=== PATIENT | female | born 1950 | race Caucasian/White ===

== ENCOUNTER 2019-09-23 18:38 | Inpatient (IN) | payer MEDICARE, OTHER, SELFPAY ==
[2016-01-15 22:39] VITALS: BMI 26.4
[2019-09-23 19:04] VITALS: BP 134/66; PULSE 89; RESP 16; TEMP 36.8; O2SAT 100; BMI 29.2
--- NOTE | 2019-09-23 21:00 | NURSING ---
Addendum entered by Domenica Horan 09/24/19 01:08: staff spends over an hour with pt and at this time. Original Note: this nurse went into pt room to explain rehab routine, visiting hours, phone call light etc to pt and pt . admission questions asked and medications reviewed with pt and . pt and adamant that this nurse use home anti-rejection meds for kidney. This nurse explains to pt and that the medications cannot be used here unless we do not have them on hand in our pharmacy. pt and adamant that this nurse call pharmacy and demand that she not pay twice for medication. pharmacist Phil printed off [facility] policy for meds for pt. this nurse clarified with pt and the policy. This nurse asks to leave once home meds are obtained and reviewed since visiting hours are over. This nurse explained that tonight only since was helping with home meds and admission meds that he was able to stay after the visiting hours. pt tells this nurse that previous facility told them [facility] didn't have strict visiting hours. this nurse gives the correct 4-8 visiting hours and tells him to enter through main entrance prior to 6p per Bianca's wishes for RU and visitation. and pt state understanding of visiting hours and that is to be only visitor during stay in [facility]. this nurse then reminds that it is after visiting hours and he needs to exit the unit after gathering his things. this nurse then leaves the pt room to double check med orders. this nurse returns to room around 2200 to find pt still at bedside. this nurse escorts pt out of [facility] at this time. will continue to educate pt on rehab routine and visiting hours.
[2019-09-23 22:00] VITALS: BP 130/60; PULSE 86; RESP 16; TEMP 36.8; O2SAT 95
[2019-09-23 22:23] VITALS: PULSE 86
[2019-09-23] MEDS: hydrALAZINE 25 MG Tablet PO (22:23)
[2019-09-23] MEDS: Mycophenolate Mofetil 250 MG Capsule 750 MG PO (22:24)
[2019-09-23 22:50] LABS: Bedside Glucose 90 mg/dL (70-110)
[2019-09-23] MEDS: oxyCODONE 5 MG Tablet PO (22:53)
--- NOTE | 2019-09-23 23:31 | NURSING ---
upon attempting to do hs assessment pt began to get tearful stating that she was having pain and she didn't think that she could stand to be rolled around like that right now. pt states that she had a long day. this nurse medicates pt with PRN oxyir and tells pt that in 30 minutes we could proceed with hs assessment. pt agreeable and no longer tearful. will continue to assess pain.
[2019-09-24] VITALS (10 sets, daily range): BP systolic 125–212; BP diastolic 47–68; PULSE 79–81; RESP 16–18; TEMP 36.5–37.1; O2SAT 93–97
--- NOTE | 2019-09-24 00:06 | NURSING ---
assisted rn with assessment and pt was very reluctant to move any way that staff suggested , staff assured pt that we would be as careful as possible but there would pain with movement. staff had waited as per pt request to wait for pain medication to effect. assessment was completed when hs care was done, so that pt would be only moved one time. pt tearful with movement or conversation. pt became angry when staff was educating her on rehab routine and that assessments would be done twice a day. after leaving pt room staff overheard pt talking loudly to her spouse on the phone that staff here was horrible and neurotic, with bad attitudes. and that she had has rights and will not be pushed around and doesn't want to stay here. she was going to have people look at her ass twice a day and rolling her around in the bed. she was not getting out of bed until she talked to the doctor in the morning. rn made aware of the conversation
[2019-09-24] MEDS: DIFLUPREDNATE 5 ML DROPS 1 DRP OP ×3 (00:12→22:37)
--- NOTE | 2019-09-24 00:16 | NURSING ---
Addendum entered by Domenica Horan 09/24/19 01:08: staff spends 45 minutes in room with pt at this time. Original Note: upon doing hs assessment, pt becomes very upset and angry with staff. pt tells this nurse and [employer] Maria De Jesus that every other hospital that she has been to has never checked over her skin or made her roll over like this. this nurse and [employer] Maria De Jesus explain to pt that this is needed just to be sure that the pt has no bed sores, open areas, and to document the bruises and surgical wound. this nurse tells pt that nursing staff assesses pt skin, heart, lungs and bowel sounds every shift each day. pt angry and states that this will no longer happen and she is talking to the doctor. when assisting pt with the removal of pants for skin assessment, pt reluctant to move at all to help staff. [employer] asks pt if she is able to move her hips at all to help. pt states that she is not able to move much at all. [employer] asks pt about how she moved at home and if she was walking much at home before the accident. pt very angry, tearful and states don't you dare talk down to me. this nurse and [employer] explain to patient that no one was talking down to her, just a question to get a pt history. pts pants were able to be removed without rolling the pt. brief unfastened and stool noted. staff the tells pt that we would have to roll her in order to change the brief and remove the extra sheets from the ambulance ride. pt asks that we only roll her one way. this nurse tells pt that staff will try their hardest to only have to roll one way but we might have to roll again to fix sheets. pt rolls to left side with some complaints of pain. this nurse wipes stool from buttocks and stool noted to be darker red in color with a small clot. sheets and green pad tucked farther under pt with brief. pt then rolled to her back without staff assist. staff notices that pt will have to roll a small amount to straighten out green pad and brief. pt looks at this nurse and yells at nurse you lied to me. you told me i would only have to roll once. this nurse states to pt i did not lie to you, i said that we might have to roll again if the sheets needed to be fixed. pt tearfully agrees to roll slowly. staff assists pt to roll a small amount onto right side. pt loudly screams at staff to HURRY UP, HURRY UP AND FINISH THIS NOW. staff fixes green pad and brief and assists pt to her back. pt angry and states that she will not be doing that again. staff assists pt by pulling up in bed. and covered with blankets. staff has call light within reach and telephone. pt claims that she will be calling her . this nurse asks pt if staff could check blood sugar at 0200 since the hs blood sugar was 90 and a snack was given. pt declines rudely and tells staff that if she is sleeping to not wake her. this nurse asks about pain medication and pt requests to be awoken for pain med. after pt is calm and comfortable, staff leaves room and pt calls . staff overhears pt on telephone and pt tells that staff has attitudes, staff is neurotic, and she won't do this again. staff members agree that neither were rude nor had a bad attitude- staff actually tried to console pt when upset. staff also agrees to take 2 staff members in room at all times when care is being done.
[2019-09-24] MEDS: oxyCODONE 5 MG Tablet PO ×3 (02:59→15:35)
[2019-09-24] MEDS: Acetaminophen 325 MG Tablet 650 MG PO (04:27)
[2019-09-24 05:43] LABS: Hematocrit 21.2 % (37-47); Hemoglobin 6.5 g/dL (12.0-15.0); Mean Corp Hgb Conc 30.7 g/dL (32-36); Mean Corpuscular Hgb 29.3 pg (27.0-32.0); Mean Corpuscular Volume 95.5 fL (81-99); Platelet Count 266 K/mm3 (150-450); RBC Distribution Width CV 13.9 % (11.6-14.6); RBC Distribution Width SD 47.5 fl (35.1-43.9); Red Blood Count 2.22 M/mm3 (4.2-5.4); White Blood Count 5.7 K/mm3 (4.4-11.0)
[2019-09-24 06:15] LABS: ALB/GLOB Ratio 0.8 RATIO (0.9-2.4); AST(SGOT) 21 U/L (15-37); Alanine Aminotransfer ALT/SGPT 14 U/L (13-56); Albumin, Serum 2.4 g/dL (3.2-5.0); Alkaline Phosphatase 126 U/L (45-117); Anion Gap 3 (5-15); BUN 24 mg/dL (7-18); BUN/Creat Ratio 23.1 RATIO (10-20); Calcium,Total 7.8 mg/dL (8.5-10.1); Chloride 100 mmol/L (98-107); Creatinine, Serum 1.04 mg/dL (0.55-1.02); EST Glomerular Filtration Rate 56 mL/min (>60); Est Glom Filt Rate - Afr Amer 68 mL/min (>60); Estimated Creatinine Clearance 52.23 ml/min; Globulin 3.1 g/dL (2.2-4.2); Glucose 82 mg/dL (74-106); Phosphorus 3.1 mg/dL (2.5-4.9); Potassium 4.2 mmol/L (3.5-5.1); Protein, Total 5.5 g/dL (6.4-8.2); Sodium Level 130 mmol/L (136-145)
[2019-09-24] MEDS: Levothyroxine 50 MCG Tablet PO (06:38)
[2019-09-24] MEDS: Pantoprazole Sodium 40 MG Tablet PO (06:38)
[2019-09-24 06:46] LABS: Bedside Glucose 82 mg/dL (70-110)
[2019-09-24] MEDS: Carvedilol 25 MG Tablet PO ×2 (08:48→16:50)
[2019-09-24] MEDS: NIFEdipine 60 MG Tablet PO (08:48)
[2019-09-24] MEDS: hydrALAZINE 25 MG Tablet PO ×2 (08:48→22:37)
[2019-09-24] MEDS: Aspirin E.C. 81 MG Tablet PO (08:48)
[2019-09-24] MEDS: Mycophenolate Mofetil 250 MG Capsule 750 MG PO ×2 (08:49→22:37)
[2019-09-24] MEDS: predniSONE 5 MG Tablet PO (08:49)
[2019-09-24] MEDS: Smz/Tmp Ds Tablet 1 TABLET PO (08:49)
[2019-09-24] MEDS: Docusate Sodium 100 MG Capsule 200 MG PO (08:49)
[2019-09-24] MEDS: Enoxaparin 40 MG/0.4 ML Syringe SC (08:49)
[2019-09-24] MEDS: Ferrous Sulfate 325 MG Tablet PO (08:49)
[2019-09-24] MEDS: glipiZIDE 10 MG Tablet PO (08:49)
[2019-09-24] MEDS: Lidocaine 5% Patch 1 PATCH TOPICAL (08:50)
[2019-09-24] MEDS: ENTECAVIR 0.5 MG TABLET PO (08:50)
[2019-09-24] MEDS: Tacrolimus Anhydrous 1 MG Capsule 8 MG PO (08:50)
[2019-09-24 09:17] LABS: Hemoglobin A1c 5.8 % (3.8-5.6)
[2019-09-24] MEDS: Senna Tablet 2 TABLET PO (10:13)
[2019-09-24 11:50] LABS: Bedside Glucose 84 mg/dL (70-110)
--- NOTE | 2019-09-24 11:58 | PCM.HP.STD ---
Problem List (1) Closed intertrochanteric fracture of right femur Status: Acute Qualifiers: Encounter type: subsequent encounter (2) Diabetes mellitus type 2 in obese Status: Chronic (3) Chronic constipation Status: Chronic (4) Diabetic polyneuropathy Status: Chronic Qualifiers: Diabetes mellitus type: type 2 Qualified Code(s): E11.42 - Type 2 diabetes mellitus with diabetic polyneuropathy (5) History of hepatitis C Status: Chronic Comment: she has not had hep C BUT, she got a kidney with Hep C and she has been treated with Mavret (6) History of renal transplant Status: Acute Comment: May of 2019 (7) 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 Bolivar Rankin at [facility] (12) Edema Status: Chronic Qualifiers: Edema type: localized Qualified Code(s): R60.0 - Localized edema Comment: BL LE's due to venous insufficiency (13) Abnormal mammogram Status: Chronic (14) Anxiety Status: Chronic (15) Cataract Status: Chronic (16) Depression Status: Chronic (17) Diabetes mellitus Status: Chronic Qualifiers: Diabetes mellitus type: type 2 Diabetes mellitus complication status: with kidney complications Diabetes mellitus complication detail: with chronic kidney disease Chronic kidney disease stage: stage 5, not on chronic dialysis Comment: had a renal transplant in May of 2019 (18) Hyperlipidemia Status: Chronic (19) Hypertension Status: Chronic (20) Myopia Status: Chronic (21) Osteoarthritis Status: Chronic (22) Type 2 diabetes mellitus with Charcot's joint of right foot Status: Chronic (23) Left carotid bruit Status: Chronic (24) GERD (gastroesophageal reflux disease) Status: Chronic (25) Atelectasis Status: Acute History of Present Illness Date of Admission: 09/23/19 Chief Complaint: DEBILITY DUE TO RECENT FALL WITH FRACTURE OF THE R HIP. S/P ORIF WITH CEPHALOMEDUALLRY NAIL Nydia Vail is a 69 year old F with a past medical history of hypertension, hyperlipidemia, diabetes mellitus type 2, hypothyroidism, osteoarthritis, ESRD with renal transplant in May 2019, Hep C of the transplanted kidney, Charcot foot on the R, diabetic peripheral polyneuropathy, exudative macular degeneration, Chronic steroids to prevent rejection, FH of CVD, chronic constipation, fibrocystic breast disease, venous insufficiency, anxiety/depression and recent right intertrochanteric hip fracture secondary to a fall. She had ORIF of the R hip on 09/13/19 and a cephalomedullary nail was placed. Post acute stay she was transferred to [facility] acute rehab. Her lab on 09/23/19 prior to leaving [facility] revealed a HGB of 6.5. She requested to be transferred from [facility] to [facility] acute rehab and this transpired on 09/23/2019. she arrived from [facility] with a Flynn catheter in place. She will do > 3 hours of therapy daily to restore her at or near her prior level of function. All paperwork from [facility] was reviewed. Maria De Jesus informs me that she is still getting weekly labs for nephrology and we will have to call her card grader to get a list of the labs required. She denies any hx of CVD. All labs drawn this AM at [facility] have been personally reviewed. White blood cell count is normal at 5.7 and the platelets are normal at 266,000. The hemoglobin is 6.5 with an MCV of 95.5 and an MCH of 29.3. Sodium is low at 130. The BUN is 24 with a creatinine of 1.04. Hemoglobin A1c is 5.8. Phosphorus and magnesium are within normal limits. Total bilirubin was mildly increased at 1.1. The alk phos is also mildly increased at 126-more likely than not secondary to recent fracture. Blood sugars have all been less than 100 since arrival at [facility]. Past Medical History Past Medical History (Chronic Problems): Chronic Problems Diabetes mellitus type 2 in obese (Chronic) Chronic constipation (Chronic) Diabetic polyneuropathy (Chronic) History of hepatitis C (Chronic) she has not had hep C BUT, she got a kidney with Hep C and she has been treated with Mavret Exudative age-related macular degeneration (Chronic) Fibrocystic breast disease (Chronic) Acute on chronic anemia (Chronic) Osteoarthritis (Chronic) Type 2 diabetes mellitus with Charcot's joint of right foot (Chronic) Left carotid bruit (Chronic) GERD (gastroesophageal reflux disease) (Chronic) Depression (Chronic) Hyperlipidemia (Chronic) Hypertension (Chronic) Diabetes mellitus (Chronic) had a renal transplant in May of 2019 Edema (Chronic) BL LE's due to venous insufficiency Cataract (Chronic) Abnormal mammogram (Chronic) Myopia (Chronic) Anxiety (Chronic) Allergies amoxicillin Allergy (Verified 01/15/16 21:29) Unknown Home Medications: Ambulatory Orders Medication Instructions Recorded ALPRAZolam [Xanax] 0.5 mg PO BID PRN PRN #30 tablet 01/27/16 Atorvastatin Calcium [Lipitor] 80 mg PO QHS #30 tablet 01/27/16 Cholecalciferol (VIT D3) [Vitamin 4,000 unit PO DAILY@0800 #0 tablet 01/27/16 D3] Dextran 70/He-Cell [Tears 2 drop EACH EYE Q1H PRN PRN #0 01/27/16 Naturale, Artificial Tears] bottle Fluticasone 0.05% [Flonase Nasal 1 spray NASAL BID #1 nasal.sry 01/27/16 Parlin] Furosemide [Lasix] 40 mg PO BID@1000,1800 #60 tablet 01/27/16 Insulin Detemir [Levemir FlexPen] 10 units SC BID #1 insuln.pen 01/27/16 Ipratropium/Albuterol Sulfate 3 ml INHALATION Q6H PRN PRN #30 01/27/16 [Duoneb] ampul.neb Linagliptin [Tradjenta] 5 mg PO DAILY@0800 #30 tablet 01/27/16 Loratadine [Claritin] 10 mg PO DAILY #30 tablet 01/27/16 Paroxetine [Paxil] 20 mg PO DAILY@0800 #30 tablet 01/27/16 proMETHazine tablet [Phenergan 25 mg PO Q6H PRN PRN #30 tablet 01/27/16 tablet] traZODone [Desyrel] 50 mg PO QHS #30 tablet 01/27/16 Acetaminophen [Tylenol] 650 mg PO Q6H PRN PRN 09/23/19 Aspirin E.C. [Ecotrin] 81 mg PO DAILY@0800 09/23/19 Carvedilol [Coreg (Beta Soraya)] 25 mg PO BIDCM 09/23/19 Ferrous Sulfate 325 mg PO DAILY@0800 09/23/19 Bisacodyl [Dulcolax] 10 mg PO DAILY PRN 09/24/19 Lactobacillus Rhamnosus GG 1 cap PO BID 09/24/19 [Culturelle] Surgical History: - - Renal transplant May 2019. ORIF of the R hip on 09/13/19 at [facility]. Surgery on the R foot in the remote past for Charcots foot. Psychiatric History: Anxiety, Depression LABELER History: - - History of thickened endometrium Lives: Spouse/ Significant Other - Husbands name is Mannie Smoking Status: Never smoker Tobacco Use: Non-smoker Alcohol: Occasional Drugs: None - *Family History Maternal History Items: Diabetes, High Cholesterol, Heart Disease, Hypertension, Renal Disease Paternal History Items: High Cholesterol, Heart Disease, Hypertension, Stroke Sibling History Items: Asthma, Cancer, Diabetes, High Cholesterol, Heart Disease, Hypertension Review of Systems Constitutional: Reports: Anorexia - since the hip fracture, Weakness, Fatigue. Denies: Chills, Fever, Weight Change Eyes: Reports: Blurred vision - this is chronic due to exudative macular degeneration HEENT: Denies: Difficulty Hearing, Difficulty Swallowing, Head Aches, Nasal Congestion, Sinus Congestion, Sinus Drainage, Sore Throat Cardiovascular: Reports: Edema, Light Headedness. Denies: Chest Pain, Palpitations, Syncope Respiratory: Reports: Shortness of breath upon exertion. Denies: Cough, Shortness of breath at rest, Sputum production Gastrointestinal: Reports: Constipation. Denies: Abdominal Pain, Diarrhea, Dyspepsia, Nausea, Vomiting Genitourinary: Denies: Dysuria Musculoskeletal: Reports: Joint Pain - R hip, Shoulder Pain - right. Denies: Joint Tenderness Skin: Reports: Wounds - she has an incision R hip from recent ORIF for hip fracture. Denies: Jaundice, Rash Neurological: Reports: Numbness - both feet. Denies: Change in Speech, Confusion, Difficulty swallowing, Focal weakness, Tingling, Tremor, Seizures Psychiatric: Reports: Anxiety, Depression. Denies: Homicidal Ideations, Suicidal Ideations Endocrine: Denies: Hx of Irradiation Hematologic/ Lymphatic: Denies: Easy Bruising, Easy Bleeding, Hx of blood clot VTE Information - Inpt Only VTE Present on Admission: No VTE Mechan Device Prophylaxis: Knee High KARRIE Hose VTE Pharm Prophylaxis ordered?: Yes Patient Problems: Active and Suspected Problems Closed intertrochanteric fracture of right femur (Acute) History of renal transplant (Acute) May of 2019 Scleritis (Acute) History of open reduction and internal fixation (ORIF) procedure (Acute) 09/13/[address] Bolivar Rankin at [facility] Atelectasis (Acute) - Physical Exam Vitals/I&O's: Vital Signs Temp Pulse Resp BP Pulse Ox 98.7 F 81 18 125/68 H 97 09/24/19 09:29 09/24/19 09:29 09/24/19 09:29 09/24/19 09:29 09/24/19 09:29 Oxygen Delivery Method Room Air Weight: 201 lb 8.04 oz Body Mass Index (BMI) 29.2 Intake and Output for Last 24 Hours 09/22/19 09/23/19 09/24/19 23:59 23:59 23:59 Intake Total 720 / 720 Output Total 1175 / 1175 Balance -455 / -455 General: Alert, Oriented x3, Cooperative, No apparent distress, Well developed, Well nourished, - - seems very fatigued HEENT: Atraumatic, - - pupil is irregular on the right Oral: No Gingival or Mucosal Lesions/ Ulcerations, Dry Mucosa Neck: Supple, No JVD, No Nodes, Trachea Midline, Carotid Bruit, Left, - - Carotids have brisk upstroke and excellent pulse volume Lungs: Diminished, Rales - coarse crackles in the bases......not able to use the IS effectively. No wheezes, no conversational dyspnea. Not tachypneic. No accessory muscle use. Cardiovascular: Regular rate, Regular Rhythm, Normal S1, Normal S2, No murmurs, No Ectopic Activity, No rub noted, No Gallop Abdomen: Bowel Sounds Present, Soft, Non Tender, Non-Distended, - - No guarding with palpation. No abdominal bruits appreciated. Extremities: No clubbing, No cyanosis, Edema - Right greater than left Skin: No rashes, No breakdown, - - incision R hip Musculoskeletal: Arthritic Changes Neurological: Cranial nerves II-XII grossly intact, Neuro grossly intact - decreased sensation in the feet Psych/Mental Status: Appropriate, Flat Affect Laboratory Results 09/23/19 22:29: POC Glucose 90 07/28/20 05:25: WBC 5.7, RBC 2.22 L, Hgb 6.5 L, Hct 21.2 L, MCV 95.5, MCH 29.3, MCHC 30.7 L, RDW Std Deviation 47.5 H, RDW Coeff of Laila 13.9, Plt Count 266, MPV 9.0 09/24/19 05:25: Sodium 130 L, Potassium 4.2, Chloride 100, Carbon Dioxide 27.0, Anion Gap 3 L, BUN 24 H, Creatinine 1.04 H, Estim Creat Clear Calc 52.23, Est GFR (MDRD) Af Amer 68, Est GFR (MDRD) Non-Af 56 L, BUN/Creatinine Ratio 23.1 H, Glucose 82, Calcium 7.8 L, Phosphorus 3.1, Magnesium 2.0, Total Bilirubin 1.10 H, AST 21, ALT 14, Alkaline Phosphatase 126 H, Total Protein 5.5 L, Albumin 2.4 L, Globulin 3.1, Albumin/Globulin Ratio 0.8 L 09/24/19 05:25: Hemoglobin A1c 5.8 H 09/24/19 06:40: POC Glucose 82 09/24/19 11:45: POC Glucose 84 Current Medications Acetaminophen (Tylenol) 650 mg PO Q6H PRN PRN PRN Reason: Pain Score 1-3/10 Last Admin: 09/24/19 04:27 Dose: 650 mg Documented by: Aspirin (Ecotrin) 81 mg PO DAILY@0800 [facility] Last Admin: 09/24/19 08:48 Dose: 81 mg Documented by: Bisacodyl (Dulcolax) 10 mg RECTAL .PRN X 1 PRN PRN Reason: Constipation Bisacodyl (Dulcolax) 10 mg PO DAILY PRN PRN PRN Reason: Constipation [facility]) [facility] Last Admin: 09/24/19 08:48 Dose: 25 mg Documented by: Dextrose (D50w Syringe) 0 gm IV X1 PRN; Protocol PRN Reason: Hypoglycemia Docusate Sodium (Colace) 200 mg PO DAILY [facility] Last Admin: 09/24/19 08:49 Dose: 200 mg Documented by: Enoxaparin Sodium (Lovenox) 40 mg SC DAILY@0600 [facility] Stop: 10/07/19 08:01 Last Admin: 09/24/19 08:49 Dose: 40 mg Documented by: Ferrous Sulfate (Ferrous Sulfate) 325 mg PO DAILY@0800 [facility] Last Admin: 09/24/19 08:49 Dose: 325 mg Documented by: Glipizide (Glucotrol) 10 mg PO DAILY@0730 [facility] Last Admin: 09/24/19 08:49 Dose: 10 mg Documented by: Glucagon () 1 mg IM .X1 PRN PRN Reason: Hypoglycemia Hydralazine HCl (Apresoline) 25 mg PO BID [facility] Last Admin: 09/24/19 08:48 Dose: 25 mg Documented by: Insulin Glargine (Lantus (Bkc)) 22 units SC QHS [facility] Last Admin: 09/23/19 22:33 Dose: Not Given Documented by: Insulin Human Lispro (Humalog Kwikpen (Bkc)) 2 unit SC TIDAC [facility] Last Admin: 09/24/19 11:46 Dose: Not Given Documented by: Insulin Human Lispro (Humalog Kwikpen (Bkc)) 0 unit SC TIDAC [facility]; Protocol Last Admin: 09/24/19 11:47 Dose: Not Given Documented by: Lactobacillus Acidophilus (Acidophilus) 1 tablet PO BID [facility] Last Admin: 09/24/19 11:50 Dose: 1 tablet Documented by: Levothyroxine Sodium (Synthroid) 50 mcg PO DAILY@0600 [facility] Last Admin: 09/24/19 06:38 Dose: 50 mcg Documented by: Lidocaine (Lidoderm Patch) 1 patch TOPICAL DAILY [facility]; Protocol Last Admin: 09/24/19 08:50 Dose: 1 patch Documented by: Magnesium Hydroxide (Milk Of Magnesia) 30 ml PO .PRN X 1 PRN PRN Reason: Constipation Mycophenolate Mofetil (Cellcept) 750 mg PO BID [facility] Last Admin: 09/24/19 08:49 Dose: 750 mg Documented by: Nifedipine (Procardia Xl) 60 mg PO DAILY [facility] Last Admin: 09/24/19 08:48 Dose: 60 mg Documented by: Ondansetron HCl (Zofran Odt) 4 mg PO Q6H PRN PRN PRN Reason: NAUSEA/VOMITING Oxycodone HCl (Oxyir) 5 mg PO Q4H PRN PRN PRN Reason: Pain Score 1-10/10 Last Admin: 09/24/19 09:06 Dose: 5 mg Documented by: Pantoprazole Sodium (Protonix) 40 mg PO DAILY [facility] Last Admin: 09/24/19 06:38 Dose: 40 mg Documented by: Polyethylene Glycol (Miralax) 17 gm PO DAILY PRN PRN Reason: Constipation Prednisolone Acetate (Pred Forte Eye Drops (1 Ml)) 1 drop RIGHT EYE QODAY@2200 [facility] Prednisone () 5 mg PO DAILY@0800 [facility] Last Admin: 09/24/19 08:49 Dose: 5 mg Documented by: Senna (Senokot) 2 tablet PO BID [facility] Last Admin: 09/24/19 10:13 Dose: 2 tablet Documented by: Tacrolimus (Prograf) 8 mg PO DAILY [facility] Last Admin: 09/24/19 08:50 Dose: 8 mg Documented by: Trimethoprim/Sulfamethoxazole (Bactrim Ds) 1 tablet PO DAILYCM [facility] Last Admin: 09/24/19 08:49 Dose: 1 tablet Documented by: Assessment/Plan All Active Problems Closed intertrochanteric fracture of right femur (Acute) History of renal transplant (Acute) Scleritis (Acute) History of open reduction and internal fixation (ORIF) procedure (Acute) Atelectasis (Acute) Shortness of breath (Resolved) Acute kidney injury (Resolved) Chronic kidney disease (Resolved) Congestive heart failure (Resolved) Iron deficiency anemia (Resolved) Impressions 1. Debility due to recent Fall resulting in a R hip fracture on debility due to Renal transplant in May 2019. Pt is also on treatment for Hep C kidney and the medication has made her very tired. 2. ORIF of R hip on 09/13/[address] Bolivar Rankin at [facility] on 09/13/19 3. acute blood loss anemia -hemoglobin is 6.5 with normochromic normocytic indices. 4. hyponatremia 5. DM II with a HGBA1C of 5.8 which is too low for this age group. She was hypoglycemic the day prior to admission to [facility] rehab 6. Constipation 7. anxiety and depression - reportedly on Paxil and Xanax prior to hip fracture........not on either of these medications at [facility]. 8. Presence of Flynn at admission to the rehab unit.......pt is not sure why the Flynn is in other than she was told it was so she would not have to get up to the B[facility]. 9. chronic medical conditions: Status post renal transplant in May 2019/hypertension/hyperlipidemia/diabetes mellitus type 2/diabetic peripheral polyneuropathy/Charcot foot on the right/GERD/obesity/history of a cardiomyopathy in 2016 at which time her EF was 40% per a note from Dr. Rocio Bourgeois/fibrocystic breast disease/endometrial thickening/exudative age-related macular degeneration/history of scleritis/hypothyroidism PLAN PT for gait stability OT for ADL's Analgesics as needed - R hip surgery was 11 days ago......would like to limit narcotics Bowel protocol Fall precautions Assess for Anxiety/Depression - If she has been off Paxil since hip surgery would like to start Effexor rather than Paxil to help with pain. GI prophylaxis with Protonix DVT prophylaxis with enoxaparin 40 mg daily Type and crossmatch for 2 units of packed red blood cells and transfuse today Recheck lab in the a.m. Check a vitamin D level, TSH, T4, iron studies Will need to contact [facility] transplant team and find out what labs she is to get weekly Schedule Tylenol 1,000 mg every 8 hours. Follow up with: Dr. Bolivar Rankin ortho 09/30/19 at 10:[address] Ramirez Barrios (OPTHAMOLOGY) ON 09/30/19 Dr. Cecilia Kruse (endocrinology) 10/03/19 at 1 PM Kidney transplant clinic 10/03/19 at 10:[address] Bela Espitia - PCP, 10/04/19 at 3:20 PM Will need to ask the kidney transplant Team if OK to use Voltaren topical for pain relief Inpatient E&M: [id number] Init Hosp L3
[2019-09-24 14:03] LABS: Ferritin 3759 ng/mL (8-252); Iron 35 ug/dL (50-170); Iron Binding Capacity,Total 173 ug/dL (250-450); PERCENT IRON SATURATION 20.2 % (15.0-55.0); T4 Free Direct 1.19 ng/dL (0.76-1.46); Thyroid Stim Hormone (TSH) 2.05 uIU/mL (0.358-3.74)
--- NOTE | 2019-09-24 14:34 | REHABEVAL_ITS ---
Admission Information Primary Diagnosis:: Debility secondary to recent fall resulting in a right hip intertrochanteric fracture. Patient had repair on 09/13/[address] Bolivar Rankin with placement of a cephalo-medullary nail. Status Changes from Prescreening?: Functional - not as functional as we were lead to believe.........may be related to severe anemia - HGB was 6.5 when she was transferred to [facility] Actual Problem List:: Bleeding, Falls, Skin Intergrity, Pain, ALteration in Cmfrt, Depression, Alteration in Sleep, Alteration in Nutrition - she has no appetitie, Mobility Impaired, Self Care Deficit, Diabetes, Hypoglycemia, Alteration/ Air Exchange, Fluid Change-Dehydration, Alteration-Leisure Activ. Potential Problem List:: DVT, Bleeding, Infection, UTI, Aspiration, Falls, Skin Integrity, Depression Risk of Complications DVT: LMWH, KARRIE Hose Bleeding: Monitor Lab Values, Nursing to Teach Precautions for anti-coagulation therapy., Wound, if applicable, to be assessed every shift., Stroke patients assessed for lethargy or change in status. Infection: Clinical Staff to Monitor for S/S of infection:, S/S of infection include fever, redness, warmth, etc. Urinary Tract Infection: Monitor for frequency, burning, discomfort, or incontinence., Nursing will obtain urine sample for urinalysis and C&S when ordered. Aspiration: Clinical staff will monitor for coughing, drooling, congestion., Speech will evaluate swallowing and dsyphasia., Nursing will monitor patient swallowing during meals. Falls: Patient will be evaluated for Fall Precautions, Patient will be placed on Fall Precautions as indicated per protocol. Skin Breakdown: Nursing will assess skin daily using assessment tool., Nursing will place on Skin Breakdown Precautions as indicated. Pain: Clinical staff will assess patient's pain level per protocol., Medications will be given, if needed, and the pain level reassessed., Other methods: Massage, distraction, decrease stimulus, etc. used PRN. Plan of Care Patient requires physician specializing in physical medicine and rehab oversight to provide close medical supervision of rehab issues including: Pain Management, Sleep Problems, Bowel and Bladder, Medical and co-morbidity Management, DVT prophylaxis, Rehabilitation Leadership, Coordination of treatment team Patient needs Physical Therapy: At least 5 out of 7 days, For a minimum of 1.5 hrs Patient needs Physical Therapy to improve:: Mobility, Mobility, Mobility, Strengthening, Transfers, Stretching, ROM, Endurance, Stairs, Gait, Balance Patient needs Occupational Therapy: At least 5 out of 7 days, For a minimum of 1.5 hrs Patient needs Occupational Therapy to improve ADL's incl.: Eating, Grooming, Bathing, Dressing, Toileting, Toilet transfers, Community Reintegration, Higher functioning activities, Household tasks, Adaptive Equipment, Splinting, Other activities as determined Patient requires 24/7 Rehabilitation Nursing for: Pain Issues, Identifying and preventing risk factors, Monitoring and reporting current medical conditions, Assisting with ambulation, transfer, and all ADL's, Teaching patients about disease process and medications, Family teaching, Providing safe environment, Bowel and Bladder Issues, Skin integrity, Medication Management Patient needs Historiography Professor/ Case Management for: Discharge Planning, Arranging Home Equipment or Services, Family Interventions Patient needs Dietary and Nutrition Services for: Adequate Nutrition, Nutritional Supplements, Nutritional Education Goals Patient will remain: free from falls, or injury at time of discharge. Patient will perform bed mobility at: MOD I level of assist. Patient will complete transfers from bed to chair at: MOD I level of assist. Patient will ambulate: with LRD, - - 50 ft with CGA Patient will complete upper body dressing at: MOD I level of assist. Patient will complete lower body dressing at: MOD I level of assist. Patient will complete toileting at: MOD I level of assist. Patient will perform bathing at: Standby Assist. Patient will complete grooming at: MOD I level of assist. Patient will complete home management skills at: - - simple meal prep Patient will achieve: 12 stairs, - - CGA Patient will have pain level of: of 3 or less Patient's skin will: remain intact, free from infection. Patient will receive: adequate nutrition. Discharge Planning Pt Prognosis for Sig. Practical Improv. w/in Reasonable Time: Good Estimated Length of stay (days): 14 Anticipated D/C Destination: Home with Home Health Was Preadmission Assessment Accurate?: Yes
[2019-09-24] MEDS: Acetaminophen 500 MG Tablet 1000 MG PO ×2 (15:05→22:38)
--- NOTE | 2019-09-24 15:45 | MDS.RN ---
Left message with Dr dozier office for dressing change/removal, staple removal and to see if pt ok to shower, and to reschedule 09/[address] appointment. [address] message [address] Kruse/transplant clinic to see if they want to do a phone visit or reschedule 10/02 appointment.
--- NOTE | 2019-09-24 16:06 | CASEMGMT ---
Social Work Met with patient for initial assessment. Spoke with patient at length and provided supportive listening to pt's past medical history, issues and experience at [facility]. Pt tearful off and on throughout conversation. Provided emotional support and encouragement. Discussed issues and concerns - problem solved to resolve those. Pt appreciative of SW and therapy staff thus far during admission. Pt's wishes are to remain in [facility] for therapy and nursing. pt grateful for physician assisting with medication changes. Completed PHQ-9. Pt scored 15/27. Pt expressed being depressed and anxious and requesting medication. Physician notified and agreeable to start medication. Pt expressed she is strong in her elizabeth. Provided positives and encouragement. Pt agreed to referral to [facility]. Referral made but out of the office until 09/29. Pt understandable. Pt calm and appreciative of visit at the end of the conversation. Offered continued assistance. Will continue to follow for discharge planning and support. Huong Wing, [facility]
[2019-09-24 16:49] LABS: Bacteria 0 SEEN /hpf (None Seen); Mucous, Urine 0 SEEN /hpf (<or=2+)
[2019-09-24] MEDS: GLECAPREVIR/PIBRENTASVIR 1 EACH TABLET 3 EACH PO (16:50)
[2019-09-24 16:54] LABS: Color, Urine Yellow (Yellow); Glucose, Dipstick Normal (Normal); Ketone-Dipstick Negative (Negative); Leukocyte Esterase-Dipstick 25 /ul (Negative); Nitrite-Dipstick Negative (Negative); Occult Blood-Urine 10 /ul (Negative); Protein-Dipstick 30 mg/dl (Negative); Urine Bilirubin Dipstick Negative (Negative); Urine Clarity Clear (Clear); Urine Urobilinogen 1 mg/dl (Normal)
[2019-09-24 16:56] LABS: Bedside Glucose 109 mg/dL (70-110)
[2019-09-24 17:06] LABS: Red Blood Cells-Urine 0-5 SEEN /hpf (0-5); Squamous Epithelial Cells - UA 0-5 SEEN /hpf (5-10); White Blood Cells 0-5 SEEN /hpf (0-5)
--- NOTE | 2019-09-24 22:00 | NURSING ---
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 iv blood transfusion running in RAC. blood pressure noted to be elevated in the leg. will monitor blood pressure in RUE in between transfusions.
[2019-09-24] MEDS: prednisoLONE eye drops (1 mL) 1 DROP OPTH.BTL 1 DRP RIGHT EYE (22:37)
[2019-09-24] MEDS: Senna/Docusate Sodium 1 Tablet 2 TABLET PO (22:38)
--- NOTE | 2019-09-24 22:49 | NURSING ---
pt refusing hs accu-check tonight. pt states that her and dr flores chatted about decreasing the frequency of accu-check. will leave a note for dr flores to clarify.
--- NOTE | 2019-09-24 22:55 | NURSING ---
when staff offers PRN oxyir this hs, pt denies the need for it right now. will reassess at a later time.
[2019-09-25] VITALS (15 sets, daily range): BP systolic 114–193; BP diastolic 40–67; PULSE 72–81; RESP 16–18; TEMP 36.3–37; O2SAT 92–97
[2019-09-25] MEDS: oxyCODONE 5 MG Tablet PO ×4 (02:28→20:12)
--- NOTE | 2019-09-25 02:31 | NURSING ---
upon taking vitals for blood transfusion at 0220, pt begins to get tearful because vitals must be taken hourly in the left leg and the cuff gets tight due to elevated bps in the leg. pt medicated with prn oxyir at this time due to pain in hip. will continue to monitor blood pressures. once line is flushed with saline, this nurse will check blood pressure in pts right arm. per nursing city dispatch supervisor Lissett the bp can be elevated in lower extremities due to poor readings or fit. will continue to monitor pt for a transfusion reaction and elevated blood pressures.
--- NOTE | 2019-09-25 04:07 | NURSING ---
blood pressure taken in RUE and bp was mildly elevated but not nearly as high as in the LLE. pt requests to use arm for transfusion vitals for the duration of this transfusion and thankful. will continue to monitor vital signs and continue to monitor for s/sx of a transfusion reaction.
--- NOTE | 2019-09-25 04:28 | NURSING ---
at this time this nurse was assisting pt with a cup of ice water. when the pt was moving the pillow next to her, the pillow hit the cup of ice water and it tipped off of the table. water and ice cubes spilled in the pt bed. a medium sized spot of water on sheets. this nurse asks pt if staff can get her new sheets on her bed. pt states that the wet sheet was just fine and to put a towel over it. this nurse asks again to be sure and pt answer stays the same. per pt wishes this nurse applies towel to wet spot and the pt is happy and going back to sleep. no further complaints or requests. call light within reach. will continue to monitor pt and blood transfusion.
[2019-09-25] MEDS: Acetaminophen 500 MG Tablet 1000 MG PO ×3 (06:44→21:18)
[2019-09-25] MEDS: Enoxaparin 40 MG/0.4 ML Syringe SC (06:47)
[2019-09-25] MEDS: Levothyroxine 50 MCG Tablet PO (06:47)
[2019-09-25 07:10] LABS: Bedside Glucose 196 mg/dL (70-110)
[2019-09-25] MEDS: glipiZIDE 10 MG Tablet PO (07:33)
[2019-09-25] MEDS: Ascorbic Acid 500 MG Tablet PO (07:38)
[2019-09-25] MEDS: Aspirin E.C. 81 MG Tablet PO (07:38)
[2019-09-25] MEDS: Ferrous Sulfate 325 MG Tablet PO (07:38)
[2019-09-25] MEDS: Smz/Tmp Ds Tablet 1 TABLET PO (07:38)
[2019-09-25] MEDS: predniSONE 5 MG Tablet PO (07:39)
[2019-09-25] MEDS: Senna/Docusate Sodium 1 Tablet 2 TABLET PO ×2 (07:40→21:18)
[2019-09-25] MEDS: Docusate Sodium 100 MG Capsule 200 MG PO (07:41)
[2019-09-25] MEDS: Carvedilol 25 MG Tablet PO ×2 (07:41→16:26)
[2019-09-25] MEDS: Pantoprazole Sodium 40 MG Tablet PO (07:43)
[2019-09-25] MEDS: hydrALAZINE 25 MG Tablet PO ×2 (07:43→21:22)
[2019-09-25] MEDS: Venlafaxine XR 75 MG Capsule PO (07:43)
[2019-09-25] MEDS: NIFEdipine 60 MG Tablet PO (07:44)
[2019-09-25] MEDS: Tacrolimus Anhydrous 1 MG Capsule 8 MG PO (07:45)
--- NOTE | 2019-09-25 08:00 | NURSING ---
Blood transfusion complete, patient tolerated well. IV Site free of infection right AC.
[2019-09-25 10:22] LABS: Hematocrit 28.6 % (37-47); Hemoglobin 8.8 g/dL (12.0-15.0); Mean Corp Hgb Conc 30.8 g/dL (32-36); Mean Corpuscular Hgb 30.2 pg (27.0-32.0); Mean Corpuscular Volume 98.3 fL (81-99); Mean Platelet Vol. 9.2 fl (6.2-12.0); Platelet Count 249 K/mm3 (150-450); RBC Distribution Width CV 13.9 % (11.6-14.6); RBC Distribution Width SD 49.5 fl (35.1-43.9); Red Blood Count 2.91 M/mm3 (4.2-5.4); White Blood Count 5.6 K/mm3 (4.4-11.0)
[2019-09-25] MEDS: Mycophenolate Mofetil 250 MG Capsule 750 MG PO ×2 (10:26→21:19)
[2019-09-25] MEDS: Lidocaine 5% Patch 1 PATCH TOPICAL (10:26)
[2019-09-25] MEDS: DIFLUPREDNATE 5 ML DROPS 1 DRP OP ×2 (10:27→21:19)
[2019-09-25 10:32] LABS: Anion Gap 5 (5-15); BUN 21 mg/dL (7-18); BUN/Creat Ratio 21.3 RATIO (10-20); Calcium,Total 8.4 mg/dL (8.5-10.1); Chloride 106 mmol/L (98-107); Creatinine, Serum 0.98 mg/dL (0.55-1.02); EST Glomerular Filtration Rate 60 mL/min (>60); Est Glom Filt Rate - Afr Amer 72 mL/min (>60); Estimated Creatinine Clearance 55.42 ml/min; Glucose 234 mg/dL (74-106); Potassium 4.7 mmol/L (3.5-5.1); Sodium Level 132 mmol/L (136-145)
--- NOTE | 2019-09-25 11:30 | PCM.PN.BLA ---
Progress Note Afebrile VSS Maintaining appropriate oxygen saturation on RA Oral intake is improved today Discussed with nursing - no problems that need addressed Reviewed the PT/OT notes Medication list reviewed. She was transfused with 2 units of PRBC's through the night and per staff she is doing much better today with therapy....she is not agitated and she feels she is in the right place to help her get back home All lab from today was personally reviewed. Hemoglobin today is 8.8, up from 6.5 yesterday following 2 units of packed red blood cells which were irradiated and CMV negative. White blood cell count and platelets are within normal limits. Sodium is mildly decreased at 132, up from 130 on 09/24/2019. The BUN is 21 and the creatinine is 0.98 which is down from 1.04 on 09/24/2019. Potassium is 4.7 today and calcium corrected for hypoalbuminemia is within normal limits. Vitamin D level is low at 12. Serum iron was 35, TIBC is low at 173 and the ferritin was 3759. The transferrin saturation is 20% which is consistent with iron deficiency and renal failure patients. TSH and T4 were within normal limits. UA was unremarkable. urine culture has no growth BS record was reviewed. The FBS was 196 and the Lantus was held last night due to recent hypoglycemia. Blood sugar at noon was 261. She remains on glipizide 10 mg daily and SSI. She repeats herself frequently and asks me the same questions repeatedly. When she took the Oxy IR 10 mg she got nauseated and had an emesis. She is very concerned about taking pain meds when it is time for it. I reinforced that unless she has pain that is 5 or greater she does not need to take the narcotic just because she can. she is repeating herself frequently....continues to ask me why she can not take dulcolax for constipation chronically Lungs - diminished due to poor effort. H - RRR abd - soft, no guarding. Impressions 1. Debility due to recent fall resulting in a right hip fracture with ORIF on 09/13/2019. 2. Constipation-stool softener was changed to senna S yesterday. 3. Diabetes mellitus type 2-Lantus was discontinued at the patient's request because she prefers to be managed on oral agents only. Blood sugars are high so will increase the glipizide to 10 mg in the a.m. and 5 mg in the p.m. 4. Hyponatremia 5. Acute blood loss anemia-transfused with 2 units of packed red blood cells for hemoglobin of 6.5. 6. Iron deficiency-transferrin saturation is only 20%. Will order iron sucrose. She tolerated iron sucrose without adverse reaction on 09/25/2019 so will give 200 mg daily for [address] consult for cognitive function. IV iron today Continue the Ferrous sulfate with vitamin C once a day. Add 5 mg of Glucotrol in the afternoon and continue to monitor the blood sugars......She would like not to have to take insulin. started on a vitamin D supplement Continue the Effexor....hopefully it will help control pain and we can get her off the Oxy IR I suspect she is going to require more therapy than most hip fractures because she still had some weakness/debility from the renal transplant in May STROKE Vital Signs/Narrative: Vital Signs Pulse Pulse Ox 09/25/19 09:09 92 09/25/19 07:43 78 Inpatient E&M: 75880 Subs Hosp L2
[2019-09-25] MEDS: Ondansetron ODT 4 MG Tablet PO ×2 (11:37→21:37)
[2019-09-25 12:00] LABS: Bedside Glucose 261 mg/dL (70-110)
[2019-09-25] MEDS: Insulin Lispro 100 UNIT/ML INSULN.PEN SC ×2 (12:30→16:26)
--- NOTE | 2019-09-25 13:53 | NURSING ---
Blood transfusion complete, no adverse reaction noted.
[2019-09-25] MEDS: 0.9% Saline Lock 10 ML Syringe IV ×2 (16:00→16:24)
[2019-09-25] MEDS: glipiZIDE 5 MG Tablet PO (16:26)
[2019-09-25 16:46] LABS: Bedside Glucose 228 mg/dL (70-110)
[2019-09-25] MEDS: GLECAPREVIR/PIBRENTASVIR 1 EACH TABLET 3 EACH PO (18:07)
--- NOTE | 2019-09-25 19:56 | NURSING ---
UPON WALKING INTO PT'S ROOM, PT STATES SHE DOES NOT WANT HER FOSTER CATHETER REMOVED TONIGHT AND WANTS TO WAIT UNTIL THIS MORNING FOR REMOVED. PT REPORTS SHE HAS MILD NAUSEA BUT REFUSING ANY MEDICATION TO HELP WITH THIS AT THIS TIME. PT ALSO STATES SHE DOES NOT WANT BLOOD SUGAR TAKEN BEFORE BED. PT INSTRUCTED IMPORTANCE OF PHYSICIAN KNOWING HOW BLOOD SUGARS ARE RUNNING-PT AGREES TO ALLOW CHECK TONIGHT. PT'S IS IN ROOM WITH PT.
[2019-09-25 21:16] LABS: Bedside Glucose 279 mg/dL (70-110)
--- NOTE | 2019-09-25 21:30 | NURSING ---
PT VOMITS SMALL AMOUNT DARK PINK WITH 1 PILL CAPSULE NOTED (CELLCEPT) IN EMESIS SOON AFTER TAKING MEDS. PT VERY ANXIOUS THAT SHE THAT SHE FEELS SHE HAS VOMITED ANTI REJECTION MED AND WANTS HER TRANSPLANT HOTLINE CALLED TO SEE IF SHE SHOULD RETAKE PILL. PT AGREES TO TAKE ZOFRAN FOR NAUSEA AND VOMITING.
--- NOTE | 2019-09-25 23:00 | NURSING ---
HOSPITALIST NOTIFIED AFTER NO SUCCESS CONTACTING PT'S TRANSPLANT HOTLINE AT [facility]. INFORMED THAT PT WANTS TO TAKE VOMITED CELLCEPT SHE IS WORRIED ABOUT MISSING ANTI REJECTION MED. INFORMED THAT ONLY 1 CELLCEPT FRAGMENT NOTED IN EMESIS. ORDER GIVEN TO REPLACE 1 CELLCEPT NOW. PT INFORMED AND AGREEABLE TO THIS. NO FURTHER NAUSEA OR VOMITING SINCE RECEIVING ZOFRAN. PT HAS CALLED HER TO DISCUSS HER VOMITING UP CELLCEPT.
[2019-09-25] MEDS: Mycophenolate Mofetil 250 MG Capsule PO (23:07)
[2019-09-26] MEDS: 0.9% Saline Lock 10 ML Syringe IV ×2 (05:58→20:08)
[2019-09-26] MEDS: Magnesium Hydroxide 30 ML UDC PO (06:00)
[2019-09-26] MEDS: Acetaminophen 500 MG Tablet 1000 MG PO ×3 (06:00→22:23)
[2019-09-26] MEDS: Levothyroxine 50 MCG Tablet PO (06:01)
[2019-09-26] MEDS: Enoxaparin 40 MG/0.4 ML Syringe SC (06:01)
[2019-09-26] MEDS: Ondansetron ODT 4 MG Tablet PO (06:08)
--- NOTE | 2019-09-26 06:24 | NURSING ---
FOSTER CATHETER BALLOON DEFLATED AND FOSTER CATHETER DC'D WITHOUT DIFFICULTY. 1200 ML OF CLEAR DARK YELLOW URINE DRAINED FROM FOSTER BAG.
[2019-09-26] MEDS: oxyCODONE 5 MG Tablet PO (06:31)
[2019-09-26 06:35] VITALS: O2SAT 93
[2019-09-26 07:25] LABS: Bedside Glucose 225 mg/dL (70-110)
[2019-09-26] MEDS: Insulin Lispro 100 UNIT/ML INSULN.PEN SC ×3 (08:01→16:46)
[2019-09-26] MEDS: Aspirin E.C. 81 MG Tablet PO (08:02)
[2019-09-26] MEDS: Senna/Docusate Sodium 1 Tablet 2 TABLET PO ×2 (08:02→22:23)
[2019-09-26] MEDS: Smz/Tmp Ds Tablet 1 TABLET PO (08:02)
[2019-09-26] MEDS: glipiZIDE 10 MG Tablet PO ×2 (08:02→16:43)
[2019-09-26] MEDS: Ferrous Sulfate 325 MG Tablet PO (08:02)
[2019-09-26] MEDS: Carvedilol 25 MG Tablet PO ×2 (08:02→16:43)
[2019-09-26 08:03] VITALS: PULSE 77
[2019-09-26] MEDS: hydrALAZINE 25 MG Tablet PO ×2 (08:03→22:24)
[2019-09-26] MEDS: predniSONE 5 MG Tablet PO (08:03)
[2019-09-26] MEDS: Ascorbic Acid 500 MG Tablet PO (08:03)
[2019-09-26] MEDS: Mycophenolate Mofetil 250 MG Capsule 750 MG PO ×2 (08:04→22:24)
[2019-09-26] MEDS: Lidocaine 5% Patch 1 PATCH TOPICAL (08:05)
[2019-09-26] MEDS: NIFEdipine 60 MG Tablet PO (08:05)
[2019-09-26] MEDS: Venlafaxine XR 75 MG Capsule PO (08:05)
[2019-09-26] MEDS: DIFLUPREDNATE 5 ML DROPS 1 DRP OP ×2 (08:07→22:24)
[2019-09-26] MEDS: Tacrolimus Anhydrous 1 MG Capsule 8 MG PO (08:08)
[2019-09-26] MEDS: Pantoprazole Sodium 40 MG Tablet PO (08:08)
[2019-09-26 09:08] VITALS: BP 142/67; PULSE 77; RESP 16; TEMP 36.8; O2SAT 94
[2019-09-26 11:26] LABS: Bedside Glucose 237 mg/dL (70-110)
[2019-09-26] MEDS: traMADol 50 MG Tablet PO ×2 (11:39→18:25)
[2019-09-26] MEDS: Bisacodyl 5 MG Tablet 10 MG PO (12:12)
--- NOTE | 2019-09-26 15:00 | CASEMGMT ---
Social Work IDT met with patient for Team meeting. Discussed patient's progress in therapy. Pt is mod assist for sit to stand, max for SPT, ambulating about 5 ft with FWW at mod-maxA and w/c follow, set up for UE dressing, mod for bathing, max for LE dressing. Pain meds adjusted. Pt slept well and ybarra cath is removed. Explained Medicare days approved 17 days - EDC 10/09. Explained if pt does not feel ready to DC home at that time, SW will assist with providing other options. Will ReTeam next week. Contacted as he was not present at Team. He stated he had something else come up. SW explained above information. appreciative. Will continue to follow. Huong Wing, [employer]
--- NOTE | 2019-09-26 15:51 | PCM.PN.BLA ---
Progress Note Maria De Jesus was seen on TEAM rounds today. Her Mannie could not attend. She refused to have the Flynn discontinued last night but, she was agreeable to having the catheter removed today. She is afebrile. Vital signs are stable and the blood pressure is well controlled. She is maintaining appropriate oxygen saturation on room air. Her fluid intake on 09/25/[address]/PT notes were reviewed and she will be seen by the speech therapist to evaluate cognitive function on 09/27/2019. Med list was reviewed. Blood sugar record was reviewed and with discontinuation of the Lantus the blood sugars have ranged from 1 96-279. The fasting blood sugar this morning was 225 and the at bedtime sugar was 279. Blood sugar at lunch was 237. She has been participating with therapy and she ambulated 3 ft today with PT and did supine exercises and seated toes up and heels up. She completed UE strengthening exercises with a 2 lb ball. She needed a max assist of 2 to go from supine to sitting and a moderate assist of 2 to go from sitting to standing. She is able to do her grooming at supervision/set up but required moderate assistance for bathing. She is supervision/set up for upper body dressing but totally dependent for lower body dressing. She had nausea and a small emesis again this AM after oxycodone 5 mg. Denies abd pain. She is already on a PPI for GERD. She refused Colace today but she took the senna.....this despite c/o constipation. She is deciding what she wants to do and what she doesn't and refuses things she does not want to do. Alert, forgetful Lungs - CTA, diminished due to poor effort H- RRR Abd is soft and NT, BS's are present + edema both ankles and distal RLE........KARRIE hose in place no rashes no skin breakdown Impressions 1. Debility due to recent fall resulting in a right hip fracture with ORIF on 09/13/2019 at [facility] on 09/13/2019. 2. History of renal transplant in May 2019 3. Diabetes mellitus type 2-patient would like to be only on oral agents however the blood sugars are not controlled on glipizide. An afternoon dose of glipizide was added yesterday but blood sugars remain increased so will increase the dose of the afternoon medication. If the blood sugars remain uncontrolled after a few days we will consider either adding Tradjenta 5 mg daily or restarting Lantus at at bedtime. Will change the sliding scale insulin to a low to medium scale. 4. Hyponatremia 5. Acute blood loss anemia-hemoglobin 6.5 at admission to the rehab unit and following transfusion of 2 units of packed red blood cells the hemoglobin is now 8.8. We will continue to monitor. 6. non-compliance with my orders....refused to have Flynn removed last night.....it even though it has been in for 14 days and she is at risk for infection......diaz since she is on anti-rejection medication and is immunocompromised with new hardware in the R hip. Also refusing stool softeners even though she is constipated......she then asked for a Dulcolax tablet. 7. nausea/emesis after Oxycodone - will try Tramadol I suspect the reason she was not able to ambulate at [facility] is that she was uncooperative. I find it highly unlikely that they would leave a Flynn in with a patient on immunosuppressive drugs for > 10 days post -op. At this point she should not be requiring much narcotic for pain control and we are now 14 days post-op and she has only taken 5 steps. She was very agitated on the night she came to the hospital because the nurses had to perform an assessment and told her she would be having an assessment every shift thereafter while in rehab. I am afraid we are starting off on the wrong foot and this is not going to be tolerated if it continues. I will explain this to her. DC the PRN Dulcolax because I can see her abusing this.........she has mackenzie asked me more than once why we can not use Dulcolax to treat constipation. I am awaiting a call from the transplant team to tell me what all labs she needs and to ask them if we could use a arthritis compounded cream with Voltaren to control pain. Follow up lab has been ordered for Monday. Including a Tacrolimus level. Inpatient E&M: [id number] Subs Hosp L2
[2019-09-26] MEDS: Glucerna Shake 120 ML LIQUID PO (16:42)
[2019-09-26 16:51] LABS: Bedside Glucose 297 mg/dL (70-110)
[2019-09-26 19:28] VITALS: BP 161/65; PULSE 80; RESP 16; TEMP 36.6; O2SAT 94
[2019-09-26 20:51] LABS: Bedside Glucose 280 mg/dL (70-110)
[2019-09-26 22:21] VITALS: BP 148/71; PULSE 82
[2019-09-26 22:24] VITALS: BP 148/71; PULSE 82
[2019-09-26] MEDS: prednisoLONE eye drops (1 mL) 1 DROP OPTH.BTL 1 DRP RIGHT EYE (22:24)
[2019-09-27] MEDS: Ondansetron ODT 4 MG Tablet PO (05:03)
[2019-09-27] MEDS: Acetaminophen 500 MG Tablet 1000 MG PO ×3 (06:20→20:44)
[2019-09-27] MEDS: Levothyroxine 50 MCG Tablet PO (06:21)
[2019-09-27] MEDS: Enoxaparin 40 MG/0.4 ML Syringe SC (06:21)
[2019-09-27 06:30] LABS: Bedside Glucose 239 mg/dL (70-110)
[2019-09-27 06:54] VITALS: O2SAT 96
[2019-09-27] MEDS: glipiZIDE 10 MG Tablet PO ×2 (07:37→17:04)
[2019-09-27] MEDS: Smz/Tmp Ds Tablet 1 TABLET PO (07:37)
[2019-09-27] MEDS: Insulin Lispro 100 UNIT/ML INSULN.PEN SC ×3 (07:37→17:14)
[2019-09-27] MEDS: predniSONE 5 MG Tablet PO (07:38)
[2019-09-27] MEDS: Aspirin E.C. 81 MG Tablet PO (07:38)
[2019-09-27] MEDS: Ferrous Sulfate 325 MG Tablet PO (07:38)
[2019-09-27] MEDS: Lidocaine 5% Patch 1 PATCH TOPICAL (07:38)
[2019-09-27] MEDS: Carvedilol 25 MG Tablet PO ×2 (07:38→17:04)
[2019-09-27] MEDS: Ascorbic Acid 500 MG Tablet PO (07:39)
[2019-09-27] MEDS: traMADol 50 MG Tablet PO ×2 (07:39→13:56)
[2019-09-27 07:40] VITALS: PULSE 79
[2019-09-27] MEDS: hydrALAZINE 25 MG Tablet PO ×2 (07:40→20:40)
[2019-09-27] MEDS: ENTECAVIR 0.5 MG TABLET PO (07:41)
[2019-09-27] MEDS: DIFLUPREDNATE 5 ML DROPS 1 DRP OP ×2 (07:41→20:43)
[2019-09-27] MEDS: Mycophenolate Mofetil 250 MG Capsule 750 MG PO ×2 (07:41→20:42)
[2019-09-27] MEDS: Tacrolimus Anhydrous 1 MG Capsule 8 MG PO (07:42)
[2019-09-27] MEDS: Venlafaxine XR 75 MG Capsule PO (07:42)
[2019-09-27] MEDS: NIFEdipine 60 MG Tablet PO (07:42)
[2019-09-27] MEDS: Pantoprazole Sodium 40 MG Tablet PO (07:43)
[2019-09-27] MEDS: Glucerna Shake 120 ML LIQUID PO ×3 (07:43→17:04)
[2019-09-27 08:33] VITALS: BP 143/84; PULSE 79; RESP 18; TEMP 36.5; O2SAT 95
[2019-09-27] MEDS: 0.9% Saline Lock 10 ML Syringe IV (09:23)
[2019-09-27 11:15] LABS: Bedside Glucose 222 mg/dL (70-110)
--- NOTE | 2019-09-27 13:35 | RAD_ITS ---
STUDY: X-RAY - RIGHT FEMUR REASON FOR STUDY: Female, 69 years old. POST SURGERY, PAIN TECHNIQUE: 4 view(s) of the femur. COMPARISON: None. FINDINGS: The patient is status post intramedullary tram and side compressive screw fixation of the intertrochanteric fracture. There is good alignment. Vascular calcification. RAD/Femur Min 2 Views IMPRESSION: Status post ORIF of the right intertrochanteric fracture. There is good alignment. Vascular calcification. Electronically Signed: Jey Jean-Baptiste, at 15:15 EDT , Service support ,
--- NOTE | 2019-09-27 13:55 | NURSING ---
wound photo: right heel
[2019-09-27 17:11] LABS: Bedside Glucose 268 mg/dL (70-110)
[2019-09-27 19:24] VITALS: BP 120/69; PULSE 83; RESP 16; TEMP 36.4; O2SAT 94
[2019-09-27 20:40] VITALS: PULSE 83
[2019-09-27] MEDS: Senna/Docusate Sodium 1 Tablet 2 TABLET PO (20:43)
[2019-09-27 20:50] LABS: Bedside Glucose 249 mg/dL (70-110)
[2019-09-28 06:26] LABS: Bedside Glucose 194 mg/dL (70-110)
[2019-09-28] MEDS: Enoxaparin 40 MG/0.4 ML Syringe SC (06:32)
[2019-09-28] MEDS: Levothyroxine 50 MCG Tablet PO (06:33)
[2019-09-28] MEDS: Acetaminophen 500 MG Tablet 1000 MG PO ×3 (06:33→21:08)
[2019-09-28] MEDS: Ondansetron ODT 4 MG Tablet PO (06:55)
[2019-09-28 07:57] VITALS: BP 150/80; PULSE 83; RESP 18; TEMP 36; O2SAT 94
[2019-09-28] MEDS: Insulin Lispro 100 UNIT/ML INSULN.PEN SC ×4 (08:18→16:40)
[2019-09-28] MEDS: traMADol 50 MG Tablet PO ×2 (08:21→21:56)
[2019-09-28] MEDS: Mycophenolate Mofetil 250 MG Capsule 750 MG PO ×2 (09:24→21:06)
[2019-09-28] MEDS: Tacrolimus Anhydrous 1 MG Capsule 8 MG PO (09:24)
[2019-09-28] MEDS: Pantoprazole Sodium 40 MG Tablet PO (09:24)
[2019-09-28 09:25] VITALS: BP 150/80; PULSE 83
[2019-09-28] MEDS: hydrALAZINE 25 MG Tablet PO ×2 (09:25→21:09)
[2019-09-28] MEDS: Aspirin E.C. 81 MG Tablet PO (09:25)
[2019-09-28] MEDS: Smz/Tmp Ds Tablet 1 TABLET PO (09:25)
[2019-09-28] MEDS: Carvedilol 25 MG Tablet PO ×2 (09:25→16:40)
[2019-09-28] MEDS: Ferrous Sulfate 325 MG Tablet PO (09:25)
[2019-09-28] MEDS: Venlafaxine XR 75 MG Capsule PO (09:26)
[2019-09-28] MEDS: Ascorbic Acid 500 MG Tablet PO (09:26)
[2019-09-28] MEDS: predniSONE 5 MG Tablet PO (09:26)
[2019-09-28] MEDS: Docusate Sodium 100 MG Capsule 200 MG PO (09:26)
[2019-09-28] MEDS: NIFEdipine 60 MG Tablet PO (09:26)
[2019-09-28] MEDS: Lidocaine 5% Patch 1 PATCH TOPICAL (09:27)
[2019-09-28] MEDS: Senna/Docusate Sodium 1 Tablet 2 TABLET PO (09:27)
[2019-09-28] MEDS: DIFLUPREDNATE 5 ML DROPS 1 DRP OP ×2 (09:27→21:07)
[2019-09-28] MEDS: Glucerna Shake 120 ML LIQUID PO ×2 (09:30→16:40)
[2019-09-28] MEDS: 0.9% Saline Lock 10 ML Syringe IV (11:14)
[2019-09-28 11:26] LABS: Bedside Glucose 257 mg/dL (70-110)
[2019-09-28 16:46] LABS: Bedside Glucose 276 mg/dL (70-110)
[2019-09-28 19:28] VITALS: BP 144/74; PULSE 80; RESP 18; TEMP 36.7; O2SAT 94
[2019-09-28 20:51] LABS: Bedside Glucose 293 mg/dL (70-110)
[2019-09-28] MEDS: prednisoLONE eye drops (1 mL) 1 DROP OPTH.BTL 1 DRP RIGHT EYE (21:07)
[2019-09-28 21:09] VITALS: PULSE 76
[2019-09-29] MEDS: Enoxaparin 40 MG/0.4 ML Syringe SC (05:08)
[2019-09-29] MEDS: Ondansetron ODT 4 MG Tablet PO ×2 (05:08→18:46)
[2019-09-29] MEDS: Levothyroxine 50 MCG Tablet PO (06:41)
[2019-09-29] MEDS: Acetaminophen 500 MG Tablet 1000 MG PO ×3 (06:41→21:07)
[2019-09-29 06:45] LABS: Bedside Glucose 181 mg/dL (70-110)
[2019-09-29 07:24] VITALS: BP 154/77; PULSE 78; RESP 18; TEMP 36.6; O2SAT 94
[2019-09-29 08:17] VITALS: BP 154/77; PULSE 78
[2019-09-29] MEDS: DIFLUPREDNATE 5 ML DROPS 1 DRP OP ×2 (08:17→21:06)
[2019-09-29] MEDS: Tacrolimus Anhydrous 1 MG Capsule 8 MG PO (08:17)
[2019-09-29] MEDS: hydrALAZINE 25 MG Tablet PO ×2 (08:17→21:05)
[2019-09-29] MEDS: Smz/Tmp Ds Tablet 1 TABLET PO (08:17)
[2019-09-29] MEDS: Mycophenolate Mofetil 250 MG Capsule 750 MG PO ×2 (08:18→21:06)
[2019-09-29] MEDS: Aspirin E.C. 81 MG Tablet PO (08:19)
[2019-09-29] MEDS: Carvedilol 25 MG Tablet PO ×2 (08:19→16:06)
[2019-09-29] MEDS: Ascorbic Acid 500 MG Tablet PO (08:19)
[2019-09-29] MEDS: glipiZIDE 10 MG Tablet 15 MG PO (08:19)
[2019-09-29] MEDS: Venlafaxine XR 75 MG Capsule PO (08:19)
[2019-09-29] MEDS: Ferrous Sulfate 325 MG Tablet PO (08:19)
[2019-09-29] MEDS: predniSONE 5 MG Tablet PO (08:19)
[2019-09-29] MEDS: NIFEdipine 60 MG Tablet PO (08:19)
[2019-09-29] MEDS: traMADol 50 MG Tablet PO ×2 (08:19→16:05)
[2019-09-29] MEDS: Glucerna Shake 120 ML LIQUID PO ×3 (08:20→16:05)
[2019-09-29] MEDS: Insulin Lispro 100 UNIT/ML INSULN.PEN SC ×3 (08:20→16:10)
[2019-09-29] MEDS: Lidocaine 5% Patch 1 PATCH TOPICAL (08:20)
[2019-09-29] MEDS: Pantoprazole Sodium 40 MG Tablet PO (08:20)
[2019-09-29 12:16] LABS: Bedside Glucose 181 mg/dL (70-110)
[2019-09-29 16:31] LABS: Bedside Glucose 218 mg/dL (70-110)
[2019-09-29 19:21] VITALS: BP 162/67; PULSE 76; RESP 16; TEMP 36.6; O2SAT 94
[2019-09-29 21:05] VITALS: PULSE 74
[2019-09-29 21:36] LABS: Bedside Glucose 220 mg/dL (70-110)
[2019-09-30 05:52] LABS: Hematocrit 33.1 % (37-47); Hemoglobin 10.7 g/dL (12.0-15.0); Mean Corp Hgb Conc 32.3 g/dL (32-36); Mean Corpuscular Hgb 30.5 pg (27.0-32.0); Mean Corpuscular Volume 94.3 fL (81-99); Mean Platelet Vol. 8.4 fl (6.2-12.0); POSITIVE COUNT YES; POSITIVE DIFFERENTIAL YES; POSITIVE MORPHOLOGY YES; Platelet Count 275 K/mm3 (150-450); RBC Distribution Width CV 13.7 % (11.6-14.6); RBC Distribution Width SD 46.7 fl (35.1-43.9); Red Blood Count 3.51 M/mm3 (4.2-5.4); White Blood Count 4.2 K/mm3 (4.4-11.0)
[2019-09-30 05:53] LABS: Differential Indicated MANUAL DIFF
[2019-09-30 06:13] LABS: Neutrophil-Band 5 % (0-5); Neutrophil-Segmented 83 % (47-70); Total Cells Counted 100 (MANUAL DIFF)
[2019-09-30] MEDS: Levothyroxine 50 MCG Tablet PO (06:13)
[2019-09-30] MEDS: Enoxaparin 40 MG/0.4 ML Syringe SC (06:13)
[2019-09-30 06:14] LABS: Absolute Lymphocyte Count 0.14 X10^3/uL (0.83-4.51); Absolute Neutrophil Count 3.7 X10^3/uL (2.0-7.7); Eosinophil 4 % (0-5); Lymphocyte 1 % (19-41); Lymphocyte # 0.14 X10^3/ul (4.0); Monocyte 7 % (0-10); Neutrophil # 3.69 X10^3/uL (2.7-7.7); Platelet Estimate ADEQUATE (ADEQ); Red Cell Morphology NORM C+C NORMAL (NORM C&C)
[2019-09-30] MEDS: Acetaminophen 500 MG Tablet 1000 MG PO ×3 (06:14→21:05)
[2019-09-30] MEDS: traMADol 50 MG Tablet PO ×3 (06:14→18:32)
[2019-09-30] MEDS: 0.9% Saline Lock 10 ML Syringe IV (06:17)
[2019-09-30 06:20] LABS: AST(SGOT) 36 U/L (15-37); Alanine Aminotransfer ALT/SGPT 39 U/L (13-56); Albumin, Serum 2.9 g/dL (3.2-5.0); Alkaline Phosphatase 223 U/L (45-117); Anion Gap 2 (5-15); BUN 12 mg/dL (7-18); BUN/Creat Ratio 16.4 RATIO (10-20); Calcium,Total 8.7 mg/dL (8.5-10.1); Chloride 103 mmol/L (98-107); Creatinine, Serum 0.73 mg/dL (0.55-1.02); EST Glomerular Filtration Rate 84 mL/min (>60); Est Glom Filt Rate - Afr Amer 102 mL/min (>60); Estimated Creatinine Clearance 54.32 ml/min; Glucose 136 mg/dL (74-106); Magnesium 1.7 mg/dL (1.6-2.6); Potassium 4.7 mmol/L (3.5-5.1); Protein, Total 5.9 g/dL (6.4-8.2); Sodium Level 134 mmol/L (136-145)
[2019-09-30 06:36] LABS: Bedside Glucose 147 mg/dL (70-110)
[2019-09-30] MEDS: Lidocaine 5% Patch 1 PATCH TOPICAL (08:07)
[2019-09-30] MEDS: Glucerna Shake 120 ML LIQUID PO ×2 (08:07→12:18)
[2019-09-30 08:08] VITALS: BP 149/75; PULSE 84
[2019-09-30] MEDS: hydrALAZINE 25 MG Tablet PO ×2 (08:08→21:04)
[2019-09-30] MEDS: DIFLUPREDNATE 5 ML DROPS 1 DRP OP ×2 (08:08→21:18)
[2019-09-30] MEDS: Pantoprazole Sodium 40 MG Tablet PO (08:08)
[2019-09-30] MEDS: ENTECAVIR 0.5 MG TABLET PO (08:08)
[2019-09-30] MEDS: predniSONE 5 MG Tablet PO (08:09)
[2019-09-30] MEDS: glipiZIDE 10 MG Tablet 15 MG PO (08:09)
[2019-09-30] MEDS: Venlafaxine XR 75 MG Capsule PO (08:09)
[2019-09-30] MEDS: Mycophenolate Mofetil 250 MG Capsule 750 MG PO ×2 (08:09→21:05)
[2019-09-30] MEDS: Tacrolimus Anhydrous 1 MG Capsule 8 MG PO (08:10)
[2019-09-30] MEDS: Smz/Tmp Ds Tablet 1 TABLET PO (08:10)
[2019-09-30] MEDS: Ferrous Sulfate 325 MG Tablet PO (08:10)
[2019-09-30] MEDS: Carvedilol 25 MG Tablet PO ×2 (08:10→16:33)
[2019-09-30] MEDS: Ascorbic Acid 500 MG Tablet PO (08:10)
[2019-09-30] MEDS: NIFEdipine 60 MG Tablet PO (08:10)
[2019-09-30] MEDS: Aspirin E.C. 81 MG Tablet PO (08:10)
[2019-09-30 08:16] VITALS: BP 136/65; PULSE 88; RESP 17; TEMP 36.5; O2SAT 94
--- NOTE | 2019-09-30 08:49 | PCM.PN.BLA ---
Progress Note Afebrile VSS-systolic blood pressures have generally been elevated. Diastolic blood pressures are within normal limits. Heart rate is within normal limits. Maintaining appropriate oxygen saturation on RA Oral intake is much improved. Discussed with nursing - no problems that need addressed Reviewed the PT/OT notes Medication list reviewed. BS record was reviewed. Even with the increase in the Glipizide to 15 mg in the AM she is still getting mealtime insulin, 1-4 units. All lab was personally reviewed. With increased oral intake her creatinine has improved and is 0.73 today, down from 1.04 at admission. BUN is 12 today. Hemoglobin is now 10.7, up from 6.5 at admission following transfusion of 2 units of packed red blood cells. ALT is increased at 223, up from 126 at admission. The WBC is mildly decreased but there is a left shift.....no fevers. MM are moist today Alert, oriented X 3 and in NAD Lungs - CTA with good air exchange HRRR abd - soft and NT with normal BS's no calf tenderness, less edema in the distal LE's today Impressions 1. Debility secondary to recent fall resulting in a right hip fracture 2. Diabetes mellitus type 2-patient would like to be on all oral agents however we have been unsuccessful at achieving this. Patient is agreeable to a consultation with Dr. Erwin Curiel from endocrinology to manage the blood sugars. 3. History of a renal transplant in May 2019 4. Acute blood loss anemia on chronic anemia-hemoglobin is stable following transfusion of 2 units of packed red blood cells at admission for symptomatic anemia with a hemoglobin of 6.5 5. Nausea/vomiting with oxycodone. Patient is tolerating tramadol now for pain with no nausea or vomiting. Continue therapy Consult Dr. Erwin Curiel STROKE Vital Signs/Narrative: Vital Signs Temp Pulse Resp BP Pulse Ox 09/30/19 08:16 97.7 F L 88 17 136/65 H 94 09/30/19 08:08 84 149/75 H Inpatient E&M: [id number] Subs Hosp L2
[2019-09-30 09:32] LABS: Erythrocyte Sedimentation Rate 44 mm/hr (0-30)
[2019-09-30 11:36] LABS: Bedside Glucose 195 mg/dL (70-110)
[2019-09-30] MEDS: Insulin Lispro 100 UNIT/ML INSULN.PEN SC ×2 (12:14→16:35)
[2019-09-30 12:16] LABS: Pathologist Review Reviewed
[2019-09-30 17:46] LABS: Bedside Glucose 174 mg/dL (70-110)
[2019-09-30 19:04] VITALS: BP 144/82; PULSE 86; RESP 16; TEMP 36.8; O2SAT 93
[2019-09-30 20:30] VITALS: PULSE 86; RESP 16; O2SAT 93
[2019-09-30 21:04] VITALS: BP 144/82; PULSE 86
[2019-09-30] MEDS: Senna/Docusate Sodium 1 Tablet 2 TABLET PO (21:08)
[2019-09-30] MEDS: prednisoLONE eye drops (1 mL) 1 DROP OPTH.BTL 1 DRP RIGHT EYE (21:17)
--- NOTE | 2019-09-30 21:39 | NURSING ---
pt declined to have blood sugar checked this hs , stating that her blood sugars were good today. pt did take insulin as ordered
[2019-10-01] MEDS: 0.9% Saline Lock 10 ML Syringe IV (06:38)
[2019-10-01] MEDS: Acetaminophen 500 MG Tablet 1000 MG PO ×3 (06:47→21:27)
[2019-10-01] MEDS: Levothyroxine 50 MCG Tablet PO (06:47)
[2019-10-01] MEDS: traMADol 50 MG Tablet PO ×3 (06:47→21:28)
--- NOTE | 2019-10-01 06:58 | NURSING ---
Dr Curiel to see pt this am and spoke with pt
[2019-10-01 07:01] LABS: Bedside Glucose 149 mg/dL (70-110)
[2019-10-01] MEDS: Enoxaparin 40 MG/0.4 ML Syringe SC (07:02)
--- NOTE | 2019-10-01 07:34 | CON.PCM_ITS ---
Problem List (1) Diabetes mellitus type 2 in obese Status: Chronic Reason for Consult History of Present Illness: The patient is a 69 year old F admitted s/p right femur fracure. She has longstanding history of type 2 diabetes mellitus. The patient states it went untreated for years until she was diagnosed 10 years ago. She took glipizide. She suffers from multiple complications including renal failure (s/p renal transplant May,), polyneuropathy and retinopathy. Post transplant, she was placed on basal insulin. She hopes to come off of the insulin. She is followed by [facility] transplant team. She states weight is stable and appetite is OK. In addition to recent right femur fracture she has history of right Charcot foot. She states she had a DEXA scan prior to transplant and was told that it was fine. Given recent fracture, bone health will be a priority. 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) Fibrocystic breast disease (Chronic) Acute on chronic anemia (Chronic) Osteoarthritis (Chronic) Type 2 diabetes mellitus with Charcot's joint of right foot (Chronic) Left carotid bruit (Chronic) GERD (gastroesophageal reflux disease) (Chronic) Depression (Chronic) Hyperlipidemia (Chronic) Hypertension (Chronic) Diabetes mellitus (Chronic) had a renal transplant in May of 2019 Edema (Chronic) BL LE's due to venous insufficiency Cataract (Chronic) Abnormal mammogram (Chronic) Myopia (Chronic) Anxiety (Chronic) Allergies amoxicillin Allergy (Verified 01/15/16 21:29) Unknown Home Medications: Ambulatory Orders Medication Instructions Recorded ALPRAZolam [Xanax] 0.5 mg PO BID PRN PRN #30 tablet 01/27/16 Atorvastatin Calcium [Lipitor] 80 mg PO QHS #30 tablet 01/27/16 Cholecalciferol (VIT D3) [Vitamin 4,000 unit PO DAILY@0800 #0 tablet 01/27/16 D3] Dextran 70/He-Cell [Tears 2 drop EACH EYE Q1H PRN PRN #0 01/27/16 [place]atur[place], Artificial Tears] bottle Fluticasone 0.05% [Flonase Nasal 1 spray NASAL BID #1 nasal.sry 01/27/16 [place]] Furosemide [Lasix] 40 mg PO BID@1000,1800 #60 tablet 01/27/16 Insulin Detemir [Levemir FlexPen] 10 units SC BID #1 insuln.pen 01/27/16 Ipratropium/Albuterol Sulfate 3 ml INHALATION Q6H PRN PRN #30 01/27/16 [Duoneb] ampul.neb Linagliptin [Tradjenta] 5 mg PO DAILY@0800 #30 tablet 01/27/16 Loratadine [Claritin] 10 mg PO DAILY #30 tablet 01/27/16 Paroxetine [Paxil] 20 mg PO DAILY@0800 #30 tablet 01/27/16 proMETHazine tablet [Phenergan 25 mg PO Q6H PRN PRN #30 tablet 01/27/16 tablet] traZODone [Desyrel] 50 mg PO QHS #30 tablet 01/27/16 Acetaminophen [Tylenol] 650 mg PO Q6H PRN PRN 09/23/19 Aspirin E.C. [Ecotrin] 81 mg PO DAILY@0800 09/23/19 Carvedilol [Coreg (Beta Soraya)] 25 mg PO BIDCM 09/23/19 Ferrous Sulfate 325 mg PO DAILY@0800 09/23/19 Bisacodyl [Dulcolax] 10 mg PO DAILY PRN 09/24/19 Lactobacillus Rhamnosus GG 1 cap PO BID 09/24/19 [Culturelle] Surgical History: - - Renal transplant May 2019. ORIF of the R hip on 09/13/19 at [facility]. Surgery on the R foot in the remote past for Charcots foot. 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 [employer]ING History: - - History of thickened endometrium Lives: Spouse/ Significant Other - Husbands name is Mannie Smoking Status: Never smoker Tobacco Use: Non-smoker Alcohol: Occasional Drugs: None - *Family History Maternal History Items: Diabetes, High Cholesterol, Heart Disease, Hypertension, Renal Disease Paternal History Items: High Cholesterol, Heart Disease, Hypertension, Stroke Sibling History Items: Asthma, Cancer, Diabetes, High Cholesterol, Heart Disease, Hypertension Review of Systems Constitutional: Denies: Chills, Fever, Weight Change Eyes: Reports: Blurred vision HEENT: Denies: Head Aches, Sinus Congestion, Sinus Drainage Cardiovascular: Denies: Chest Pain, Palpitations Respiratory: Denies: Cough, Shortness of breath at rest, Sputum production Gastrointestinal: Denies: Abdominal Pain, Nausea, Vomiting Genitourinary: Denies: Dysuria Neurological: Reports: Balance problems Psychiatric: Denies: Anxiety, Depression, Homicidal Ideations, Suicidal Ideations Endocrine: Denies: Heat/ Cold Intolerance Patient Problems: Active and Suspected Problems Closed intertrochanteric fracture of right femur (Acute) History of renal transplant (Acute) May of 2019 Scleritis (Acute) History of open reduction and internal fixation (ORIF) procedure (Acute) 09/13/[address] Bolivar Rankin at [facility] Atelectasis (Acute) - Physical Exam Vitals/I&O's: Vital Signs Temp Pulse Resp BP Pulse Ox 98.2 F 86 16 144/82 H 93 09/30/19 19:04 09/30/19 21:04 09/30/19 20:30 09/30/19 21:04 09/30/19 20:30 Oxygen Delivery Method Room Air Weight: 199 lb 8.293 oz Body Mass Index (BMI) 29.2 Intake and Output for Last 24 Hours 09/29/19 09/30/19 10/01/19 23:59 23:59 23:59 Intake Total 2180 / 2180 1120 / 1320 300 / 300 Output Total 1250 / 1250 600 / 1175 1775 / 1775 Balance 930 / 930 520 / 145 -1475 / -1475 General: Alert, Oriented x3, Cooperative, No apparent distress HEENT: Atraumatic, PERRLA Oral: Moist Mucosa Neck: Supple Lungs: Normal air movement, Tachypneic Cardiovascular: Regular rate Abdomen: Soft Psych/Mental Status: Normal Affect Laboratory Results 09/30/19 05:43: Diff Path Review Reviewed 09/30/19 05:43: ESR 44 H 09/30/19 05:43: C-React Prot Ext Range 12.50 H 09/30/19 11:28: POC Glucose 195 H 09/30/19 16:37: POC Glucose 174 H 10/01/19 06:46: POC Glucose 149 H Current Medications Acetaminophen (Tylenol) 1,000 mg PO Q8H DYLAN Last Admin: 10/01/19 06:47 Dose: 1,000 mg Documented by: Ascorbic Acid (Vitamin C) 500 mg PO DAILY@0800 [facility] Last Admin: 09/30/19 08:10 Dose: 500 mg Documented by: Aspirin (Ecotrin) 81 mg PO DAILY@0800 [facility] Last Admin: 09/30/19 08:10 Dose: 81 mg Documented by: Bisacodyl (Dulcolax) 10 mg RECTAL .PRN X 1 PRN PRN Reason: Constipation Bisacodyl (Dulcolax) 10 mg PO DAILY PRN PRN PRN Reason: Constipation Last Admin: 09/26/19 12:12 Dose: 10 mg Documented by: [facility] Last Admin: 09/30/19 16:33 Dose: 25 mg Documented by: Cholecalciferol (Vitamin D (25mcg)) [facility] Last Admin: 09/30/19 08:09 Dose: 1,000 unit Documented by: Dextrose (D50w Syringe) 0 gm IV X1 PRN; Protocol PRN Reason: Hypoglycemia Docusate Sodium (Colace) 200 mg PO DAILY [facility] Last Admin: 09/30/19 08:11 Dose: Not Given Documented by: Enoxaparin Sodium (Lovenox) 40 mg SC DAILY@0600 [facility] Stop: 10/07/19 08:01 Last Admin: 10/01/19 07:02 Dose: 40 mg Documented by: Ferrous Sulfate (Ferrous Sulfate) 325 mg PO DAILY@0800 [facility] Last Admin: 09/30/19 08:10 Dose: 325 mg Documented by: Glipizide (Glucotrol) 15 mg PO QAM@0800 [facility] Last Admin: 09/30/19 08:09 Dose: 15 mg Documented by: Glucagon () 1 mg IM .X1 PRN PRN Reason: Hypoglycemia Hydralazine HCl (Apresoline) 25 mg PO BID [facility] Last Admin: 09/30/19 21:04 Dose: 25 mg Documented by: Sodium Chloride () 500 mls @ 15 mls/hr IV PRN PRN PRN Reason: Blood Transfusion Last Infusion: 09/29/19 08:39 Dose: 0 mls/hr Documented by: Insulin Glargine (Lantus (Bkc)) 15 units SC QHS [facility] Last Admin: 09/30/19 21:20 Dose: 15 units Documented by: Insulin Human Lispro (Humalog Kwikpen (Bkc)) 0 unit SC TIDAC [facility]; Protocol Last Admin: 10/01/19 07:02 Dose: Not Given Documented by: Lactobacillus Acidophilus (Acidophilus) 1 tablet PO BID [facility] Last Admin: 09/30/19 21:05 Dose: 1 tablet Documented by: Levothyroxine Sodium (Synthroid) 50 mcg PO DAILY@0600 [facility] Last Admin: 10/01/19 06:47 Dose: 50 mcg Documented by: Lidocaine (Lidoderm Patch) 1 patch TOPICAL DAILY [facility]; Protocol Last Admin: 09/30/19 08:07 Dose: 1 patch Documented by: Magnesium Hydroxide (Milk Of Magnesia) 30 ml PO .PRN X 1 PRN PRN Reason: Constipation Last Admin: 09/26/19 06:00 Dose: 30 ml Documented by: Mycophenolate Mofetil (Cellcept) 750 mg PO BID [facility] Last Admin: 09/30/19 21:05 Dose: 750 mg Documented by: Nifedipine (Procardia Xl) 60 mg PO DAILY [facility] Last Admin: 09/30/19 08:10 Dose: 60 mg Documented by: Nutritional Formula (Lactose Free) (Glucerna Shake) 120 ml PO TIDCM [facility] Last Admin: 09/30/19 16:38 Dose: Not Given Documented by: Ondansetron HCl (Zofran Odt) 4 mg PO Q6H PRN PRN PRN Reason: NAUSEA/VOMITING Last Admin: 09/29/19 18:46 Dose: 4 mg Documented by: Pantoprazole Sodium (Protonix) 40 mg PO DAILY [facility] Last Admin: 09/30/19 08:08 Dose: 40 mg Documented by: Prednisolone Acetate (Pred Forte Eye Drops (1 Ml)) 1 drop RIGHT EYE QODAY@2200 [facility] Last Admin: 09/30/19 21:17 Dose: 1 drop Documented by: Prednisone () 5 mg PO DAILY@0800 [facility] Last Admin: 09/30/19 08:09 Dose: 5 mg Documented by: Senna/Docusate Sodium (Senokot-S, Raegan-Colace) 2 tablet PO BID [facility] Last Admin: 09/30/19 21:08 Dose: 1 tablet Documented by: Sitagliptin Phosphate (Januvia) 100 mg PO DAILY [facility] Sodium Chloride () 10 - 40 ml IV UD PRN PRN Reason: SALINE FLUSH Last Admin: 10/01/19 06:38 Dose: 10 ml Documented by: Tacrolimus (Prograf) 8 mg PO DAILY [facility] Last Admin: 09/30/19 08:10 Dose: 8 mg Documented by: Tramadol HCl (Ultram) 0 mg PO Q6H PRN PRN PRN Reason: Pain Score 4-5/10 Last Admin: 10/01/19 06:47 Dose: 50 mg Documented by: Trimethoprim/Sulfamethoxazole ([facility]actrim Ds) [facility] Last Admin: 09/30/19 08:10 Dose: 1 tablet Documented by: Venlafaxine HCl (Effexor Xr) 75 mg PO DAILY [facility] Last Admin: 09/30/19 08:09 Dose: 75 mg Documented by: Assessment/Plan All Active Problems Closed intertrochanteric fracture of right femur (Acute) History of renal transplant (Acute) Scleritis (Acute) History of open reduction and internal fixation (ORIF) procedure (Acute) Atelectasis (Acute) Shortness of breath (Resolved) Acute kidney injury (Resolved) Chronic kidney disease (Resolved) Congestive heart failure (Resolved) Iron deficiency anemia (Resolved) 1. Diabetes mellitus type 2 with s/p renal transplant, polyneuropathy. Medications commonly used post renal transplant include: Insulin, GARCIA, and DPP4I. Medications NOT traditionally used are: metformin, SGLT2 and GLP-1. The patient mentions that her [facility] doctor was going to place her on Ozempic, but I am not comfortable with that. Plan: Continue basal insulin and try to wean as able Continue glipizide. Add Emil 2. Patient will need reevaluated for her bone health. I encouraged her to follow up with her transplant team after discharge. Inpatient E&M: 76442 Init Hosp L2
[2019-10-01 07:50] VITALS: BP 160/70; PULSE 84; RESP 17; TEMP 36.8; O2SAT 94
[2019-10-01] MEDS: Lidocaine 5% Patch 1 PATCH TOPICAL (08:01)
[2019-10-01 08:02] VITALS: BP 160/70; PULSE 84
[2019-10-01] MEDS: DIFLUPREDNATE 5 ML DROPS 1 DRP OP ×2 (08:02→21:26)
[2019-10-01] MEDS: hydrALAZINE 25 MG Tablet PO ×2 (08:02→21:25)
[2019-10-01] MEDS: Tacrolimus Anhydrous 1 MG Capsule 8 MG PO (08:02)
[2019-10-01] MEDS: Mycophenolate Mofetil 250 MG Capsule 750 MG PO ×2 (08:02→21:26)
[2019-10-01] MEDS: Ascorbic Acid 500 MG Tablet PO (08:03)
[2019-10-01] MEDS: predniSONE 5 MG Tablet PO (08:03)
[2019-10-01] MEDS: NIFEdipine 60 MG Tablet PO (08:03)
[2019-10-01] MEDS: Aspirin E.C. 81 MG Tablet PO (08:04)
[2019-10-01] MEDS: Carvedilol 25 MG Tablet PO ×2 (08:04→16:51)
[2019-10-01] MEDS: Ferrous Sulfate 325 MG Tablet PO (08:04)
[2019-10-01] MEDS: Smz/Tmp Ds Tablet 1 TABLET PO (08:04)
[2019-10-01] MEDS: Pantoprazole Sodium 40 MG Tablet PO (08:04)
[2019-10-01] MEDS: glipiZIDE 10 MG Tablet 15 MG PO (08:04)
[2019-10-01] MEDS: Venlafaxine XR 75 MG Capsule PO (08:06)
[2019-10-01] MEDS: Ondansetron ODT 4 MG Tablet PO (08:46)
[2019-10-01] MEDS: LINAGLIPTIN 5 MG TABLET PO (09:38)
[2019-10-01] MEDS: Insulin Lispro 100 UNIT/ML INSULN.PEN SC ×2 (12:07→16:51)
[2019-10-01 12:31] LABS: Bedside Glucose 207 mg/dL (70-110)
--- NOTE | 2019-10-01 16:55 | NURSING ---
SL removed from right AC, leaking noted when flush attempted and slight redness at insertion site with catheter visible. Catheter intact when removed, scant bleeding, pt tolerated well.
[2019-10-01 16:56] LABS: Bedside Glucose 179 mg/dL (70-110)
[2019-10-01 21:10] VITALS: BP 146/63; PULSE 88; RESP 16; TEMP 36.7; O2SAT 97
[2019-10-01 21:25] VITALS: BP 146/63; PULSE 88
[2019-10-01] MEDS: Senna/Docusate Sodium 1 Tablet 2 TABLET PO (21:25)
[2019-10-01 22:16] LABS: Bedside Glucose 314 mg/dL (70-110)
[2019-10-02] MEDS: Enoxaparin 40 MG/0.4 ML Syringe SC (06:31)
[2019-10-02] MEDS: Acetaminophen 500 MG Tablet 1000 MG PO ×3 (06:32→21:04)
[2019-10-02] MEDS: Levothyroxine 50 MCG Tablet PO (06:32)
[2019-10-02 06:56] LABS: Bedside Glucose 127 mg/dL (70-110)
[2019-10-02 07:33] VITALS: PULSE 70
[2019-10-02] MEDS: hydrALAZINE 25 MG Tablet PO ×2 (07:33→21:02)
[2019-10-02] MEDS: Pantoprazole Sodium 40 MG Tablet PO (07:33)
[2019-10-02] MEDS: Aspirin E.C. 81 MG Tablet PO (07:33)
[2019-10-02] MEDS: Venlafaxine XR 75 MG Capsule PO (07:33)
[2019-10-02] MEDS: glipiZIDE 10 MG Tablet 15 MG PO (07:34)
[2019-10-02] MEDS: Carvedilol 25 MG Tablet PO ×2 (07:35→16:55)
[2019-10-02] MEDS: Smz/Tmp Ds Tablet 1 TABLET PO (07:35)
[2019-10-02] MEDS: Ferrous Sulfate 325 MG Tablet PO (07:36)
[2019-10-02] MEDS: traMADol 50 MG Tablet PO ×3 (07:36→21:05)
[2019-10-02] MEDS: Ascorbic Acid 500 MG Tablet PO (07:37)
[2019-10-02] MEDS: predniSONE 5 MG Tablet PO (07:37)
[2019-10-02] MEDS: NIFEdipine 60 MG Tablet PO (07:39)
[2019-10-02] MEDS: LINAGLIPTIN 5 MG TABLET PO (07:40)
[2019-10-02] MEDS: Senna/Docusate Sodium 1 Tablet 2 TABLET PO ×2 (07:40→21:04)
[2019-10-02] MEDS: Tacrolimus Anhydrous 1 MG Capsule 8 MG PO (07:41)
[2019-10-02] MEDS: Mycophenolate Mofetil 250 MG Capsule 750 MG PO ×2 (08:55→21:03)
[2019-10-02] MEDS: Ondansetron ODT 4 MG Tablet PO (08:55)
[2019-10-02] MEDS: DIFLUPREDNATE 5 ML DROPS 1 DRP OP ×2 (09:00→21:03)
[2019-10-02 09:15] VITALS: BP 140/64; PULSE 81; RESP 17; TEMP 36.7; O2SAT 98
[2019-10-02] MEDS: Lidocaine 5% Patch 1 PATCH TOPICAL (11:49)
[2019-10-02] MEDS: Insulin Lispro 100 UNIT/ML INSULN.PEN SC ×2 (11:57→16:57)
[2019-10-02] MEDS: Glucerna Shake 120 ML LIQUID PO ×2 (11:58→16:59)
[2019-10-02 12:05] LABS: Bedside Glucose 179 mg/dL (70-110)
--- NOTE | 2019-10-02 13:42 | NURSING ---
wound photo: right heel
--- NOTE | 2019-10-02 15:01 | PN_ITS ---
Progress Note Afebrile since admission. VSS-blood pressure this a.m. was better at 140/64. Maintaining appropriate oxygen saturation on RA Oral intake is improving and the intake on 10/01/2019 was 1860. Excellent urine output Good bowel function. Discussed with nursing - no problems that need addressed Reviewed the PT/OT notes Medication list reviewed. She was seen by Dr. Curiel yesterday and started on Januvia. The fasting blood sugar today was 127 and the lunchtime sugar was 179. I spoke with Jesus on the transplant team at the [facility] yesterday and he gave me the go ahead to use the arthritic pain compound for pain relief. Having R lateral hip pain. Sleeping good at night and appetite has improved. Denies dysuria, cough, shortness of breath, chest pain, calf pain. Alert, oriented x3, no apparent distress, sitting in the recliner at the bedside Lungs-clear to auscultation with good air exchange Heart-regular rate and rhythm, no rub, no gallop Abdomen-soft, nondistended, normal bowel sounds, no guarding with palpation especially of the suprapubic area Improving peripheral edema No rashes, no skin breakdown, incision is intact with no anurag-incisional erythema or discharge Impressions 1. Debility secondary to recent fall resulting in a right hip fracture with ORIF of the right hip done at [facility] 2. Diabetes mellitus type 2-patient is considering following up with Dr. Curiel post discharge. Appreciate Dr. Curiel's input. 3. History of renal transplant in May 2019. Renal transplant team is okay with adding arthritic compound cream to her pain regimen 4. Acute blood loss anemia on chronic anemia Continue therapy Add compounded arthritic formula cream to the right hip 2-3 times daily for pain control Inpatient E&M: 08068 Subs Hosp L2
[2019-10-02 17:06] LABS: Bedside Glucose 195 mg/dL (70-110)
[2019-10-02 21:02] VITALS: PULSE 91
[2019-10-02] MEDS: Arthritis Pain Compound 60 CLICK TUBE TOPICAL (21:03)
[2019-10-02] MEDS: prednisoLONE eye drops (1 mL) 1 DROP OPTH.BTL 1 DRP RIGHT EYE (21:03)
[2019-10-02 21:06] LABS: Bedside Glucose 213 mg/dL (70-110)
[2019-10-02 22:00] VITALS: BP 141/88; PULSE 91; RESP 16; TEMP 36.8; O2SAT 16
[2019-10-03] MEDS: Acetaminophen 500 MG Tablet 1000 MG PO ×3 (05:15→23:13)
[2019-10-03] MEDS: Enoxaparin 40 MG/0.4 ML Syringe SC (05:15)
[2019-10-03] MEDS: Levothyroxine 50 MCG Tablet PO (05:15)
[2019-10-03 07:16] LABS: Bedside Glucose 132 mg/dL (70-110)
[2019-10-03] MEDS: traMADol 50 MG Tablet PO ×3 (07:47→23:34)
[2019-10-03] MEDS: Carvedilol 25 MG Tablet PO ×2 (07:49→16:28)
[2019-10-03] MEDS: Smz/Tmp Ds Tablet 1 TABLET PO (07:49)
[2019-10-03] MEDS: Aspirin E.C. 81 MG Tablet PO (07:49)
[2019-10-03] MEDS: Ferrous Sulfate 325 MG Tablet PO (07:50)
[2019-10-03] MEDS: glipiZIDE 10 MG Tablet 15 MG PO (07:50)
[2019-10-03] MEDS: predniSONE 5 MG Tablet PO (07:52)
[2019-10-03] MEDS: Ascorbic Acid 500 MG Tablet PO (07:52)
[2019-10-03 07:53] VITALS: PULSE 67
[2019-10-03] MEDS: hydrALAZINE 25 MG Tablet PO ×2 (07:53→23:33)
[2019-10-03] MEDS: ENTECAVIR 0.5 MG TABLET PO (07:54)
[2019-10-03] MEDS: Arthritis Pain Compound 60 CLICK TUBE TOPICAL ×2 (07:54→23:17)
[2019-10-03] MEDS: DIFLUPREDNATE 5 ML DROPS 1 DRP OP ×2 (07:55→23:16)
[2019-10-03] MEDS: Mycophenolate Mofetil 250 MG Capsule 750 MG PO ×2 (07:55→23:16)
[2019-10-03] MEDS: NIFEdipine 60 MG Tablet PO (07:56)
[2019-10-03] MEDS: Lidocaine 5% Patch 1 PATCH TOPICAL (07:56)
[2019-10-03] MEDS: Tacrolimus Anhydrous 1 MG Capsule 8 MG PO (07:56)
[2019-10-03] MEDS: Venlafaxine XR 75 MG Capsule PO (07:56)
[2019-10-03] MEDS: LINAGLIPTIN 5 MG TABLET PO (07:57)
[2019-10-03] MEDS: Pantoprazole Sodium 40 MG Tablet PO (07:57)
[2019-10-03 08:03] VITALS: BP 151/77; PULSE 80; RESP 16; TEMP 36.2; O2SAT 94
[2019-10-03] MEDS: Insulin Lispro 100 UNIT/ML INSULN.PEN SC ×2 (11:48→16:28)
[2019-10-03 11:55] LABS: Bedside Glucose 170 mg/dL (70-110)
--- NOTE | 2019-10-03 12:53 | PCM.PN.BLA ---
Progress Note Maria De Jesus was seen on team rounds today. No family was present. Afebrile VSS - systolic BP is very mildly elevated. Maintaining appropriate oxygen saturation on RA Oral intake is improved Discussed with nursing - no problems that need addressed Reviewed the PT/OT notes. She did stairs yesterday with Mallorie. She ambulated to the BR today and she will start using the BR during the day and the BSC only at night. Nursing will walk with her to the bathroom. She was able to don her pants today with the aid of the operations agent. Medication list reviewed. BS record was reviewed. The BS's look better....she still is requiring 2 units of Humalog with lunch and supper. No hypoglycemia. Januvia was added to her drug regimen yesterday by Dr. Curiel. Pt is considering following up with Dr. Curiel post DC. The compounded cream is helping with pain control and we are discontinuing the Lidocaine patch Alert, NAD Lungs - CTA HRRR abd - soft and NT no calf pain. Impressions 1. Debility secondary to recent fall resulting in a right hip fracture with ORIF of the right hip done at [facility] 2. Diabetes mellitus type 2-patient is considering following up with Dr. Curiel post discharge. Appreciate Dr. Curiel's input. 3. History of renal transplant in May 2019. Renal transplant team is okay with adding arthritic compound cream to her pain regimen 4. Acute blood loss anemia on chronic anemia BMP, CBC, Mag and a Tacrolimus level on Monday. The Tacrolimus level drawn this Monday is still pending. continue therapy Inpatient E&M: 67804 Subs Hosp L2
[2019-10-03 16:36] LABS: Bedside Glucose 213 mg/dL (70-110)
--- NOTE | 2019-10-03 17:07 | CASEMGMT ---
Social Work IDT met with patient for Team meeting. Discussed patient's progress in therapy. Pt is min for LE dressing, min for bathing, set up for UE dressing and grooming, min for toileting, CGA for transfers. Pt is min to mod for sit to stands, ambulating 80 ft with FWW at CGA, completed 3 small steps with 2 HR at min to mod assist. Pt progressing well. The goal is for pt to return home with . DC date 10/09. Will f/u next week to finalize DC plans. Will continue to follow. Huong Wing, AUTO DRIVER GLASS UNLOADING EQUIPMENT TENDER
[2019-10-03 19:39] VITALS: BP 156/72; PULSE 86; RESP 18; TEMP 36.6; O2SAT 98
[2019-10-03] MEDS: Senna/Docusate Sodium 1 Tablet 2 TABLET PO (23:14)
[2019-10-03 23:33] VITALS: BP 140/73; PULSE 87
[2019-10-04] MEDS: Acetaminophen 500 MG Tablet 1000 MG PO ×3 (06:35→21:04)
[2019-10-04] MEDS: Levothyroxine 50 MCG Tablet PO (06:36)
[2019-10-04] MEDS: Enoxaparin 40 MG/0.4 ML Syringe SC (06:36)
[2019-10-04 06:45] LABS: Bedside Glucose 128 mg/dL (70-110)
[2019-10-04 07:30] VITALS: BP 135/65; PULSE 84; RESP 16; TEMP 36.7; O2SAT 96
[2019-10-04] MEDS: Senna/Docusate Sodium 1 Tablet 2 TABLET PO ×2 (07:32→21:03)
[2019-10-04] MEDS: Smz/Tmp Ds Tablet 1 TABLET PO (07:32)
[2019-10-04] MEDS: Carvedilol 25 MG Tablet PO ×2 (07:32→16:42)
[2019-10-04] MEDS: glipiZIDE 10 MG Tablet 15 MG PO (07:32)
[2019-10-04] MEDS: traMADol 50 MG Tablet PO ×3 (07:33→21:07)
[2019-10-04] MEDS: Aspirin E.C. 81 MG Tablet PO (07:33)
[2019-10-04] MEDS: NIFEdipine 60 MG Tablet PO (07:33)
[2019-10-04] MEDS: Ascorbic Acid 500 MG Tablet PO (07:33)
[2019-10-04] MEDS: Ferrous Sulfate 325 MG Tablet PO (07:34)
[2019-10-04] MEDS: Pantoprazole Sodium 40 MG Tablet PO (07:34)
[2019-10-04] MEDS: Docusate Sodium 100 MG Capsule 200 MG PO (07:34)
[2019-10-04 07:35] VITALS: PULSE 84
[2019-10-04] MEDS: predniSONE 5 MG Tablet PO (07:35)
[2019-10-04] MEDS: hydrALAZINE 25 MG Tablet PO ×2 (07:35→21:01)
[2019-10-04] MEDS: DIFLUPREDNATE 5 ML DROPS 1 DRP OP ×2 (07:36→21:02)
[2019-10-04] MEDS: Venlafaxine XR 75 MG Capsule PO (07:36)
[2019-10-04] MEDS: Tacrolimus Anhydrous 1 MG Capsule 8 MG PO (07:37)
[2019-10-04] MEDS: Arthritis Pain Compound 60 CLICK TUBE TOPICAL ×2 (07:41→21:01)
[2019-10-04] MEDS: LINAGLIPTIN 5 MG TABLET PO (07:41)
[2019-10-04] MEDS: Mycophenolate Mofetil 250 MG Capsule 750 MG PO ×2 (09:03→21:01)
[2019-10-04 11:36] LABS: Bedside Glucose 155 mg/dL (70-110)
[2019-10-04] MEDS: Glucerna Shake 120 ML LIQUID PO ×2 (11:59→16:42)
[2019-10-04] MEDS: Insulin Lispro 100 UNIT/ML INSULN.PEN SC ×2 (12:00→16:45)
[2019-10-04 16:50] LABS: Bedside Glucose 221 mg/dL (70-110)
--- NOTE | 2019-10-04 17:51 | PCM.PN.BLA ---
Progress Note Afebrile Vital signs are stable -would like to see the systolic under 130 given the fact that she recently had a renal transplant however the systolic may be mildly increased presently secondary to pain. Will defer treatment to her primary care physician or the renal transplant team. It is only mildly elevated. Maintaining appropriate oxygen saturation on room air Oral intake has improved significantly No problems per nursing Reviewed the PT/OT notes. Reviewed the blood sugar record and the blood sugars have come down significantly. She is only really requiring Humalog with supper. Only recently started on Januvia in addition to glyburide. She is also on Lantus 22 units subcu nightly. Maria De Jesus states that the arthritic compounded cream being applied to the right hip has helped with pain control. We were able to discontinue the lidocaine patch. She is also on scheduled Tylenol and as needed tramadol for pain relief. She is taking 50 mg of tramadol 3 times daily for pain. She denies chest pain, shortness of breath, calf pain, nausea, dysuria. The tacrolimus level is 5 which is within therapeutic levels. Alert and oriented x3, pleasant, no apparent distress Lungs-clear to auscultation Heart-regular rate and rhythm, no gallop Abdomen-soft, nontender, nondistended, no guarding with palpation Edema in the distal lower extremities has decreased significantly since admission and her weight has decreased 18 pounds secondary to water weight loss. Impressions 1. Debility secondary to recent fall resulting in right hip fracture with ORIF on 09/13/2019. 2. Renal transplant in May 2019 3. Diabetes mellitus type 2 4. Hyponatremia 5. Acute blood loss anemia-stable following transfusion of 2 units of packed red blood cells Continue therapy Increase the compounded arthritic cream to 3 times daily Continue tramadol as needed and scheduled Tylenol Recheck lab on Monday Inpatient E&M: [id number] Subs Hosp L2
[2019-10-04 19:48] VITALS: BP 149/80; PULSE 80; RESP 17; TEMP 36.3; O2SAT 96
[2019-10-04 21:01] VITALS: PULSE 73
[2019-10-04] MEDS: prednisoLONE eye drops (1 mL) 1 DROP OPTH.BTL 1 DRP RIGHT EYE (21:02)
--- NOTE | 2019-10-04 21:13 | NURSING ---
pt refuses hs accu check at this time. pt still requests hs dose of lantus even though accucheck was refused. will continue to monitor for signs and symptoms of hypoglycemia.
[2019-10-05] MEDS: Enoxaparin 40 MG/0.4 ML Syringe SC (05:33)
[2019-10-05] MEDS: Levothyroxine 50 MCG Tablet PO (05:33)
[2019-10-05] MEDS: Acetaminophen 500 MG Tablet 1000 MG PO ×3 (05:34→21:25)
[2019-10-05 06:46] LABS: Bedside Glucose 137 mg/dL (70-110)
[2019-10-05 07:48] VITALS: BP 136/63; PULSE 87; RESP 16; TEMP 36.3; O2SAT 97
[2019-10-05] MEDS: glipiZIDE 10 MG Tablet 15 MG PO (07:59)
[2019-10-05] MEDS: Carvedilol 25 MG Tablet PO ×2 (07:59→16:27)
[2019-10-05] MEDS: Pantoprazole Sodium 40 MG Tablet PO (07:59)
[2019-10-05] MEDS: Aspirin E.C. 81 MG Tablet PO (07:59)
[2019-10-05] MEDS: NIFEdipine 60 MG Tablet PO (07:59)
[2019-10-05] MEDS: predniSONE 5 MG Tablet PO (07:59)
[2019-10-05] MEDS: LINAGLIPTIN 5 MG TABLET PO (07:59)
[2019-10-05] MEDS: traMADol 50 MG Tablet PO ×3 (08:00→22:08)
[2019-10-05] MEDS: Ferrous Sulfate 325 MG Tablet PO (08:00)
[2019-10-05] MEDS: Tacrolimus Anhydrous 1 MG Capsule 8 MG PO (08:01)
[2019-10-05] MEDS: Glucerna Shake 120 ML LIQUID PO ×3 (08:03→16:29)
[2019-10-05] MEDS: Smz/Tmp Ds Tablet 1 TABLET PO (08:03)
[2019-10-05 08:05] VITALS: PULSE 87
[2019-10-05] MEDS: hydrALAZINE 25 MG Tablet PO ×2 (08:05→21:27)
[2019-10-05] MEDS: Ascorbic Acid 500 MG Tablet PO (08:05)
[2019-10-05] MEDS: DIFLUPREDNATE 5 ML DROPS 1 DRP OP ×2 (08:06→21:26)
[2019-10-05] MEDS: Senna/Docusate Sodium 1 Tablet 2 TABLET PO (08:07)
[2019-10-05] MEDS: Venlafaxine XR 75 MG Capsule PO (08:07)
[2019-10-05] MEDS: Mycophenolate Mofetil 250 MG Capsule 750 MG PO ×2 (10:09→21:26)
[2019-10-05] MEDS: Arthritis Pain Compound 60 CLICK TUBE TOPICAL ×2 (10:09→21:26)
[2019-10-05 11:11] LABS: Bedside Glucose 179 mg/dL (70-110)
[2019-10-05] MEDS: Insulin Lispro 100 UNIT/ML INSULN.PEN SC ×2 (13:07→16:29)
[2019-10-05 16:35] LABS: Bedside Glucose 203 mg/dL (70-110)
[2019-10-05 19:42] VITALS: BP 147/65; PULSE 87; RESP 16; TEMP 36.6; O2SAT 96
[2019-10-05 21:21] VITALS: BP 134/62; PULSE 83
[2019-10-05 21:27] VITALS: BP 134/62; PULSE 83
[2019-10-05 21:45] LABS: Bedside Glucose 216 mg/dL (70-110)
[2019-10-06] MEDS: Acetaminophen 500 MG Tablet 1000 MG PO ×3 (05:46→19:54)
[2019-10-06] MEDS: Levothyroxine 50 MCG Tablet PO (05:47)
[2019-10-06] MEDS: Enoxaparin 40 MG/0.4 ML Syringe SC (05:47)
[2019-10-06 06:45] LABS: Bedside Glucose 78 mg/dL (70-110)
[2019-10-06 07:24] VITALS: PULSE 70
[2019-10-06] MEDS: hydrALAZINE 25 MG Tablet PO ×2 (07:24→19:49)
[2019-10-06] MEDS: Aspirin E.C. 81 MG Tablet PO (07:24)
[2019-10-06] MEDS: Smz/Tmp Ds Tablet 1 TABLET PO (07:24)
[2019-10-06] MEDS: Ascorbic Acid 500 MG Tablet PO (07:24)
[2019-10-06] MEDS: Carvedilol 25 MG Tablet PO ×2 (07:25→16:58)
[2019-10-06] MEDS: LINAGLIPTIN 5 MG TABLET PO (07:25)
[2019-10-06] MEDS: Venlafaxine XR 75 MG Capsule PO (07:25)
[2019-10-06] MEDS: predniSONE 5 MG Tablet PO (07:25)
[2019-10-06] MEDS: Pantoprazole Sodium 40 MG Tablet PO (07:25)
[2019-10-06] MEDS: glipiZIDE 10 MG Tablet 15 MG PO (07:27)
[2019-10-06] MEDS: Tacrolimus Anhydrous 1 MG Capsule 8 MG PO (07:28)
[2019-10-06] MEDS: Ferrous Sulfate 325 MG Tablet PO (07:32)
[2019-10-06 07:33] VITALS: BP 150/68; PULSE 76; RESP 16; TEMP 36.6; O2SAT 98
[2019-10-06] MEDS: NIFEdipine 60 MG Tablet PO (07:33)
[2019-10-06] MEDS: Senna/Docusate Sodium 1 Tablet 2 TABLET PO ×2 (07:34→19:56)
[2019-10-06] MEDS: traMADol 50 MG Tablet PO ×3 (07:36→21:22)
[2019-10-06] MEDS: ENTECAVIR 0.5 MG TABLET PO (07:57)
[2019-10-06] MEDS: Mycophenolate Mofetil 250 MG Capsule 750 MG PO ×2 (10:32→19:52)
[2019-10-06] MEDS: DIFLUPREDNATE 5 ML DROPS 1 DRP OP ×2 (10:33→19:53)
[2019-10-06] MEDS: Glucerna Shake 120 ML LIQUID PO ×2 (12:05→16:58)
[2019-10-06] MEDS: Arthritis Pain Compound 60 CLICK TUBE TOPICAL ×2 (12:05→19:49)
[2019-10-06 12:20] LABS: Bedside Glucose 120 mg/dL (70-110)
[2019-10-06] MEDS: Insulin Lispro 100 UNIT/ML INSULN.PEN SC (16:57)
[2019-10-06 17:00] LABS: Bedside Glucose 211 mg/dL (70-110)
[2019-10-06 19:26] VITALS: BP 139/70; PULSE 90; RESP 16; TEMP 36.6; O2SAT 98
[2019-10-06 19:49] VITALS: PULSE 90
[2019-10-06] MEDS: prednisoLONE eye drops (1 mL) 1 DROP OPTH.BTL 1 DRP RIGHT EYE (19:53)
[2019-10-07 05:45] LABS: Absolute Lymphocyte Count 0.27 X10^3/uL (0.83-4.51); Absolute Neutrophil Count 2.4 X10^3/uL (2.0-7.7); Basophil# 0.03 X10^3/uL; Basophil% 0.8 % (0-1); Eosinophil# 0.23 X10^3/uL; Eosinophils% 6.3 % (0-5); Hematocrit 35.2 % (37-47); Hemoglobin 10.9 g/dL (12.0-15.0); Lymphocyte # 0.27 X10^3/ul (4.0); Lymphocyte % 7.4 % (19-41); Mean Corpuscular Hgb 29.5 pg (27.0-32.0); Mean Corpuscular Volume 95.4 fL (81-99); Mean Platelet Vol. 8.9 fl (6.2-12.0); Monocyte# 0.56 X10^3/uL; Monocyte% 15.4 % (0-10); NRBC Flagged by Analyzer 0 % (0-5); Neutrophil # 2.39 X10^3/uL (2.7-7.7); POSITIVE DIFFERENTIAL YES; Platelet Count 253 K/mm3 (150-450); RBC Distribution Width CV 13.6 % (11.6-14.6); RBC Distribution Width SD 48.1 fl (35.1-43.9); Red Blood Count 3.69 M/mm3 (4.2-5.4); White Blood Count 3.6 K/mm3 (4.4-11.0)
[2019-10-07 05:51] LABS: Differential Indicated SCAN CRITERIA MET
[2019-10-07 06:05] LABS: AST(SGOT) 17 U/L (15-37); Alanine Aminotransfer ALT/SGPT 18 U/L (13-56); Albumin, Serum 3.1 g/dL (3.2-5.0); Alkaline Phosphatase 188 U/L (45-117); Anion Gap 6 (5-15); BUN 19 mg/dL (7-18); BUN/Creat Ratio 24.1 RATIO (10-20); Calcium,Total 8.8 mg/dL (8.5-10.1); Chloride 104 mmol/L (98-107); Creatinine, Serum 0.79 mg/dL (0.55-1.02); EST Glomerular Filtration Rate 77 mL/min (>60); Est Glom Filt Rate - Afr Amer 93 mL/min (>60); Estimated Creatinine Clearance 54.32 ml/min; Glucose 106 mg/dL (74-106); Magnesium 1.8 mg/dL (1.6-2.6); Potassium 4.5 mmol/L (3.5-5.1); Protein, Total 6.1 g/dL (6.4-8.2); Sodium Level 136 mmol/L (136-145)
[2019-10-07] MEDS: traMADol 50 MG Tablet PO ×3 (06:22→21:19)
[2019-10-07] MEDS: Acetaminophen 500 MG Tablet 1000 MG PO ×3 (06:22→21:18)
[2019-10-07] MEDS: Enoxaparin 40 MG/0.4 ML Syringe SC (06:23)
[2019-10-07] MEDS: Levothyroxine 50 MCG Tablet PO (06:23)
[2019-10-07 06:24] LABS: Differential Comment SCANNED
[2019-10-07 07:00] VITALS: BP 144/69; PULSE 87; RESP 12; TEMP 36.6; O2SAT 96
[2019-10-07 07:15] LABS: Bedside Glucose 108 mg/dL (70-110)
[2019-10-07 07:42] VITALS: BP 114/69; PULSE 87
[2019-10-07] MEDS: hydrALAZINE 25 MG Tablet PO ×2 (07:42→21:17)
[2019-10-07] MEDS: NIFEdipine 60 MG Tablet PO (07:42)
[2019-10-07] MEDS: Arthritis Pain Compound 60 CLICK TUBE TOPICAL ×2 (07:42→21:17)
[2019-10-07] MEDS: DIFLUPREDNATE 5 ML DROPS 1 DRP OP ×2 (07:42→21:18)
[2019-10-07] MEDS: Aspirin E.C. 81 MG Tablet PO (07:43)
[2019-10-07] MEDS: Senna/Docusate Sodium 1 Tablet 2 TABLET PO ×2 (07:43→21:22)
[2019-10-07] MEDS: Venlafaxine XR 75 MG Capsule PO (07:43)
[2019-10-07] MEDS: predniSONE 5 MG Tablet PO (07:43)
[2019-10-07] MEDS: Smz/Tmp Ds Tablet 1 TABLET PO (07:43)
[2019-10-07] MEDS: Pantoprazole Sodium 40 MG Tablet PO (07:43)
[2019-10-07] MEDS: Ascorbic Acid 500 MG Tablet PO (07:43)
[2019-10-07] MEDS: Carvedilol 25 MG Tablet PO ×2 (07:43→16:57)
[2019-10-07] MEDS: LINAGLIPTIN 5 MG TABLET PO (07:44)
[2019-10-07] MEDS: Tacrolimus Anhydrous 1 MG Capsule 8 MG PO (07:44)
[2019-10-07] MEDS: glipiZIDE 10 MG Tablet 15 MG PO (07:44)
[2019-10-07] MEDS: Mycophenolate Mofetil 250 MG Capsule 750 MG PO ×2 (07:44→21:17)
[2019-10-07] MEDS: Ferrous Sulfate 325 MG Tablet PO (07:45)
[2019-10-07] MEDS: Glucerna Shake 120 ML LIQUID PO ×2 (07:45→11:47)
[2019-10-07 11:30] LABS: Bedside Glucose 184 mg/dL (70-110)
[2019-10-07] MEDS: Insulin Lispro 100 UNIT/ML INSULN.PEN SC ×2 (11:46→16:56)
--- NOTE | 2019-10-07 12:47 | PCM.PN.BLA ---
Progress Note Looks great today. I saw her in the therapy room practicing standing balance. She is smiling and in an excellent mood. Afebrile Vital signs stable Good oral intake All lab was personally reviewed. White blood cell count is low at 3.6 today. Hemoglobin is 10.9 which is stable. Platelets are within normal limits. Sodium is now normal at 136 and the BUN is 19 with a creatinine of 0.79. Calcium is 8.8 and the magnesium is 1.8. Tacrolimus level was sent again today but will not be back for several days. The last tacrolimus level was 5.0 which is within the therapeutic range. alert, smiling, NAD Lungs - CTA, HRRR, no gallop and no rub abd - soft NT peripheral edema is much improved and the weight has significantly decreased due to loss of water weight Impressions 1. post Hip fracture debility 2. Dehydration-resolved 3. History of renal transplant in May 2019-tacrolimus level drawn today is still pending 4. DM II - coming under good control - she will follow with Dr. Curiel post discharge Doing very well, plan on DC home 10/09 Continue therapy Continue the compounded arthritis cream to the R hip for pain control Continue Tramadol PRN Inpatient E&M: [id number] Subs Hosp L2
[2019-10-07 13:13] LABS: Pathologist Review Reviewed
[2019-10-07 16:45] LABS: Bedside Glucose 198 mg/dL (70-110)
[2019-10-07 21:17] VITALS: PULSE 84
--- NOTE | 2019-10-07 21:30 | NURSING ---
pt refusing hs accucheck at this time. pt still requests insulin dose even without the accucheck. pt educated on the importance of accuchecks, will continue to monitor for s/sx of hypoglycemia.
[2019-10-07 22:00] VITALS: BP 157/68; PULSE 84; RESP 16; TEMP 36.8; O2SAT 97
[2019-10-08] MEDS: Levothyroxine 50 MCG Tablet PO (06:42)
[2019-10-08] MEDS: Acetaminophen 500 MG Tablet 1000 MG PO ×3 (06:42→21:11)
[2019-10-08] MEDS: Arthritis Pain Compound 60 CLICK TUBE TOPICAL ×2 (06:43→21:08)
[2019-10-08 06:55] LABS: Bedside Glucose 75 mg/dL (70-110)
[2019-10-08] MEDS: Tacrolimus Anhydrous 1 MG Capsule 8 MG PO (07:53)
[2019-10-08] MEDS: DIFLUPREDNATE 5 ML DROPS 1 DRP OP ×2 (07:53→21:09)
[2019-10-08 07:54] VITALS: BP 136/64; PULSE 90
[2019-10-08] MEDS: Smz/Tmp Ds Tablet 1 TABLET PO (07:54)
[2019-10-08] MEDS: hydrALAZINE 25 MG Tablet PO ×2 (07:54→21:08)
[2019-10-08] MEDS: Mycophenolate Mofetil 250 MG Capsule 750 MG PO ×2 (07:54→21:09)
[2019-10-08] MEDS: Carvedilol 25 MG Tablet PO ×2 (07:54→16:40)
[2019-10-08] MEDS: Ascorbic Acid 500 MG Tablet PO (07:54)
[2019-10-08] MEDS: predniSONE 5 MG Tablet PO (07:54)
[2019-10-08] MEDS: Ferrous Sulfate 325 MG Tablet PO (07:54)
[2019-10-08] MEDS: LINAGLIPTIN 5 MG TABLET PO (07:54)
[2019-10-08] MEDS: Aspirin E.C. 81 MG Tablet PO (07:54)
[2019-10-08] MEDS: Senna/Docusate Sodium 1 Tablet 2 TABLET PO ×2 (07:55→21:10)
[2019-10-08] MEDS: Venlafaxine XR 75 MG Capsule PO (07:55)
[2019-10-08] MEDS: NIFEdipine 60 MG Tablet PO (07:56)
[2019-10-08] MEDS: Pantoprazole Sodium 40 MG Tablet PO (07:56)
[2019-10-08] MEDS: glipiZIDE 10 MG Tablet 15 MG PO (07:56)
[2019-10-08] MEDS: traMADol 50 MG Tablet PO ×2 (08:01→21:11)
[2019-10-08 08:03] VITALS: BP 136/64; PULSE 90; RESP 16; TEMP 35.9; O2SAT 95
[2019-10-08] MEDS: Glucerna Shake 120 ML LIQUID PO ×2 (11:29→16:40)
[2019-10-08 11:41] LABS: Bedside Glucose 141 mg/dL (70-110)
--- NOTE | 2019-10-08 14:54 | NURSING ---
wound photo: right heel
--- NOTE | 2019-10-08 16:02 | CASEMGMT ---
Social Work Spoke with pt about DC plans. Pt agreeable to DC as planned 10/09. to transport pt. Pt requested outpatient therapy at [facility]. Referral made for PT/OT. Pt requesting quad cane. Referral made to [facility] and instructed pt for to orange picker prior to after DC. Pt understood. Plan: DC home with 10/09 [facility] Outpatient PT/OT. [facility] - Quad Cane Huong Wing, FISHING MANAGER NODE JS DEVELOPER
[2019-10-08] MEDS: Insulin Lispro 100 UNIT/ML INSULN.PEN SC (16:42)
[2019-10-08 16:45] LABS: Bedside Glucose 206 mg/dL (70-110)
[2019-10-08 21:08] VITALS: PULSE 87
[2019-10-08] MEDS: prednisoLONE eye drops (1 mL) 1 DROP OPTH.BTL 1 DRP RIGHT EYE (21:10)
[2019-10-08 21:51] VITALS: BP 139/80; PULSE 87; RESP 18; TEMP 36.8; O2SAT 97
[2019-10-09] MEDS: Acetaminophen 500 MG Tablet 1000 MG PO ×3 (07:04→21:15)
[2019-10-09] MEDS: Levothyroxine 50 MCG Tablet PO (07:05)
[2019-10-09] MEDS: traMADol 50 MG Tablet PO ×3 (07:06→21:15)
[2019-10-09 07:25] LABS: Bedside Glucose 81 mg/dL (70-110)
[2019-10-09 08:00] VITALS: BP 139/68; PULSE 81; RESP 18; TEMP 36.2; O2SAT 96
[2019-10-09] MEDS: Mycophenolate Mofetil 250 MG Capsule 750 MG PO ×2 (08:16→21:13)
[2019-10-09] MEDS: Aspirin E.C. 81 MG Tablet PO (08:16)
[2019-10-09] MEDS: LINAGLIPTIN 5 MG TABLET PO (08:17)
[2019-10-09] MEDS: Carvedilol 25 MG Tablet PO ×2 (08:17→16:23)
[2019-10-09] MEDS: glipiZIDE 10 MG Tablet 15 MG PO (08:17)
[2019-10-09 08:18] VITALS: PULSE 81
[2019-10-09] MEDS: Smz/Tmp Ds Tablet 1 TABLET PO (08:18)
[2019-10-09] MEDS: Ferrous Sulfate 325 MG Tablet PO (08:18)
[2019-10-09] MEDS: predniSONE 5 MG Tablet PO (08:18)
[2019-10-09] MEDS: hydrALAZINE 25 MG Tablet PO ×2 (08:18→21:13)
[2019-10-09] MEDS: Ascorbic Acid 500 MG Tablet PO (08:18)
[2019-10-09] MEDS: Pantoprazole Sodium 40 MG Tablet PO (08:19)
[2019-10-09] MEDS: Tacrolimus Anhydrous 1 MG Capsule 8 MG PO (08:19)
[2019-10-09] MEDS: Venlafaxine XR 75 MG Capsule PO (08:20)
[2019-10-09] MEDS: NIFEdipine 60 MG Tablet PO (08:20)
[2019-10-09] MEDS: ENTECAVIR 0.5 MG TABLET PO (08:21)
[2019-10-09] MEDS: DIFLUPREDNATE 5 ML DROPS 1 DRP OP ×2 (08:21→21:14)
[2019-10-09] MEDS: Arthritis Pain Compound 60 CLICK TUBE TOPICAL ×2 (08:30→21:13)
--- NOTE | 2019-10-09 08:53 | NURSING ---
Made patient aware that this RN scanned in the last of her Entecavir. She states she will make sure her knows. She asked this RN to dispose of bottle for her.
--- NOTE | 2019-10-09 10:21 | PCM.PN.BLA ---
Progress Note Afebrile VSS Maintaining appropriate oxygen saturation on RA Oral intake is good Discussed with nursing - no problems that need addressed Reviewed the PT/OT notes Medication list reviewed. Blood sugar results were reviewed. FBS has been low the past 3 mornings. HS Lantus has been decreased to 20 units. She tells me that she has eliminated the HS snack. No CP, SOB, dysuria, abd pain, palpitations, calf tenderness. Alert, MMM, appropriate Lungs - CTA HRRR with no rub or gallop abd - soft, NT, ND, normal BS's present minimal peripheral edema No calf tenderness incision is clean, and without anurag-incisional erythema or discharge Mood - upbeat, smiling, happy to be going home and feels as though she is ready for DC Impressions 1. Debility secondary to a fall resulting in a closed intertrochanteric fracture of the right femur. She is status post ORIF. 2. History of renal transplant in May 2019-on immunosuppressive therapy 3. Diabetes mellitus type 2-coming under better control on glipizide 15 mg every morning, Januvia 5 mg daily and 20 units of Lantus at at bedtime 4. History of hepatitis C in the transplanted kidney 5. Chronic constipation 6. Diabetic polyneuropathy 7. History of a Charcot foot on the right 8. Dehydration-resolved 9. Acute blood loss anemia on chronic anemia-hemoglobin stable after transfusion of 2 units of packed red blood cells early in her admission to rehab 10. GERD 11. Left carotid bruit 12. Osteoarthritis 13. History of macular degeneration and scleritis 14. Leukopenia 15. Hyponatremia-resolved 16. Borderline iron saturation at 20.2% Plan discharge for 10/10/2019 and follow-up with her PCP, Dr. Bolivar Rankin from orthopedics, renal transplant team at [facility] and Dr. Dai. STROKE Vital Signs/Narrative: Vital Signs Temp Pulse Resp BP Pulse Ox 10/09/19 08:18 81 10/09/19 08:00 97.1 F L 81 18 139/68 H 96 Inpatient E&M: [id number] Subs Hosp L2
[2019-10-09] MEDS: Insulin Lispro 100 UNIT/ML INSULN.PEN SC ×2 (12:06→16:26)
[2019-10-09] MEDS: Glucerna Shake 120 ML LIQUID PO ×2 (12:07→16:23)
[2019-10-09 12:21] LABS: Bedside Glucose 153 mg/dL (70-110)
[2019-10-09 16:41] LABS: Bedside Glucose 208 mg/dL (70-110)
[2019-10-09 20:05] VITALS: BP 153/67; PULSE 86; RESP 16; TEMP 36.6; O2SAT 98
[2019-10-09 20:39] LABS: Tacrolimus (FK506) 3.9 ng/mL (2.0-20.0)
[2019-10-09 21:13] VITALS: PULSE 74
--- NOTE | 2019-10-09 21:30 | NURSING ---
pt refuses hs accucheck at this time. pt still requests hs lantus dose. will monitor for s/sx of hypoglycemia.
[2019-10-10] MEDS: Levothyroxine 50 MCG Tablet PO (06:02)
[2019-10-10] MEDS: Acetaminophen 500 MG Tablet 1000 MG PO (06:02)
[2019-10-10 06:45] LABS: Bedside Glucose 82 mg/dL (70-110)
[2019-10-10] MEDS: traMADol 50 MG Tablet PO (08:08)
[2019-10-10] MEDS: glipiZIDE 10 MG Tablet 15 MG PO (08:09)
[2019-10-10] MEDS: Ascorbic Acid 500 MG Tablet PO (08:13)
[2019-10-10] MEDS: NIFEdipine 60 MG Tablet PO (08:13)
[2019-10-10] MEDS: Carvedilol 25 MG Tablet PO (08:14)
[2019-10-10] MEDS: Smz/Tmp Ds Tablet 1 TABLET PO (08:14)
[2019-10-10] MEDS: Aspirin E.C. 81 MG Tablet PO (08:14)
[2019-10-10] MEDS: Ferrous Sulfate 325 MG Tablet PO (08:15)
[2019-10-10] MEDS: Pantoprazole Sodium 40 MG Tablet PO (08:15)
[2019-10-10] MEDS: Venlafaxine XR 75 MG Capsule PO (08:16)
[2019-10-10] MEDS: predniSONE 5 MG Tablet PO (08:16)
[2019-10-10 08:17] VITALS: PULSE 82
[2019-10-10] MEDS: hydrALAZINE 25 MG Tablet PO (08:17)
[2019-10-10] MEDS: Mycophenolate Mofetil 250 MG Capsule 750 MG PO (08:19)
[2019-10-10] MEDS: Tacrolimus Anhydrous 1 MG Capsule 8 MG PO (08:19)
[2019-10-10] MEDS: DIFLUPREDNATE 5 ML DROPS 1 DRP OP (08:21)
[2019-10-10] MEDS: Arthritis Pain Compound 60 CLICK TUBE TOPICAL (08:22)
[2019-10-10] MEDS: LINAGLIPTIN 5 MG TABLET PO (08:23)
[2019-10-10 08:25] VITALS: BP 136/64; PULSE 82; RESP 16; TEMP 36.3; O2SAT 99
--- NOTE | 2019-10-10 08:37 | NURSING ---
see therapy notes for Functional Assessment information
--- NOTE | 2019-10-10 10:01 | DCINST_ITS ---
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 Bolivar Rankin at [facility] Osteoarthritis (Chronic) Type 2 diabetes mellitus with Charcot's joint of right foot (Chronic) Left carotid bruit (Chronic) GERD (gastroesophageal reflux disease) (Chronic) Atelectasis (Acute) You will use the following diet at home:: Calorie/Carbohydrate Controlled (specify 1200, 1400, etc) - carbohydrate controlled, low fat and low salt Your food should be the consistency of: Regular Your liquids should be the consistency of: Regular/Thin Discharge Activity: May Not Drive Ice area for (Minutes): 15 - after exercise to help with inflammation and pain Weight Bearing Status: Full weight bearing Keep extremity elevated above heart level: Legs Call your doctor if your incision/area has: Continuous Slow Oozing, Sudden Increased Bleeding, Increased Pain/ Swelling, Increased Redness, Foul Smelling Discharge, Swelling at the incision site Call your doctor if you observe: Fever of 101 or Higher, Inability to urinate, Inability to have a bowel movement, Shortness of breath, Dizziness, Fainting sp ells, Swelling in the ankles, Chest pain, Calf discomfort, Uncontrolled pain Cleanse incision/area with: Soap & Water Additional Instructions: 1. The systolic BP is a tad high and is consistently > 135. The diastolic BP is good. I would discuss this with the renal transplant team and see if they want to increase the Hydralazine to 3 times a day or add another med. 2. Your blood count has been stable since the transfusion of the 2 units of blood at admission. You are still mildly anemic and I have you on an iron supplement. Iron needs and acidic enviroment to be absorbed. Medications like Protonix (Pantoprozole) decrease the acid in the stomach nearly 100% making it hard to absorb oral iron. I want you to take the iron supplement with a Vitamin C (ascorbic acid) to help your GI tract absorb the iron. 3. I changed the Paxil. I find that Paxil makes some people sleepy and gives some hand tremors. I started you on a medication called Effexor (venlafaxine). This medication not only treats anxiety and depression but, it is also used to help with chronic pain and you have been tolerating well. It does not make you sleepy. 4. It was a pleasure to meet you Maria De Jesus. You have done GREAT in rehab.....we have all been impressed with your progress. I feel confident that you are going to do well at home. You have certainly been through a lot this past 4 months. If you have any questions after getting home please do not hesitate to call me. My office is [phone] and my cell number is [phone]. The Rehab unit nursing station is [phone]. Take care of yourself and enjoy life! I decreased the Lantus at night to 20 units. IF the AM blood sugar stays less than 100 you can decrease the dose to 18 units. Pending Tests on Discharge: none Allergies/Adverse Reactions: Allergies amoxicillin Allergy (Verified 01/15/16 21:29) Unknown Medications to take at Discharge ALPRAZolam [Xanax] 0.5 mg PO BID PRN PRN #30 tablet 01/27/16 Atorvastatin Calcium [Lipitor] 80 mg PO QHS #30 tablet 01/27/16 Cholecalciferol (VIT D3) [Vitamin D3] 4,000 unit PO DAILY@0800 #0 tablet 01/27/16 Dextran 70/He-Cell [Tears Naturale, Artificial Tears] 2 drop EACH EYE Q1H PRN PRN #0 bottle 01/27/16 Fluticasone 0.05% [Flonase Nasal [place]] 1 spray NASAL BID #1 nasal.sry 01/27/16 Furosemide [Lasix] 40 mg PO BID@1000,1800 #60 tablet 01/27/16 Linagliptin [Tradjenta] 5 mg PO DAILY@0800 #30 tablet 01/27/16 Loratadine [Claritin] 10 mg PO DAILY #30 tablet 01/27/16 proMETHazine tablet [Phenergan tablet] 25 mg PO Q6H PRN PRN #30 tablet 01/27/16 traZODone [Desyrel] 50 mg PO QHS #30 tablet 01/27/16 Aspirin E.C. [Ecotrin] 81 mg PO DAILY@0800 09/23/19 Bisacodyl [Dulcolax] 10 mg PO DAILY PRN 09/24/19 Lactobacillus Rhamnosus GG [Culturelle] 1 cap PO BID 09/24/19 Acetaminophen [Tylenol] 1,000 mg PO Q8H PRN #1 tab 10/10/19 Arthritis Pain Compound 2 click TOPICAL BID gm 10/10/19 Ascorbic Acid [Vitamin C] 500 mg PO DAILY@0800 #90 tab 10/10/19 Carvedilol [Coreg (Beta Soraya)] 25 mg PO BIDCM #60 tab 10/10/19 Difluprednate [Durezol] 1 ml OP BID drops 10/10/19 Entecavir [Baraclude] 0.5 mg PO Q72H tab 10/10/19 Ferrous Sulfate 325 mg PO DAILY@0800 tab 10/10/19 Insulin Glargine [Lantus SoloStar Pen] 20 units SUBCUT QHS pen 10/10/19 Levothyroxine [Synthroid] 50 mcg PO DAILY@0600 tab 10/10/19 Linagliptin [Tradjenta] 5 mg PO DAILY #30 tab 10/10/19 Mycophenolate Mofetil [Cellcept] 750 mg PO BID #60 cap 10/10/19 NIFEdipine [Procardia Xl] 60 mg PO DAILY #30 tab 10/10/19 Pantoprazole Sodium [Protonix] 40 mg PO DAILY #30 tab 10/10/19 Smz/Tmp Ds [Bactrim Ds] 1 tab PO DAILYCM #30 tab 10/10/19 Tacrolimus Anhydrous [Prograf] 8 mg PO DAILY #240 cap 10/10/19 Venlafaxine XR [Effexor Xr] 75 mg PO DAILY #30 cap 10/10/19 glipiZIDE [Glucotrol] 15 mg PO QAM@0800 #45 tab 10/10/19 hydrALAZINE [Apresoline] 25 mg PO BID #60 tab 10/10/19 traMADol [Ultram] 50 mg PO Q6H PRN PRN #28 tab 10/10/19 Bad tableTest Results: Test results from this visit will be discussed in further detail at your follow- up appointment, if applicable. Please Follow Up With: Bolivar Rankin-ortho When: Monday Please Follow Up With: Ramirez Barrios-ict sales assistant When: Monday Please Follow Up With: Dr. Erwin Curiel-[employer] When: Monday Please Follow Up With: [facility] When: Please Follow Up With: Bela Espitia MD-PCP When: Monday Please Follow Up With: Podiatry Proposed Discharge Date: 10/10/19
--- NOTE | 2019-10-10 10:45 | PCM.DC.SUM ---
Discharge Date and Diagnosis - Problem List Patient Problems: Active and Suspected Problems Debility (Acute) Blood transfusion during current hospitalisation (Acute) Closed intertrochanteric fracture of right femur (Acute) Acute on chronic anemia (Acute) History of open reduction and internal fixation (ORIF) procedure (Acute) 09/13/[address] Bolivar Rankin at [facility] Date of Admission: 09/23/19 Date of Discharge: 10/10/19 - Primary Discharge Diagnosis Acute Problems: Active Problems Debility (Acute) due to hip fracture and subsequent ORIF Blood transfusion during current hospitalization (Acute) - 2 units PRBC's Closed intertrochanteric fracture of right femur (Acute) Acute on chronic anemia (Acute) requiring transfusion for a HGB of 6.5 at admission History of open reduction and internal fixation (ORIF) procedure (Acute) 09/13/[address] 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) Fibrocystic breast disease (Chronic) Scleritis (Chronic) Osteoarthritis (Chronic) Type 2 diabetes mellitus with Charcot's joint of right foot (Chronic) Left carotid bruit (Chronic) GERD (gastroesophageal reflux disease) (Chronic) Depression (Chronic) Hyperlipidemia (Chronic) Hypertension (Chronic) Edema (Chronic) BL LE's due to venous insufficiency Cataract (Chronic) Abnormal mammogram (Chronic) Myopia (Chronic) Anxiety (Chronic) Hospital Course and Treatment Imaging Results: Clinical Impression(s) from Imaging Studies Femur X-Ray 09/27/19 13:35 IMPRESSION: Status post ORIF of the right intertrochanteric fracture. There is good alignment. Vascular calcification. Electronically Signed: Jey Jean-Baptiste, at 15:15 EDT , Service support , Laboratory Last Values WBC 3.6 K/mm3 (4.4-11.0) L 10/07/19 05:35 RBC 3.69 M/mm3 (4.2-5.4) L 10/07/19 05:35 Hgb 10.9 g/dL (12.0-15.0) L 10/07/19 05:35 Hct 35.2 % (37-47) L 10/07/19 05:35 MCV 95.4 fL (81-99) 10/07/19 05:35 MCH 29.5 pg (27.0-32.0) 10/07/19 05:35 MCHC 31.0 g/dL (32-36) L 10/07/19 05:35 RDW Std Deviation 48.1 fl (35.1-43.9) H 10/07/19 05:35 RDW Coeff of Laila 13.6 % (11.6-14.6) 10/07/19 05:35 Plt Count 253 K/mm3 (150-450) 10/07/19 05:35 MPV 8.9 fl (6.2-12.0) 10/07/19 05:35 Immature Gran % (Auto) 4.100 % (0.0-0.9) H 10/07/19 05:35 Neut % (Auto) 66.0 % (47-70) 10/07/19 05:35 Lymph % (Auto) 7.4 % (19-41) L 10/07/19 05:35 Kidder % (Auto) 15.4 % (0-10) H 10/07/19 05:35 Eos % (Auto) 6.3 % (0-5) H 10/07/19 05:35 Baso % (Auto) 0.8 % (0-1) 10/07/19 05:35 Absolute Neuts (auto) 2.4 X10^3/uL (2.0-7.7) 10/07/19 05:35 Absolute Lymphs (auto) 0.27 X10^3/uL (0.83-4.51) L 10/07/19 05:35 Total Counted 100 (MANUAL DIFF) 09/30/19 05:43 Neutrophils % (Manual) 83 % (47-70) H 09/30/19 05:43 Band Neutrophils % 5 % (0-5) 09/30/19 05:43 Lymphocytes % (Manual) 1 % (19-41) L 09/30/19 05:43 Monocytes % (Manual) 7 % (0-10) 09/30/19 05:43 Eosinophils % (Manual) 4 % (0-5) 09/30/19 05:43 Nucleated RBC % 0 % (0-5) 10/07/19 05:35 Differential Comment SCANNED 10/07/19 05:35 Diff Path Review Reviewed 10/07/19 05:35 Platelet Estimate ADEQUATE (ADEQ) 09/30/19 05:43 RBC Morphology NORM C+C NORMAL (NORM C&C) 09/30/19 05:43 ESR 44 mm/hr (0-30) H 09/30/19 05:43 Sodium 136 mmol/L (136-145) 10/07/19 05:35 Potassium 4.5 mmol/L (3.5-5.1) 10/07/19 05:35 Chloride 104 mmol/L (98-107) 10/07/19 05:35 Carbon Dioxide 26.0 mmol/L (21.0-32.0) 10/07/19 05:35 Anion Gap 6 (5-15) 10/07/19 05:35 BUN 19 mg/dL (7-18) H 10/07/19 05:35 Creatinine 0.79 mg/dL (0.55-1.02) 10/07/19 05:35 Estim Creat Clear Calc 54.32 ml/min 10/07/19 05:35 Est GFR (MDRD) Af Amer 93 mL/min (>60) 10/07/19 05:35 Est GFR (MDRD) Non-Af 77 mL/min (>60) 10/07/19 05:35 BUN/Creatinine Ratio 24.1 RATIO (10-20) H 10/07/19 05:35 Glucose 106 mg/dL (74-106) 10/07/19 05:35 Hemoglobin A1c 5.8 % (3.8-5.6) H 09/24/19 05:25 Calcium 8.8 mg/dL (8.5-10.1) 10/07/19 05:35 Phosphorus 3.1 mg/dL (2.5-4.9) 09/24/19 05:25 Magnesium 1.8 mg/dL (1.6-2.6) 10/07/19 05:35 Iron 35 ug/dL (50-170) L 09/24/19 05:25 TIBC 173 ug/dL (250-450) L 09/24/19 05:25 Iron Saturation 20.2 % (15.0-55.0) 09/24/19 05:25 Ferritin 3759 ng/mL (8-252) H 09/24/19 05:25 Total Bilirubin 0.40 mg/dL (0.20-1.00) 10/07/19 05:35 AST 17 U/L (15-37) 10/07/19 05:35 ALT 18 U/L (13-56) 10/07/19 05:35 Alkaline Phosphatase 188 U/L (45-117) H 10/07/19 05:35 C-React Prot Ext Range 12.50 mg/L (0.0-3.0) H 09/30/19 05:43 Total Protein 6.1 g/dL (6.4-8.2) L 10/07/19 05:35 Albumin 3.1 g/dL (3.2-5.0) L 10/07/19 05:35 Globulin 3.0 g/dL (2.2-4.2) 10/07/19 05:35 Albumin/Globulin Ratio 1.0 RATIO (0.9-2.4) 10/07/19 05:35 Vitamin D 25-Hydroxy 12.0 ng/mL 09/24/19 13:35 TSH 2.05 uIU/mL (0.358-3.74) 09/24/19 05:25 Free T4 1.19 ng/dL (0.76-1.46) 09/24/19 05:25 Urine Color Yellow (Yellow) 09/24/19 16:35 Urine Clarity Clear (Clear) 09/24/19 16:35 Urine pH 5.0 (5.0 - 8.0) 09/24/19 16:35 Ur Specific Hindman 1.020 (1.002-1.030) 09/24/19 16:35 Urine Protein 30 mg/dl (Negative) H 09/24/19 16:35 Urine Glucose (UA) Normal mg/dl (Normal) 09/24/19 16:35 Urine Ketones Negative mg/dl (Negative) 09/24/19 16:35 Urine Occult Blood 10 /ul (Negative) H 09/24/19 16:35 Urine Nitrite Negative (Negative) 09/24/19 16:35 Urine Bilirubin Negative mg/dL (Negative) 09/24/19 16:35 Urine Urobilinogen 1 mg/dl (Normal) H 09/24/19 16:35 Ur Leukocyte Esterase 25 /ul (Negative) H 09/24/19 16:35 Urine RBC 0-5 SEEN /hpf (0-5) 09/24/19 16:35 Urine WBC 0-5 SEEN /hpf (0-5) 09/24/19 16:35 Ur Squamous Epith Cells 0-5 SEEN /hpf (5-10) 09/24/19 16:35 Urine Bacteria 0 SEEN /hpf (None Seen) 09/24/19 16:35 Urine Mucus 0 SEEN /hpf (<or=2+) 09/24/19 16:35 Tacrolimus 3.9 ng/mL (2.0-20.0) 10/07/19 05:35 POC Glucose 82 mg/dL (70-110) 10/10/19 06:40 Blood Type B POSITIVE 09/24/19 13:35 Antibody Screen NEGATIVE 09/24/19 13:35 Crossmatch See Detail 09/24/19 13:35 Tacrolimus level on 10/07/2019 was 3.9. On 09/30/2019 it was 5.0. Microbiology 09/24/19 16:35 Urine Catheter - Catheter Urine Culture - Final Culture exhibits no growth. 09/26/19 18:20 Stool Stool Occult Blood (AMBERLY) - Final Consultations 09/27/19 02:32 Consult: Onc/Wound/oracle database analyst Routine Comment: PER MARGARITA RN-PT IS DIABETIC Reason for Consult:: PLEASE EVALUATE PT'S R HEEL-RECOMMENDATIONS Comments:: PT HAD SIGNIFICANT SWELLING TO RLE WHICH IS DECREASING, Dr. Erwin Curiel-endocrinology Operations: None Procedures: - - Transfusion of 2 units of packed red blood cells for a hemoglobin of 6.5 at admission to the rehab unit Summary of Care Provided: Nydia Vail is a 69 year old F with a past medical history of hypertension, hyperlipidemia, diabetes mellitus type 2, hypothyroidism, osteoarthritis, ESRD with renal transplant in May 2019, Hep C of the transplanted kidney, Charcot foot on the R, diabetic peripheral polyneuropathy, exudative macular degeneration, Chronic steroids to prevent rejection, FH of CVD, chronic constipation, fibrocystic breast disease, venous insufficiency, anxiety/depression and recent right intertrochanteric hip fracture secondary to a fall. She had ORIF of the R hip on 09/13/19 and a cephalomedullary nail was placed. Post acute stay she was transferred to [facility] acute rehab. Her lab on 09/23/19 prior to leaving [facility] revealed a HGB of 6.5. She requested to be transferred from [facility] to [facility] acute rehab and this transpired on 09/23/2019. She arrived from [facility] with a Flynn catheter in place and it was removed the following day. A UA showed 0-5 white blood cells and was nitrite negative. The urine culture had no growth. CBC on 09/24/2019 showed a normal white blood cell count, hemoglobin of 6.5 and normal platelets. Iron panel showed an iron of 35, a low TIBC of 173, iron saturation of 20.2 and a serum ferritin of 3759. 20.2% is borderline low. Sodium was low at 132 and the BUN was 21 with a creatinine of 0.98. Hemoglobin A1c was 5.8%. T4 and TSH were within normal limits. The vitamin D level was low at 12. Calcium corrected for hypoalbuminemia was within normal limits. She received 2 units of packed red blood cells and the follow-up CBC had a hemoglobin of 8.8. She required no additional transfusions and the hemoglobin prior to discharge was stable at 10.9. White blood cell count was mildly decreased at 3.6 and platelets were within normal limits. BUN and creatinine prior to discharge were 19 and 0.79 respectively. Tacrolimus level on 09/30/2019 was 5.0 and on 10/07/2019 was 3.9. She was having a lot of pain at presentation to the rehab unit and she was quite anxious and forgetful. She had been off Paxil which she normally takes daily at home. Since she had been off Paxil for at least 10 days we elected to discontinue Paxil and start Effexor to treat anxiety/depression and to assist with pain control. I felt the Oxy IR was making her nauseated and sluggish. It was also causing some trouble with confusion. OXY IR was discontinued and she was started on 50 mg of Tramadol and a compounded cream containing lidocaine, diclofenac and baclofen. Good pain control was achieved with this regimen along with scheduled Tylenol 1,000 mg Q 8H. Prior to DC she was taking 2-3 doses of Tramadol daily. She was given a RX for #28 tabs at [place] and will take 50 mg Q6H PRN pain. She was also given a RX for the compounded arthritic cream. Prior to discharge she was ambulating 80-90 feet with a wheeled walker without assistance. She went up/down two 8 inch steps with minimal assistance on 10/09/2019. She completed 6 sit to stands in 30 seconds. She required only minimal assistance for transfers from various surfaces. She completed simple meal prep/cleanup activity and demonstrated ability to stand for 27 minutes at standby assist with upper extremity support from the countertop. She did very well in therapy, better than expected. She was discharged home on 10/10/2019 and will receive outpatient therapy at the [facility]. She has scheduled appointments to follow-up with Dr. Bolivar Rankin from orthopedics, Dr. Wilian Barrios from ophthalmology, Dr. Erwin Curiel for diabetes, the kidney transplant service at the [facility] for neprology, Dr. Espitia her PCP and Podiatry. Alert and oriented x3, pleasant, no apparent distress, smiling, making good eye contact and engaging easily in conversation Mucous membranes are moist Left carotid bruit with brisk carotid upstroke and good pulse volume Lungs-clear to auscultation with good air exchange Heart-regular rate and rhythm, no gallop, no murmur Abdomen-soft, nontender, nondistended, no guarding with palpation Edema in the distal lower extremities has decreased significantly since admission and her weight has decreased 18 pounds secondary to water weight loss. No rashes, no skin breakdown. Incision is intact with no raegan-incisional erythema or discharge Mood-upbeat and definitely improved from admission. Has not required a benzodiazepine since admission to the rehab unit This note was generated with [employer] dictation software. It may contain incorrect words, spelling, and punctuation that were not noted in checking the note before signing. Patient Problems: Active and Suspected Problems Debility (Acute) Blood transfusion during current hospitalisation (Acute) Closed intertrochanteric fracture of right femur (Acute) Acute on chronic anemia (Acute) History of open reduction and internal fixation (ORIF) procedure (Acute) 09/13/[address] Bolivar Rankin at [facility] - Physical Exam Vitals/I&O's: Vital Signs Temp Pulse Resp BP Pulse Ox 97.4 F L 82 16 136/64 H 99 10/10/19 08:25 10/10/19 08:25 10/10/19 08:25 10/10/19 08:25 10/10/19 08:25 Oxygen Delivery Method Room Air Weight: 183 lb 6.793 oz Body Mass Index (BMI) 29.2 Intake and Output for Last 24 Hours 10/08/19 10/09/19 10/10/19 23:59 23:59 23:59 Intake Total 2460 / 2460 1840 / 1840 460 / 460 Output Total 3700 / 4400 4050 / 4050 3000 / 3000 Balance -1240 / -1940 -2210 / -2210 -2540 / -2540 Laboratory Results 10/07/19 05:35: Tacrolimus 3.9 10/09/19 12:05: POC Glucose 153 H 10/09/19 16:26: POC Glucose 208 H 10/10/19 06:40: POC Glucose 82 Current Medications Acetaminophen (Tylenol) 1,000 mg PO Q8H [facility] Last Admin: 10/10/19 06:02 Dose: 1,000 mg Documented by: Ascorbic Acid (Vitamin C) 500 mg PO DAILY@0800 [facility] Last Admin: 10/10/19 08:13 Dose: 500 mg Documented by: Aspirin (Ecotrin) 81 mg PO DAILY@0800 [facility] Last Admin: 10/10/19 08:14 Dose: 81 mg Documented by: Bisacodyl (Dulcolax) 10 mg RECTAL .PRN X 1 PRN PRN Reason: Constipation Bisacodyl (Dulcolax) 10 mg PO DAILY PRN PRN PRN Reason: Constipation Last Admin: 09/26/19 12:12 Dose: 10 mg Documented by: [facility] Admin: 10/10/19 08:14 Dose: 25 mg Documented by: Cholecalciferol (Vitamin D (25mcg)) [facility] Last Admin: 10/10/19 08:14 Dose: 1,000 unit Documented by: Compound Med (Arthritis Pain Compound) 2 click TOPICAL BID [facility]; Protocol Last Admin: 10/10/19 08:22 Dose: 2 click Documented by: Dextrose (D50w Syringe) 0 gm IV X1 PRN; Protocol PRN Reason: Hypoglycemia Docusate Sodium (Colace) 200 mg PO DAILY [facility] Last Admin: 10/10/19 08:17 Dose: Not Given Documented by: Ferrous Sulfate (Ferrous Sulfate) 325 mg PO DAILY@0800 [facility] Last Admin: 10/10/19 08:15 Dose: 325 mg Documented by: Glipizide (Glucotrol) 15 mg PO QAM@0800 [facility] Last Admin: 10/10/19 08:09 Dose: 15 mg Documented by: Glucagon () 1 mg IM .X1 PRN PRN Reason: Hypoglycemia Hydralazine HCl (Apresoline) 25 mg PO BID [facility] Last Admin: 10/10/19 08:17 Dose: 25 mg Documented by: Sodium Chloride () 500 mls @ 15 mls/hr IV PRN PRN PRN Reason: Blood Transfusion Last Infusion: 09/29/19 08:39 Dose: 0 mls/hr Documented by: Insulin Glargine (Lantus (Bkc)) 20 units SC QHS [facility] Last Admin: 10/09/19 21:14 Dose: 20 u Documented by: Insulin Human Lispro (Humalog Kwikpen (Bkc)) 0 unit SC TIDAC [facility]; Protocol Last Admin: 10/10/19 07:48 Dose: Not Given Documented by: Lactobacillus Acidophilus (Acidophilus) 1 tablet PO BID [facility] Last Admin: 10/10/19 08:13 Dose: 1 tablet Documented by: Levothyroxine Sodium (Synthroid) 50 mcg PO DAILY@0600 [facility] Last Admin: 10/10/19 06:02 Dose: 50 mcg Documented by: Linagliptin (Tradjenta) 5 mg PO DAILY [facility] Last Admin: 10/10/19 08:23 Dose: 5 mg Documented by: Magnesium Hydroxide (Milk Of Magnesia) 30 ml PO .PRN X 1 PRN PRN Reason: Constipation Last Admin: 09/26/19 06:00 Dose: 30 ml Documented by: Mycophenolate Mofetil (Cellcept) 750 mg PO BID [facility] Last Admin: 10/10/19 08:19 Dose: 750 mg Documented by: Nifedipine (Procardia Xl) 60 mg PO DAILY [facility] Last Admin: 10/10/19 08:13 Dose: 60 mg Documented by: Nutritional Formula (Lactose Free) (Glucerbill Lopez) 120 ml PO TIDCM [facility] Last Admin: 10/10/19 08:23 Dose: Not Given Documented by: Ondansetron HCl (Zofran Odt) 4 mg PO Q6H PRN PRN PRN Reason: NAUSEA/VOMITING Last Admin: 10/02/19 08:55 Dose: 4 mg Documented by: Pantoprazole Sodium (Protonix) 40 mg PO DAILY [facility] Last Admin: 10/10/19 08:15 Dose: 40 mg Documented by: Prednisolone Acetate (Pred Forte Eye Drops (1 Ml)) 1 drop RIGHT EYE QODAY@2200 [facility] Last Admin: 10/08/19 21:10 Dose: 1 drop Documented by: Prednisone () 5 mg PO DAILY@0800 [facility] Last Admin: 10/10/19 08:16 Dose: 5 mg Documented by: Senna/Docusate Sodium (Senokot-S, Raegan-Colace) 2 tablet PO BID [facility] Last Admin: 10/10/19 07:49 Dose: Not Given Documented by: Sodium Chloride () 10 - 40 ml IV UD PRN PRN Reason: SALINE FLUSH Last Admin: 10/01/19 06:38 Dose: 10 ml Documented by: Tacrolimus (Prograf) 8 mg PO DAILY [facility] Last Admin: 10/10/19 08:19 Dose: 8 mg Documented by: Tramadol HCl (Ultram) 0 mg PO Q6H PRN PRN PRN Reason: Pain Score 4-5/10 Last Admin: 10/10/19 08:08 Dose: 50 mg Documented by: Trimethoprim/Sulfamethoxazole (Bactrim Ds) [facility] Last Admin: 10/10/19 08:14 Dose: 1 tablet Documented by: Venlafaxine HCl (Effexor Xr) 75 mg PO DAILY [facility] Last Admin: 10/10/19 08:16 Dose: 75 mg Documented by: Discharge Activity: May Not Drive Ice area for (Minutes): 15 - after exercise to help with inflammation and pain Weight Bearing Status: Full weight bearing Keep extremity elevated above heart level: Legs Call your doctor if your incision/area has: Continuous Slow Oozing, Sudden Increased Bleeding, Increased Pain/ Swelling, Increased Redness, Foul Smelling Discharge, Swelling at the incision site Call your doctor if you observe: Fever of 101 or Higher, Inability to urinate, Inability to have a bowel movement, Shortness of breath, Dizziness, Fainting spells, Swelling in the ankles, Chest pain, Calf discomfort, Uncontrolled pain Cleanse incision/area with: Soap & Water Home Medications: Medications to take at Discharge ALPRAZolam [Xanax] 0.5 mg PO BID PRN PRN #30 tablet 01/27/16 Atorvastatin Calcium [Lipitor] 80 mg PO QHS #30 tablet 01/27/16 Cholecalciferol (VIT D3) [Vitamin D3] 4,000 unit PO DAILY@0800 #0 tablet 01/27/16 Dextran 70/He-Cell [Tears Naturale, Artificial Tears] 2 drop EACH EYE Q1H PRN PRN #0 bottle 01/27/16 Fluticasone 0.05% [Flonase Nasal [place]] 1 spray NASAL BID #1 nasal.sry 01/27/16 Furosemide [Lasix] 40 mg PO BID@1000,1800 #60 tablet 01/27/16 Linagliptin [Tradjenta] 5 mg PO DAILY@0800 #30 tablet 01/27/16 Loratadine [Claritin] 10 mg PO DAILY #30 tablet 01/27/16 proMETHazine tablet [Phenergan tablet] 25 mg PO Q6H PRN PRN #30 tablet 01/27/16 traZODone [Desyrel] 50 mg PO QHS #30 tablet 01/27/16 Aspirin E.C. [Ecotrin] 81 mg PO DAILY@0800 09/23/19 Bisacodyl [Dulcolax] 10 mg PO DAILY PRN 09/24/19 Lactobacillus Rhamnosus GG [Culturelle] 1 cap PO BID 09/24/19 Acetaminophen [Tylenol] 1,000 mg PO Q8H PRN #1 tab 10/10/19 Arthritis Pain Compound 2 click TOPICAL BID gm 10/10/19 Ascorbic Acid [Vitamin C] 500 mg PO DAILY@0800 #90 tab 10/10/19 Carvedilol [Coreg (Beta Soraya)] 25 mg PO BIDCM #60 tab 10/10/19 Difluprednate [Durezol] 1 ml OP BID drops 10/10/19 Entecavir [Baraclude] 0.5 mg PO Q72H tab 10/10/19 Ferrous Sulfate 325 mg PO DAILY@0800 tab 10/10/19 Insulin Glargine [Lantus SoloStar Pen] 20 units SUBCUT QHS pen 10/10/19 Levothyroxine [Synthroid] 50 mcg PO DAILY@0600 tab 10/10/19 Linagliptin [Tradjenta] 5 mg PO DAILY #30 tab 10/10/19 Mycophenolate Mofetil [Cellcept] 750 mg PO BID #60 cap 10/10/19 NIFEdipine [Procardia Xl] 60 mg PO DAILY #30 tab 10/10/19 Pantoprazole Sodium [Protonix] 40 mg PO DAILY #30 tab 10/10/19 Smz/Tmp Ds [Bactrim Ds] 1 tab PO DAILYCM #30 tab 10/10/19 Tacrolimus Anhydrous [Prograf] 8 mg PO DAILY #240 cap 10/10/19 Venlafaxine XR [Effexor Xr] 75 mg PO DAILY #30 cap 10/10/19 glipiZIDE [Glucotrol] 15 mg PO QAM@0800 #45 tab 10/10/19 hydrALAZINE [Apresoline] 25 mg PO BID #60 tab 10/10/19 traMADol [Ultram] 50 mg PO Q6H PRN PRN #28 tab 10/10/19 traMADol [Ultram] 50 mg PO Q6H PRN PRN 7 Days #28 tab 10/10/19 Bad tablePlease Follow Up With: Bolivar Rankin-juan miguel When: Monday Please Follow Up With: Ramirez Barrios-cuff stitcher When: Monday Please Follow Up With: Dr. Erwin Curiel-Edge Baster When: Monday Please Follow Up With: [facility] When: Please Follow Up With: Bela Espitia MD-PCP When: Monday Please Follow Up With: Podiatry Disposition: Home Minutes spent on discharge:: 45 Patient Condition:: Good Medical Necessity - Tobacco Use Smoking Status: Never smoker Tobacco Use: Non-smoker Meaningful Use Info Meaningful Use Diagnoses (Choose all that apply): None applicable Inpatient E&M: 49086 Disch Hosp
[2019-10-10 11:21] LABS: Bedside Glucose 135 mg/dL (70-110)
== END 2019-10-10 13:55 | disposition home or self-care (01) | DRG 560 ==
PROVIDERS: Admitting Provider Internal Medicine; Visit Provider Internal Medicine
DX: S72.141D Displaced intertrochanteric fracture of right femur, subsequent encounter for closed fracture with routine healing (principal); Z94.0 Kidney transplant status; D62 Acute posthemorrhagic anemia; E87.1 Hypo-osmolality and hyponatremia; W19.XXXD Unspecified fall, subsequent encounter; E11.42 Type 2 diabetes mellitus with diabetic polyneuropathy; F32.9 Major depressive disorder, single episode, unspecified; F41.9 Anxiety disorder, unspecified; M19.90 Unspecified osteoarthritis, unspecified site; E11.610 Type 2 diabetes mellitus with diabetic neuropathic arthropathy; K21.9 Gastro-esophageal reflux disease without esophagitis; I87.2 Venous insufficiency (chronic) (peripheral); E78.5 Hyperlipidemia, unspecified; K59.09 Other constipation; Z96.641 Presence of right artificial hip joint; Z91.19 Patient's noncompliance with other medical treatment and regimen; E11.319 Type 2 diabetes mellitus with unspecified diabetic retinopathy without macular edema
CPT/HCPCS: 36415; 73552; 80048; 80053; 80197; 81001; 82274; 82306; 82728; 82962; 83036; 83540; 83550; 83735; 84100; 84439; 84443; 85025; 85027; 85652; 86140; 86644; 86850; 86900; 86901; 86920; 86922; 87086; 92507; 97110; 97116; 97162; 97166; 97530; 97535; 97802; 99251; J1756; J7040; P9040; A4216; G0463

== ENCOUNTER → 2023-06-12 | Outpatient (CLI) | payer MEDICARE, OTHER, SELFPAY ==
--- NOTE | 2023-06-12 15:40 | RAD_ITS ---
STUDY: X-RAY - RIGHT FOOT CLINICAL: Female, 73 years old. PLANTAR FOOT ULCER TECHNIQUE: 3 view(s) of the foot. COMPARISON: None. FINDINGS: Normal talus, calcaneus, and tarsal bones. Status post midfoot arthrodesis with screws through the first metatarsal bone, first tarsometatarsal joint, first cuneiform, navicular bone and talus. Screw also through the third metatarsal bone through the third tarsometatarsal joint and cuboid bone. Suspect healed fractures about the Lisfranc joint. Normal metatarsi. Normal metatarsophalangeal joint of the great toe. Normal tibial and fibular sesamoid bones. Normal interphalangeal joint of the great toe. Normal phalanges of the great toe. Normal second through fifth metatarsophalangeal joints. Normal interphalangeal joints and phalanges of the lesser toes. There is non-specific soft tissue swelling of the foot. No bony destruction to suggest osteomyelitis. RAD/Foot min 3 Views IMPRESSION: Postsurgical changes but no radiographic evidence of osteomyelitis. Electronically Signed: Norberto Sanchez MD at 22:58 EDT ,
== END | disposition home or self-care (01) ==
PROVIDERS: PCP Internal Medicine; Referring Provider Podiatrist Foot & Ankle Surgery; Visit Provider Podiatrist Foot & Ankle Surgery
DX: L97.519 Non-pressure chronic ulcer of other part of right foot with unspecified severity (principal)
CPT/HCPCS: 73630

== ENCOUNTER 2023-06-21 15:30 | Outpatient (RCR) | payer MEDICARE, OTHER, SELFPAY ==
[2023-06-07 14:21] VITALS: BP 155/88; PULSE 79; RESP 18; BMI 65.3
--- NOTE | 2023-06-07 16:21 | PCM.WC.HP ---
History of Present Illness Date of Service: 06/07/23 Chief Complaint: Full-thickness wound right foot History of Wound: Chronic full-thickness wound right foot Progress of Wound: Ms. Vail is a 73-year-old diabetic female presenting to wound care center today for follow-up evaluation of full-thickness ulceration to the plantar aspect of her right foot at the level of the plantar first metatarsal phalangeal joint. Patient has been seen by multiple outside providers orthopedic surgeon and cryptographer where she has had extensive workup with MRI plain film x-ray, skin graft substitute and multiple excisional debridements. Patient does have a offloading orthotic in her right foot but admits that it is not offloading correctly. She does have lymphedema secondary to a hip fracture which she had repaired by an outside provider. The patient is presenting today for a second opinion to the full-thickness ulceration to the plantar aspect of the right foot. She admits her blood sugar is controlled. Denies trauma. Denies constitutional symptoms. No other pedal complaints at this time. PFSH Home Medications artificial tears(gtdalsd-pyybhttd-ucjccor) 0.1 %-0.3 %-0.2 % eye drops (GenTeal Tears Moderate) 2 drp Q1H PRN PRN Dry Eye ##0 01/27/16 [Rx Last Taken Unknown] atorvastatin 80 mg tablet 80 mg PO QHS ##30 01/27/16 [Rx Last Taken Unknown] cholecalciferol (vitamin D3) 25 mcg (1,000 unit) tablet (Vitamin D3) 4,000 unit PO DAILY@0800 ##0 01/27/16 [Rx Last Taken Unknown] loratadine 10 mg tablet (Allergy Relief (loratadine)) 10 mg PO DAILY ##30 01/27/16 [Rx Last Taken Unknown] aspirin 81 mg tablet,delayed release 81 mg PO DAILY@0800 health 09/23/19 [History Last Taken Unknown] bisacodyl 5 mg tablet,delayed release 10 mg PO DAILY PRN Constipation 09/24/19 [History Last Taken Unknown] acetaminophen 500 mg tablet 1,000 mg (2 x 500 mg) PO Q8H PRN Pain Or Fever #1 TAB 10/10/19 [Rx Last Taken Unknown] carvedilol 25 mg tablet 25 mg PO BIDCM #60 tabs 10/10/19 [Rx Last Taken Unknown] difluprednate 0.05 % eye drops 1 ml OP BID 10/10/19 [Rx Last Taken Unknown] levothyroxine 50 mcg tablet 50 mcg PO DAILY@0600 10/10/19 [Rx Last Taken Unknown] linagliptin 5 mg tablet 5 mg PO DAILY #30 tabs 10/10/19 [Rx Last Taken Unknown] mycophenolate mofetil 250 mg capsule 750 mg (3 x 250 mg) PO BID #60 caps 10/10/19 [Rx Last Taken Unknown] nifedipine 60 mg tablet,extended release 24 hr 60 mg PO DAILY #30 tabs 10/10/19 [Rx Last Taken Unknown] glipizide 10 mg tablet 15 mg PO BID 06/07/23 [History Last Taken Unknown] hydralazine 50 mg tablet 50 mg PO BID 06/07/23 [History Last Taken Unknown] insulin glargine 100 unit/mL (3 mL) subcutaneous pen (Basaglar KwikPen U-100 Insulin) 17 unit subcut DAILY 06/07/23 [History Last Taken Unknown] linagliptin 5 mg tablet (Tradjenta) 5 mg PO DAILY 06/07/23 [History Last Taken Unknown] Allergy/AdvReac Type Severity Reaction Status Date / Time amoxicillin Allergy Unknown Verified 01/15/16 21:29 Social History Smoking Status: Never smoker Vital Signs Vital Signs Vital Signs: 06/07/23 14:21 Pulse Rate 79 Respiratory Rate 18 Blood Pressure 155/88 H Blood Pressure Mean 110 Blood Pressure Source Monitor Blood Pressure Position Semi-Fowlers Blood Pressure Location Left Arm Oxygen Delivery Method Room Air Weight Weight: 195 kg Body Mass Index (BMI) 65.3 Physical Exam Narrative Vascular: DP and PT pulses are palpable. CFT is brisk to all digits bilateral. Nonpitting edema appreciated to the bilateral lower extremity. Evidence of cobblestone distribution secondary to lymphedema to the bilateral lower extremity. Skin temperature gradient warm to warm from proximal ankle to distal digit. No focal increase is appreciated. Neurological: Light touch intact. Protective sensation is diminished. Patient does not respond to painful stimuli. Dermatological: Full-thickness ulceration to the plantar aspect of the right foot at the level of the subfirst metatarsal phalangeal joint. Full-thickness ulceration measures 2.0 x 1.8 x 0.2 cm. Evidence of periwound maceration mild malodor. No drainage. No probe to bone. Cannot rule out infection at this time. Webspaces 1-4 are clean dry and intact. Excisional debridement down to and including subcutaneous tissue with a #15 blade right plantar foot without incident. Predebridement measurement is callus. Postdebridement measurement is 2.0 x 1.8 x 0.2 cm. Musculoskeletal: Muscle strength 5/5 in all quadrants bilateral. No pain to palpation of full-thickness ulceration to the subfirst metatarsal phalangeal joint the right foot. No pain with calf compression. Debridement Note Debridement Note Debridement Free Text: Excisional debridement down to and including subcutaneous tissue with a #15 blade right plantar foot without incident. Predebridement measurement is callus. Postdebridement measurement is 2.0 x 1.8 x 0.2 cm. Post-Debridement Measurements and Additional Note: Post-Debridement Measurements/Treatment - Nurse 1 - General Ulcer Assessment Start: 06/07/23 14:21 Freq: Status: Active Protocol: .LOWEXT Activity Type Activity Date Activity User E-sign Co-sign Detail Recorded Client Recorded Date Recorded By Document 06/07/23 14:21 KW Desktop 06/07/23 14:59 KW 06/07/23 14:21 - Today's Visit Information Type of service Initial Visit Accompanied by Patient Identification Verified (Name & Yes ) Finger Stick Blood Sugar(mg/dl) (if 117 indicated): Blood Sugar Stated by Patient Height and Weight Height 5 ft 8 in Weight 195 kg Weight in Pounds 429.9 lbs Weight Measurement Method Estimated by Patient Body Mass Index (BMI) 65.3 BMI Classification Obese BSA - Rafa 2.83 Vital Signs Pulse Rate (60-100) 79 Pulse Location Monitor Respiratory Rate (12-18) 18 Respiratory rate source Observation Oxygen Delivery Method Room Air Blood Pressure (90/60-120/80) 155/88 H Blood Pressure Mean 110 Source Monitor Position Semi-Fowlers Blood Pressure Location Left Arm History Since Last Visit- (Skip if this is Patient's initial visit) Left Footwear Regular Shoe Right Footwear Regular Shoe Pain Scale: 0-10 Numeric Is Patient Pain Free? Yes Lower Extremity Assessment/ Foot Assessment/ Toe Nail Assessment Left -Posterior Tibial Doppler Monophasic -Dorsalis Pedis Doppler Multiphasic -Capillary Refill Greater than 3 Seconds -Thick Yes -Discolored Yes -Deformed Yes -Improper Length & Hygeine Yes Right -Posterior Tibial Doppler Monophasic -Dorsalis Pedis Doppler Monophasic -Hair Growth on Legs No -Hair Growth on Toes No -Temperature of Extremity Cool -Capillary Refill Less than 3 Seconds -Thick Yes -Discolored Yes -Deformed Yes -Improper Length & Hygeine No Communication Assessment Preferred language Bruneian Student Development Coordinator Required No Able to Read Yes Able to Write Yes Communication Tools None Caregiver Communication Skills No Impairment Impairment Right Hearing Abillity Normal Left Hearing Abillity Normal Visual Assistive Devices None WC - Nurse 1 - General Ulcer Measurement Start: 06/07/23 14:21 Freq: Status: Active Protocol: Activity Type Activity Date Activity User E-sign Co-sign Detail Recorded Client Recorded Date Recorded By Document 06/07/23 14:21 KW Desktop 06/07/23 14:59 KW 06/07/23 14:21 Wound Center Nurse 1 #1 RT PLANTAR -Current Size (cm) - Length 0.1 -Current Size (cm) - Width 0.1 -Current Size (cm) - Depth 0.2 -Total Square Cm 0.01 -Date of Last Picture (Recall this 06/07/23 field) -Tunneling Yes -Tunneling Position (O'clock) 9 -Tunneling Distance (cm) 3 -Exudate Amt Medium -Exudate Type Serosanguineous -Texture (Raegan-wound Skin Appearance) Assessed -Moisture (Raegan-wound Skin Appearance) Assessed -Color (Raegan-wound Skin Appearance) Assessed -Temperature (Raegan-wound Skin No Abnormality Appearance) (Pt Warm) -Tenderness on Palpation (Raegan-wound No Skin Appearance) -Ulcer Cleansing Soap and Water -Foul Odor after Cleansing No -Anesthetic Used 5% Lidocaine Gel Right Calf (cm) 44 Right Ankle (cm) 30.5 Left Calf (cm) 42 Left Ankle (cm) 28 WC - Nurse 2 - General Ulcer CM Notes Start: 06/07/23 14:21 Freq: Status: Active Protocol: Activity Type Activity Date Activity User E-sign Co-sign Detail Recorded Client Recorded Date Recorded By Document 06/07/23 15:23 JF Laptop 06/07/23 15:45 JF 06/07/23 15:23 Wound Center Nurse 2 #1 RT PLANTAR -Time 15:25 -Correct Patient Yes -Correct Side, Site, Position Yes -Correct Procedure Yes -Procedure Performed Yes -Type of Procedure Debridement -Clinical Debridement Subcutaneous -Tissue Removed Subcutaneous -Post Debridement (cm) - Length 2.0 -Post Debridement (cm) - Width 1.8 -Post Debridement (cm) - Depth 0.2 -Total Square (Post) (cm) 3.60 -Area of Debridement (cm) - Length 2.0 -Area of Debridement (cm) - Width 1.8 -Total Square (Area) (cm) 3.60 -Tunneling No -Undermining/Tunneling No -Circular Undermining No -Wound/Ulcer Outcome Not Healed -Ulcer Cleansing Rinsed/ Irrigated with Saline -Foul Odor after Cleansing No -Bioengineered Tissue No -Bleeding Controlled with Pressure,Silver Nitrate -Treatment Response Procedure Tolerated Well -Offloading Yes -Type of Offloading Surgical Shoe -Debridement - Subq, 1st 20sq cm Yes Pain Scale: 0-10 Numeric Is Patient Pain Free? Yes - Nurse 3 - General Ulcer D/C NN Start: 06/07/23 14:21 Freq: Status: Active Protocol: Activity Type Activity Date Activity User E-sign Co-sign Detail Recorded Client Recorded Date Recorded By Document 06/07/23 15:47 KW Desktop 06/07/23 15:48 KW 06/07/23 15:47 Wound Care Center Nurse 3 #1 RT PLANTAR -Other Dressing betadine -Primary Dressing Covered/Secured with Dry Gauze & Roll Gauze, Secured with Tape Left -Tubular Bandage Single Layer -Size of Tubigrip Used Size F -Size F ($) 1 Right -Tubular Bandage Single Layer -Size of Tubigrip Used Size F -Size F ($) 1 Pain Scale: 0-10 Numeric Is Patient Pain Free? Yes - Visit Discharge Discharge Condition Stable Ambulatory Status Wheelchair Transportation Private Auto Accompanied by Medication Reconcilliation completed & No provided to patient/care provider Clinical Summary of Care Provided Yes Assessment/Plan Assessment/Plan (1) Non-pressure chronic ulcer of other part of right foot with fat layer exposed: CODE(S): L97.512 - Non-pressure chronic ulcer of other part of right foot with fat layer exposed PLAN: Patient was examined and evaluated. All findings were discussed with the patient. All questions were answered to the patient's satisfaction. Excisional debridement down to and including subcutaneous tissue with a #15 blade right plantar foot without incident. Predebridement measurement is callus. Postdebridement measurement is 2.0 x 1.8 x 0.2 cm. The right lower extremities were cleaned and patted dry. Full-thickness ulceration was dressed with Betadine paint and sterile Band-Aid. We will order dressing supplies to the patient may do daily dressing changes. Offloading pad was applied to the patient's orthotic to the right foot so the first metatarsal phalangeal joint plantarly can be offloaded correctly. Culture was taken from the full-thickness wound to the plantar aspect of the right foot. Antibiotics to follow. Patient will continue to take cefdinir as written. Vascular studies arterial and venous were ordered since the patient does not have a vascular workup at this time. Patient does have radiographs but they are at the [facility]. Educated the patient to get plain film radiographs at our facility so they may be in the EMR she is agreeable and will get these a soon as possible. Follow-up at the wound care center with Dr. Carrasco in 1 week. (2) Other specified peripheral vascular diseases: CODE(S): I73.89 - Other specified peripheral vascular diseases (3) Lymphedema: CODE(S): I89.0 - Lymphedema, not elsewhere classified
--- NOTE | 2023-06-09 12:25 | WC ---
4.10.24 RT PLANTAR INITIAL
[2023-06-14 15:30] VITALS: BP 157/70; PULSE 83; RESP 16; TEMP 36.8; BMI 65.3
--- NOTE | 2023-06-14 16:13 | PCM.WC.PN ---
History of Present Illness Date of Service: 06/14/23 Chief Complaint: Full-thickness wound right foot History of Wound: Chronic full-thickness wound right foot Progress of Wound: Ms. Vail is a 73-year-old diabetic female presenting to wound care center today for follow-up evaluation of full-thickness ulceration to the plantar aspect of her right foot at the level of the plantar first metatarsal phalangeal joint. 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 Patient does have a offloading orthotic in her right foot but admits that it is not offloading correctly. She does have lymphedema secondary to a hip fracture which she had repaired by an outside provider. The patient is presenting today for a second opinion to the full-thickness ulceration to the plantar aspect of the right foot. She admits her blood sugar is controlled. Denies trauma. Denies constitutional symptoms. No other pedal complaints at this time. Subjective Subjective Ms. Vail is a 71-year-old diabetic female presenting to wound care center at [facility] follow-up evaluation of full-thickness wound to the plantar aspect of her right foot. Patient has been compliant using her offloading pad and applying Betadine paint and Band-Aid to the area. She admits that the wound is smaller. Her blood sugar has been well-controlled with the highest being 160 mg/dL. She denies any new onset of trauma. She denies any new open lesions or abrasions. Denies constitutional symptoms. No other pedal complaints at this time. Objective Data Objective Data Vital Signs: Vital Signs Temp Pulse Resp BP O2 Del Method 98.3 F 83 16 157/70 H Room Air 06/14/23 15:30 06/14/23 15:30 06/14/23 15:30 06/14/23 15:30 06/14/23 15:30 Oxygen Delivery Method Room Air Weight: 195 kg Body Mass Index (BMI) 65.3 Lab / Micro Data Micro: Microbiology 06/07/23 15:34 Wound - Right Foot Gram Stain - Final 06/07/23 15:34 Wound - Right Foot Wound Culture - Final Corynebacterium minutissimum 06/07/23 15:34 Wound - Right Foot Anaerobic Culture - Final Anaerobic cocci Physical Exam Narrative Vascular: DP and PT pulses are palpable. CFT is brisk to all digits bilateral. Nonpitting edema appreciated to the bilateral lower extremity. Evidence of cobblestone distribution secondary to lymphedema to the bilateral lower extremity. Skin temperature gradient warm to warm from proximal ankle to distal digit. No focal increase is appreciated. Neurological: Light touch intact. Protective sensation is diminished. Patient does not respond to painful stimuli. Dermatological: Full-thickness ulceration to the plantar aspect of the right foot at the level of the subfirst metatarsal phalangeal joint. Full-thickness ulceration measures 0.5 x 0.5 x 0.1 cm. Periwound maceration malodor has improved. No drainage. No probe to bone. Excisional debridement down to and including subcutaneous tissue with a # 3 mm dermal curette to the plantar foot without incident. Predebridement measurement is callus. Postdebridement measurement is 0.5 x 0.5 x 0.1 cm. Musculoskeletal: Muscle strength 5/5 in all quadrants bilateral. No pain to palpation of full-thickness ulceration to the subfirst metatarsal phalangeal joint the right foot. No pain with calf compression. Debridement Note Debridement Note Debridement Free Text: Excisional debridement down to and including subcutaneous tissue with a # 3 mm dermal curette to the plantar foot without incident. Predebridement measurement is callus. Postdebridement measurement is 0.5 x 0.5 x 0.1 cm. Post-Debridement Measurements and Additional Note: Post-Debridement Measurements/Treatment - Nurse 1 - General Ulcer Assessment Start: 06/07/23 14:21 Freq: Status: Active Protocol: [id number] Activity Type Activity Date Activity User E-sign Co-sign Detail Recorded Client Recorded Date Recorded By Document 06/07/23 14:21 KW Desktop 06/07/23 14:59 KW Document 06/14/23 15:30 BMF Desktop 06/14/23 15:35 BMF 06/07/23 06/14/23 14:21 15:30 - Today's Visit Information Type of service Initial Visit Follow-up Visit (Physician/FLORIST'S DECORATOR ) Arrival Mode Wheelchair Transfer Assistance Other Transfer Assist (Other) 2 Accompanied by Patient Identification Verified (Name & Yes Yes ) Patient Requires Transmission-Based No Precautions Finger Stick Blood Sugar(mg/dl) (if 117 indicated): Blood Sugar Stated by Patient Height and Weight Height 5 ft 8 in Weight 195 kg Weight in Pounds 429.9 lbs Weight Measurement Method Estimated by Patient Body Mass Index (BMI) 65.3 65.3 BMI Classification Obese Obese BSA - Rafa 2.83 Vital Signs Temperature (97.8 F-99.1 F) 98.3 F Temperature Source Temporal Pulse Rate (60-100) 79 83 Pulse Location Monitor Monitor Respiratory Rate (12-18) 18 16 Respiratory rate source Observation Observation Oxygen Delivery Method Room Air Room Air Blood Pressure (90/60-120/80) 155/88 H 157/70 H Blood Pressure Mean (mm Hg) 110 99 Source Monitor Monitor Position Semi-Fowlers Sitting Blood Pressure Location Left Arm Right Arm History Since Last Visit- (Skip if this is Patient's initial visit) Have you changed medications since your No last visit? Any new allergies or adverse reactions No Had a fall/change in ADL's that may No increase risk of falls Signs or symptoms of abuse and/or No neglect since last visit Have you been in the hospital since your No last visit? Has dressing in place as prescribed Yes Has compression in place as prescribed Yes Has offloadiing in place as prescribed N/A Experienced any changes in pain level or No management Left Footwear Regular Shoe Custom Shoe Right Footwear Regular Shoe Custom Shoe Pain Scale: 0-10 Numeric Is Patient Pain Free? Yes Yes Lower Extremity Assessment/ Foot Assessment/ Toe Nail Assessment Left -Posterior Tibial Doppler Monophasic -Dorsalis Pedis Doppler Multiphasic -Capillary Refill Greater than 3 Seconds -Thick Yes -Discolored Yes -Deformed Yes -Improper Length & Hygeine Yes Right -Posterior Tibial Doppler Monophasic -Dorsalis Pedis Doppler Monophasic -Hair Growth on Legs No -Hair Growth on Toes No -Temperature of Extremity Cool -Capillary Refill Less than 3 Seconds -Thick Yes -Discolored Yes -Deformed Yes -Improper Length & Hygeine No Communication Assessment Preferred language Tamazight Underwear Welter Required No Able to Read Yes Able to Write Yes Communication Tools None Caregiver Communication Skills No Impairment Impairment Right Hearing Abillity Normal Left Hearing Abillity Normal Visual Assistive Devices None WC - Nurse 1 - General Ulcer Measurement Start: 06/07/23 14:21 Freq: Status: Active Protocol: Activity Type Activity Date Activity User E-sign Co-sign Detail Recorded Client Recorded Date Recorded By Document 06/07/23 14:21 KW Desktop 06/07/23 14:59 KW Document 06/14/23 15:30 BMF Desktop 06/14/23 15:35 BMF Edit Result 06/14/23 15:30 BMF (1) Desktop 06/14/23 15:36 BMF (1) Lower Limb Edema Present => Yes Right Calf (cm) => 43 Right Ankle (cm) => 31.5 06/07/23 06/14/23 14:21 15:30 Wound Center Nurse 1 #1 RT PLANTAR -Combined with other wound No -Current Size (cm) - Length 0.1 0.1 -Current Size (cm) - Width 0.1 0.1 -Current Size (cm) - Depth 0.2 0.1 -Total Square Cm 0.01 0.01 -Date of Last Picture (Recall this 06/07/23 field) -Epithelialization Large 67-100% -Tunneling Yes No -Tunneling Position (O'clock) 9 -Tunneling Distance (cm) 3 -Undermining/Tunneling No -Circular Undermining No -Exudate Amt Medium -Exudate Type Serosanguineous -Texture (Raegan-wound Skin Appearance) Assessed Assessed,Callus -Moisture (Raegan-wound Skin Appearance) Assessed Assessed,Dry/ Scaly -Color (Raegan-wound Skin Appearance) Assessed Assessed -Temperature (Raegan-wound Skin No Abnormality No Abnormality Appearance) (Pt Warm) (Pt Warm) -Tenderness on Palpation (Raegan-wound No No Skin Appearance) -Ulcer Cleansing Soap and Water Rinsed/ Irrigated with Saline -Foul Odor after Cleansing No No -Anesthetic Used 5% Lidocaine 5% Lidocaine Gel Gel Lower Limb Edema Present Yes Right Calf (cm) 44 43 Right Ankle (cm) 30.5 31.5 Left Calf (cm) 42 Left Ankle (cm) 28 WC - Nurse 2 - General Ulcer CM Notes Start: 06/07/23 14:21 Freq: Status: Active Protocol: Activity Type Activity Date Activity User E-sign Co-sign Detail Recorded Client Recorded Date Recorded By Document 06/07/23 15:23 Near [employer] Laptop 06/07/23 15:45 JF Document 06/14/23 15:43 Laptop 06/14/23 15:53 06/07/23 06/14/23 15:23 15:43 Wound Center Nurse 2 #1 RT PLANTAR -Time 15:25 15:43 -Correct Patient Yes Yes -Correct Side, Site, Position Yes Yes -Correct Procedure Yes Yes -Procedure Performed Yes Yes -Type of Procedure Debridement Debridement -Clinical Debridement Subcutaneous Subcutaneous -Tissue Removed Subcutaneous Subcutaneous -Post Debridement (cm) - Length 2.0 0.5 -Post Debridement (cm) - Width 1.8 0.5 -Post Debridement (cm) - Depth 0.2 0.1 -Total Square (Post) (cm) 3.60 0.25 -Area of Debridement (cm) - Length 2.0 0.5 -Area of Debridement (cm) - Width 1.8 0.5 -Total Square (Area) (cm) 3.60 0.25 -Tunneling No No -Undermining/Tunneling No No -Circular Undermining No No -Wound/Ulcer Outcome Not Healed Not Healed -Ulcer Cleansing Rinsed/ Rinsed/ Irrigated with Irrigated with Saline Saline -Foul Odor after Cleansing No No -Bioengineered Tissue No No -Bleeding Controlled with Pressure,Silver Pressure Nitrate -Treatment Response Procedure Procedure Tolerated Well Tolerated Well -Offloading Yes Yes -Type of Offloading Surgical Shoe Surgical Shoe -Debridement - Subq, 1st 20sq cm Yes Yes Pain Scale: 0-10 Numeric Is Patient Pain Free? Yes Yes WC - Nurse 3 - General Ulcer D/C NN Start: 06/07/23 14:21 Freq: Status: Active Protocol: Activity Type Activity Date Activity User E-sign Co-sign Detail Recorded Client Recorded Date Recorded By Document 06/07/23 15:47 KW Desktop 06/07/23 15:48 KW Document 06/14/23 16:06 BMF Desktop 06/14/23 16:08 BMF Edit Result 06/14/23 16:06 BMF (1) Desktop 06/14/23 16:09 BMF (1) Right - Tubular Bandage Double Layer => Single Layer 06/07/23 06/14/23 15:47 16:06 Wound Care Center Nurse 3 #1 RT PLANTAR -Ulcer Cleansing Rinsed/ Irrigated with Saline -Foul Odor after Cleansing No -Other Dressing betadine betadine gauze -Primary Dressing Covered/Secured with Dry Gauze & Dry Gauze & Roll Gauze, Roll Gauze, Secured with Secured with Tape Tape -Other Covering drsg per CP RN Left -Tubular Bandage Single Layer -Size of Tubigrip Used Size F -Size F ($) 1 Right -Tubular Bandage Single Layer Single Layer -Size of Tubigrip Used Size F Size F -Size F ($) 1 1 -Other applied per CP RN Treatment Response Procedure Tolerated Well Pain Scale: 0-10 Numeric Is Patient Pain Free? Yes Yes WC - Visit Discharge Discharge Condition Stable Stable Ambulatory Status Wheelchair Wheelchair Transportation Private Auto Private Auto Accompanied by Medication Reconcilliation completed & No provided to patient/care provider Clinical Summary of Care Provided Yes Assessment/Plan Assessment/Plan (1) Non-pressure chronic ulcer of other part of right foot with fat layer exposed: CODE(S): L97.512 - Non-pressure chronic ulcer of other part of right foot with fat layer exposed PLAN: Patient was examined and evaluated. All findings were discussed with the patient. All questions were answered to the patient's satisfaction. Excisional debridement down to and including subcutaneous tissue with a # 3 mm dermal curette to the plantar foot without incident. Predebridement measurement is callus. Postdebridement measurement is 0.5 x 0.5 x 0.1 cm. The right lower extremities were cleaned and patted dry. The ulceration was dressed with Betadine paint and dry sterile dressing followed by offloading pad. Patient was placed in compression wrap/Tubigrip. Patient educated to continue strict blood sugar control. Educated patient continue to wear offloading pad never ambulatory at home or when out. Review of the patient's right foot radiographs show no evidence of periosteal reaction or concern for osteomyelitis of the sesamoid apparatus. There is evidence of intact status post medial lateral column being secondary to Charcot reconstruction by outside provider. In regards for surgical intervention recommendation I do recommend first metatarsophalangeal joint arthrodesis however the patient does have bolts and the first ray will make this rather difficult to perform. Recommend the patient to follow-up with her orthopedic surgeon for already planned surgery to her right foot once her wound is healed. Patient was understanding of this. Follow-up at the wound care center with Dr. Carrasco in 1 week. (2) Other specified peripheral vascular diseases: CODE(S): I73.89 - Other specified peripheral vascular diseases (3) Lymphedema: CODE(S): I89.0 - Lymphedema, not elsewhere classified (4) Chronic painful diabetic polyneuropathy: CODE(S): E11.42 - Type 2 diabetes mellitus with diabetic polyneuropathy (5) Charcot's joint of right foot: CODE(S): M14.671 - Charcot's joint, right ankle and foot
--- NOTE | 2023-06-20 14:05 | ART_ITS ---
Reason For Study: RLE Wound Procedure A bilateral lower extremity continuous wave Doppler with analog waveform analysis,segmental pressures,and ankle brachial indexes without exercise. Left Segmental Pressures Left brachial= 180mmHg. Left posterior tibial artery = >254mmHg. Left dorsalis pedis artery = >254mmHg. Left digit = 130 mmHg. The left posterior tibial artery waveforms are triphasic. The left dorsalis pedis waveforms are triphasic. Right Segmental Pressures Right brachial= 185mmHg. Right posterior tibial artery = >254mmHg. Right dorsalis pedis artery = >254mmHg. The right posterior tibial artery waveforms are biphasic. The right dorsalis pedis waveforms are biphasic. Indices The right ankle brachial index by the posterior tibial artery is N/C. The right ankle brachial index by the dorsalis pedis is N/C. The left ankle brachial index by the posterior tibial artery is N/C. The left ankle brachial index by the dorsalis pedis is N/C. The left digital-brachial index is 0.70. VL/Lower Ext Art Exam w/o Exercis Interpretation Summary Biphasic Doppler waveforms are noted at ankle level on the right. Triphasic Dop pler waveforms are noted at ankle level on the left. Pulse-volume recordings appear satisfactory a t low thigh, calf, ankle, and digital level bilaterally. Resting ankle-brachial indices could not be determined on either side due to the non-compressibility of the vasculature at ankle level bi laterally. The right digital-brachial index was not determined due to the presence of wound bandages . The left digital- brachial index is mildly diminished. There is evidence of arterial calcification at ankle level bilaterally. Arteria l flow appears normal at ankle level bilaterally. Arterial flow at digital level on the right was not fully assessed due to the presence of a wound bandage. There is evidence of mild arterial occlusiv e disease at digital level on the left. Ordering Physician: Amadeo Carrasco Referring Physician: Bela Espitia Performed By: Lucius Smiley RVT
--- NOTE | 2023-06-20 14:05 | VDLE_ITS ---
Reason For Study: BLE EDEMA RIGHT LEFT CFV is compressible, spontaneous, phasic, CFV is compressible, spontaneous, phasic, competent and demonstrates normal competent, and demonstrates normal augmentation. augmentation. FV is compressible, spontaneous, phasic, FV is compressible, spontaneous, phasic, competent and demonstrates normal competent and demonstrates normal augmentation. augmentation. POP V is compressible, spontaneous, phasic, POP V is compressible, spontaneous, phasic, competent and demonstrates normal competent and demonstrates normal augmentation. augmentation. T/P Trunk is compressible. T/P Trunk is compressible. PTV is compressible. PTV is compressible. RT PerV is compressible. LT PerV is compressible. SFJ is competent and measures 0.75 cm. SFJ is competent and measures 0.81 cm. GSV proximal thigh measures 0.39 x 0.44 cm. GSV proximal thigh measures 0.48 x 0.47 cm. GSV at knee measures 0.68 x 0.59 cm. GSV at knee measures 0.41 x 0.40 cm. GSV above knee is competent. GSV is competent throughout. GSV below knee is INCOMPETENT for greater SSV proximal calf is competent and measures than 0.5 seconds. 0.32 x 0.33 cm. ASV proximal calf is INCOMPETENT for greater SSV is partially compressible with than 0.5 seconds and measures 0.67 x 0.70 cm. hyperechoic intraluminal echoes. Finding is SSV proximal calf is competent and measures consistent with chronic SVT. 0.39 x 0.38 cm. SSV is partially compressible with hyperechoic intraluminal echoes. Finding is consistent with chronic SVT. Anechoic non-vascularized structure within the proximal medial thigh measuring approximately 3.50cm x 1.73cm is noted. Procedure Exam performed in department. This is a venous duplex using B-mode, color flow and spectral Doppler. The exam was diagnostic. The study was technically difficult due to patient positioning and BLE edema. VL/Venous Duplex US - Moe Extrem Interpretation Summary Deep veins of the lower extremities are bilaterally patent and compressible seg mentally. There is no evidence of deep vein thrombosis on either side. Valvular competence appears in tact within the proximal deep venous systems bilaterally. The great saphenous veins appear bila terally patent and compressible segmentally. Sapheno-femoral junctions are bilaterally competent . The right great saphenous vein appears competent above the knee. The right great saphenous vein appears incompetent below the knee. The left great saphenous vein appears segmentally competent. Ch ronic venous changes are noted in the small saphenous veins bilaterally. An accessory saphenous vein in the right proximal calf is incompetent. A non-vascular, anechoic structure is noted in th e right proximal, medial thigh, measuring 3.50 cm x 1.73 cm. This structure appears to be cystic in nature. Clinical correlation is advised. Ordering Physician: Amadeo Carrasco Referring Physician: Bela Espitia Performed By: Lucius Smiley RVT
[2023-06-21 15:50] VITALS: RESP 18; BMI 65.3
--- NOTE | 2023-06-21 16:49 | PN.PCM_ITS ---
History of Present Illness Date of Service: 06/21/23 Chief Complaint: Full-thickness wound right foot History of Wound: Chronic full-thickness wound right foot Progress of Wound: Ms. Vail is a 73-year-old diabetic female presenting to wound care center today for follow-up evaluation of full-thickness ulceration to the plantar aspect of her right foot at the level of the plantar first metatarsal phalangeal joint. Patient has been seen by multiple outside providers orthopedic surgeon and legal recovery specialist where she has had extensive workup with MRI plain film x-ray, skin graft substitute and multiple excisional debridements. Patient does have a offloading orthotic in her right foot but admits that it is not offloading correctly. She does have lymphedema secondary to a hip fracture which she had repaired by an outside provider. The patient is presenting today for a second opinion to the full-thickness ulceration to the plantar aspect of the right foot. She admits her blood sugar is controlled. Denies trauma. Denies constitutional symptoms. No other pedal complaints at this time. Subjective Subjective Ms. Vail is a 71-year-old diabetic female presenting to wound care center at [facility] follow-up evaluation of full-thickness wound to the plantar aspect of her right foot. Patient has been compliant using her offloading pad and applying Betadine paint and Band-Aid to the area. She admits that the wound is smaller. Her blood sugar has been well-controlled with the highest being 160 mg/dL. She denies any new onset of trauma. She denies any new open lesions or abrasions. Denies constitutional symptoms. No other pedal complaints at this time. Objective Data Objective Data Vital Signs: Vital Signs Temp Pulse Resp BP O2 Del Method 98.3 F 83 18 157/70 H Room Air 06/14/23 15:30 06/14/23 15:30 06/21/23 15:50 06/14/23 15:30 06/21/23 15:50 Oxygen Delivery Method Room Air Weight: 195 kg Body Mass Index (BMI) 65.3 Lab / Micro Data Micro: Microbiology 06/07/23 15:34 Wound - Right Foot Gram Stain - Final 06/07/23 15:34 Wound - Right Foot Wound Culture - Final Corynebacterium minutissimum 06/07/23 15:34 Wound - Right Foot Anaerobic Culture - Final Anaerobic cocci Radiography Diagnostic Testing: Radiology Impression Extremity Arterial Study 06/20/23 14:05 Interpretation Summary Biphasic Doppler waveforms are noted at ankle level on the right. Triphasic Doppler waveforms are noted at ankle level on the left. Pulse-volume recordings appear satisfactory at low thigh, calf, ankle, and digital level bilaterally. Resting ankle-brachial indices could not be determined on either side due to the non-compressibility of the vasculature at ankle level bilaterally. The right digital-brachial index was not determined due to the presence of wound bandages. The left digital- brachial index is mildly diminished. There is evidence of arterial calcification at ankle level bilaterally. Arterial flow appears normal at ankle level bilaterally. Arterial flow at digital level on the right was not fully assessed due to the presence of a wound bandage. 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 Ordering Physician: Amadeo Carrasco Referring Physician: Bela Espitia Performed By: Lucius Smiley RVT Venous Doppler Study 06/20/23 14:05 Interpretation Summary Deep veins of the lower extremities are bilaterally patent and compressible segmentally. There is no evidence of deep vein thrombosis on either side. Valvular competence appears in tact within the proximal deep venous systems bilaterally. The great saphenous veins appear bilaterally patent and compressible segmentally. Sapheno-femoral junctions are bilaterally competent . The right great saphenous vein appears competent above the knee. The right great saphenous vein appears incompetent below the knee. The left great saphenous vein appears segmentally competent. Chronic venous changes are noted in the small saphenous veins bilaterally. An accessory saphenous vein in the right proximal calf is incompetent. A non-vascular, anechoic structure is noted in the right proximal, medial thigh, measuring 3.50 cm x 1.73 cm. This structure appears to be cystic in nature. Clinical correlation is advised. Ordering Physician: Amadeo Carrasco Referring Physician: Bela Espitia Performed By: Lucius Smiley, T Physical Exam Narrative Vascular: DP and PT pulses are palpable. CFT is brisk to all digits bilateral. Nonpitting edema appreciated to the bilateral lower extremity. Evidence of cobblestone distribution secondary to lymphedema to the bilateral lower extremity. Skin temperature gradient warm to warm from proximal ankle to distal digit. No focal increase is appreciated. Neurological: Light touch intact. Protective sensation is diminished. Patient does not respond to painful stimuli. Dermatological: Full-thickness ulceration to the plantar aspect of the right foot at the level of the subfirst metatarsal phalangeal joint. Full-thickness ulceration measures 0.3 x 0.3 x 0.1 cm. Periwound maceration malodor has im proved. No drainage. No probe to bone. Excisional debridement down to and including subcutaneous tissue with a # 3 mm dermal curette to the plantar foot without incident. Predebridement measurement is callus. Postdebridement measurement is 0.3 x 0.3 x 0.1 cm. Musculoskeletal: Muscle strength 5/5 in all quadrants bilateral. No pain to palpation of full-thickness ulceration to the subfirst metatarsal phalangeal joint the right foot. No pain with calf compression. Debridement Note Debridement Note Debridement Free Text: Excisional debridement down to and including subcutaneous tissue with a # 3 mm dermal curette to the plantar foot without incident. Predebridement measurement is callus. Postdebridement measurement is 0.3 x 0.3 x 0.1 cm. Post-Debridement Measurements and Additional Note: Post-Debridement Measurements/Treatment WC - Nurse 1 - General Ulcer Assessment Start: 06/07/23 14:21 Freq: Status: Active Protocol: WC.LOWEXT Activity Type Activity Date Activity User E-sign Co-sign Detail Recorded Client Recorded Date Recorded By Document 06/07/23 14:21 KW Desktop 06/07/23 14:59 KW Document 06/14/23 15:30 BMF Desktop 06/14/23 15:35 BMF Document 06/21/23 15:50 KW Desktop 06/21/23 15:56 KW 06/07/23 06/14/23 06/21/23 14:21 15:30 15:50 WC - Today's Visit Information Type of service Initial Visit Follow-up Visit Follow-up Visit (Physician/RESIDENTIAL SUPPORT WORKER (Physician/RESIDENTIAL SUPPORT WORKER ) ) Arrival Mode Wheelchair Wheelchair Transfer Assistance Other Transfer Assist (Other) 2 Accompanied by Patient Identification Verified (Name & Yes Yes Yes ) Patient Requires Transmission-Based No Precautions Finger Stick Blood Sugar(mg/dl) (if 117 indicated): Blood Sugar Stated by Patient Height and Weight Height 5 ft 8 in Weight 195 kg Weight in Pounds 429.9 lbs Weight Measurement Method Estimated by Patient Body Mass Index (BMI) 65.3 65.3 65.3 BMI Classification Obese Obese Obese BSA - Rafa 2.83 Vital Signs Temperature (97.8 F-99.1 F) 98.3 F Temperature Source Temporal Pulse Rate (60-100) 79 83 Pulse Location Monitor Monitor Respiratory Rate (12-18) 18 16 18 Respiratory rate source Observation Observation Observation Oxygen Delivery Method Room Air Room Air Room Air Blood Pressure (90/60-120/80) 155/88 H 157/70 H Blood Pressure Mean (mm Hg) 110 99 Source Monitor Monitor Position Semi-Fowlers Sitting Blood Pressure Location Left Arm Right Arm History Since Last Visit- (Skip if this is Patient's initial visit) Have you changed medications since your No No last visit? Any new allergies or adverse reactions No No Had a fall/change in ADL's that may No No increase risk of falls Signs or symptoms of abuse and/or No No neglect since last visit Have you been in the hospital since your No No last visit? Has dressing in place as prescribed Yes Yes Has compression in place as prescribed Yes Yes Has offloadiing in place as prescribed N/A N/A Experienced any changes in pain level or No No management Left Footwear Regular Shoe Custom Shoe Regular Shoe Right Footwear Regular Shoe Custom Shoe Regular Shoe Pain Scale: 0-10 Numeric Is Patient Pain Free? Yes Yes Yes Lower Extremity Assessment/ Foot Assessment/ Toe Nail Assessment Left -Posterior Tibial Doppler Monophasic -Dorsalis Pedis Doppler Multiphasic -Capillary Refill Greater than 3 Seconds -Thick Yes -Discolored Yes -Deformed Yes -Improper Length & Hygeine Yes Right -Posterior Tibial Doppler Monophasic -Dorsalis Pedis Doppler Monophasic -Hair Growth on Legs No -Hair Growth on Toes No -Temperature of Extremity Cool -Capillary Refill Less than 3 Seconds -Thick Yes -Discolored Yes -Deformed Yes -Improper Length & Hygeine No Communication Assessment Preferred language Romanian Eviscerator Required No Able to Read Yes Able to Write Yes Communication Tools None Caregiver Communication Skills No Impairment Impairment Right Hearing Abillity Normal Left Hearing Abillity Normal Visual Assistive Devices None WC - Nurse 1 - General Ulcer Measurement Start: 06/07/23 14:21 Freq: Status: Active Protocol: Activity Type Activity Date Activity User E-sign Co-sign Detail Recorded Client Recorded Date Recorded By Document 06/07/23 14:21 KW Desktop 06/07/23 14:59 KW Document 06/14/23 15:30 BMF Desktop 06/14/23 15:35 BMF Edit Result 06/14/23 15:30 BMF (1) Desktop 06/14/23 15:36 BMF Document 06/21/23 15:50 KW Desktop 06/21/23 15:56 KW (1) Lower Limb Edema Present => Yes Right Calf (cm) => 43 Right Ankle (cm) => 31.5 06/07/23 06/14/23 06/21/23 14:21 15:30 15:50 Wound Center Nurse 1 #1 RT PLANTAR -Combined with other wound No -Current Size (cm) - Length 0.1 0.1 0.1 -Current Size (cm) - Width 0.1 0.1 0.3 -Current Size (cm) - Depth 0.2 0.1 0.1 -Total Square Cm 0.01 0.01 0.03 -Date of Last Picture (Recall this 06/07/23 field) -Epithelialization Large 67-100% -Tunneling Yes No -Tunneling Position (O'clock) 9 -Tunneling Distance (cm) 3 -Undermining/Tunneling No -Circular Undermining No -Exudate Amt Medium None Present -Exudate Type Serosanguineous -Granulation Amt Large (67-100%) -Granulation Quality [place] -Texture (Raegan-wound Skin Appearance) Assessed Assessed,Callus Assessed,Callus -Moisture (Raegan-wound Skin Appearance) Assessed Assessed,Dry/ Assessed,Dry/ Scaly Scaly -Color (Raegan-wound Skin Appearance) Assessed Assessed Assessed -Temperature (Raegan-wound Skin No Abnormality No Abnormality No Abnormality Appearance) (Pt Warm) (Pt Warm) (Pt Warm) -Tenderness on Palpation (Raegan-wound No No Skin Appearance) -Ulcer Cleansing Soap and Water Rinsed/ Rinsed/ Irrigated with Irrigated with Saline Saline -Foul Odor after Cleansing No No No -Anesthetic Used 5% Lidocaine 5% Lidocaine 5% Lidocaine Gel Gel Gel Lower Limb Edema Present Yes Right Calf (cm) 44 43 44.5 Right Ankle (cm) 30.5 31.5 32.5 Left Calf (cm) 42 Left Ankle (cm) 28 WC - Nurse 2 - General Ulcer CM Notes Start: 06/07/23 14:21 Freq: Status: Active Protocol: Activity Type Activity Date Activity User E-sign Co-sign Detail Recorded Client Recorded Date Recorded By Document 06/07/23 15:23 [employer] Laptop 06/07/23 15:45 [employer] Document 06/14/23 15:43 [employer] Laptop 06/14/23 15:53 [employer] Document 06/21/23 16:16 [employer] Laptop 06/21/23 16:17 [employer] 06/07/23 06/14/23 06/21/23 15:23 15:43 16:16 Wound Center Nurse 2 #1 RT PLANTAR -Time 15:25 15:43 16:16 -Correct Patient Yes Yes Yes -Correct Side, Site, Position Yes Yes Yes -Correct Procedure Yes Yes Yes -Procedure Performed Yes Yes Yes -Type of Procedure Debridement Debridement Debridement -Clinical Debridement Subcutaneous Subcutaneous Subcutaneous -Tissue Removed Subcutaneous Subcutaneous Subcutaneous -Post Debridement (cm) - Length 2.0 0.5 0.3 -Post Debridement (cm) - Width 1.8 0.5 0.3 -Post Debridement (cm) - Depth 0.2 0.1 0.1 -Total Square (Post) (cm) 3.60 0.25 0.09 -Area of Debridement (cm) - Length 2.0 0.5 0.3 -Area of Debridement (cm) - Width 1.8 0.5 0.3 -Total Square (Area) (cm) 3.60 0.25 0.09 -Tunneling No No No -Undermining/Tunneling No No No -Circular Undermining No No No -Wound/Ulcer Outcome Not Healed Not Healed Not Healed -Ulcer Cleansing Rinsed/ Rinsed/ Rinsed/ Irrigated with Irrigated with Irrigated with Saline Saline Saline -Foul Odor after Cleansing No No No -Bioengineered Tissue No No No -Bleeding Controlled with Pressure,Silver Pressure Pressure Nitrate -Treatment Response Procedure Procedure Procedure Tolerated Well Tolerated Well Tolerated Well -Offloading Yes Yes No -Type of Offloading Surgical Shoe Surgical Shoe -Debridement - Subq, 1st 20sq cm Yes Yes Yes Pain Scale: 0-10 Numeric Is Patient Pain Free? Yes Yes Yes WC - Nurse 3 - General Ulcer D/C NN Start: 06/07/23 14:21 Freq: Status: Active Protocol: Activity Type Activity Date Activity User E-sign Co-sign Detail Recorded Client Recorded Date Recorded By Document 06/07/23 15:47 KW Desktop 06/07/23 15:48 KW Document 06/14/23 16:06 BMF Desktop 06/14/23 16:08 BMF Edit Result 06/14/23 16:06 BMF (1) Desktop 06/14/23 16:09 BMF Document 06/21/23 16:27 JF Laptop 06/21/23 16:28 JF (1) Right - Tubular Bandage Double Layer => Single Layer 06/07/23 06/14/23 06/21/23 15:47 16:06 16:27 Wound Care Center Nurse 3 #1 RT PLANTAR -Ulcer Cleansing Rinsed/ Soap and Water Irrigated with Saline -Foul Odor after Cleansing No No -Other Dressing betadine betadine gauze -Primary Dressing Covered/Secured with Dry Gauze & Dry Gauze & Dry Gauze & Roll Gauze, Roll Gauze, Roll Gauze, Secured with Secured with Secured with Tape Tape Tape -Other Covering drsg per CP RN -Wound Comment(s) betadine gauze Left -Tubular Bandage Single Layer -Size of Tubigrip Used Size F -Size F ($) 1 Right -Lotion applied to leg before No compression wrap -Tubular Bandage Single Layer Single Layer Single Layer -Size of Tubigrip Used Size F Size F Size F -Size F ($) 1 1 1 -Other applied per CP RN Treatment Response Procedure Tolerated Well Pain Scale: 0-10 Numeric Is Patient Pain Free? Yes Yes Yes WC - Visit Discharge Discharge Condition Stable Stable Stable Ambulatory Status Wheelchair Wheelchair Wheelchair Transportation Private Auto Private Auto Private Auto Accompanied by Medication Reconcilliation completed & No provided to patient/care provider Clinical Summary of Care Provided Yes Yes Assessment/Plan Assessment/Plan (1) Non-pressure chronic ulcer of other part of right foot with fat layer exposed: CODE(S): L97.512 - Non-pressure chronic ulcer of other part of right foot with fat layer exposed PLAN: Patient was examined and evaluated. All findings were discussed with the patient. All questions were answered to the patient's satisfaction. Excisional debridement down to and including subcutaneous tissue with a # 3 mm dermal curette to the plantar foot without incident. Predebridement measurement is callus. Postdebridement measurement is 0.3 x 0.3 x 0.1 cm. Reviewed the patient's vascular and arterial studies which are satisfactory for the patient's current condition. I am clearing the patient to move forward with intervention to the right lower extremity per her orthopedic surgeon. Patient was given copies of her vascular studies to present to her orthopedic surgeon who she will be seeing this Monday for surgical consultation. Patient will continue to offload her right first metatarsophalangeal joint with quarter inch felt cut out pad. Follow-up at the wound care center with Dr. Carrasco in 1 week. (2) Lymphedema: CODE(S): I89.0 - Lymphedema, not elsewhere classified (3) Other specified peripheral vascular diseases: CODE(S): I73.89 - Other specified peripheral vascular diseases
== END 2023-06-27 23:59 | disposition home or self-care (01) ==
LOC: WC 15:30
PROVIDERS: PCP Internal Medicine; Referring Provider Internal Medicine; Visit Provider Podiatrist Foot & Ankle Surgery
DX: E11.621 Type 2 diabetes mellitus with foot ulcer (principal); L97.512 Non-pressure chronic ulcer of other part of right foot with fat layer exposed; E11.51 Type 2 diabetes mellitus with diabetic peripheral angiopathy without gangrene; E11.42 Type 2 diabetes mellitus with diabetic polyneuropathy; I89.0 Lymphedema, not elsewhere classified; Z79.82 Long term (current) use of aspirin; Z79.899 Other long term (current) drug therapy; M14.671 Charcot's joint, right ankle and foot; R60.0 Localized edema
CPT/HCPCS: 11042; 87070; 87075; 87077; 87205; 93923; 93970; 99214; G0463

== ENCOUNTER 2023-07-26 14:53 | Outpatient (RCR) | payer MEDICARE, OTHER, SELFPAY ==
[2023-06-28 00:30] VITALS: BP 157/70; PULSE 83; RESP 18; TEMP 36.8; BMI 65.3
[2023-07-26 15:02] VITALS: BP 147/64; PULSE 97; RESP 18; TEMP 36.2; BMI 65.3
--- NOTE | 2023-07-26 17:00 | PCM.WC.PN ---
History of Present Illness Date of Service: 07/26/23 Chief Complaint: Full-thickness wound right foot History of Wound: Chronic full-thickness wound right foot Subjective Subjective Ms. Vail is a 73-year-old diabetic female presenting to wound care center today for follow-up evaluation of full-thickness ulceration plantar aspect of the right foot at the level of the first metatarsal phalangeal joint. She has been doing home dressing changes with Betadine paint and Band-Aid. She did get her orthotics adjusted from the antibiotic. She plans for surgical intervention with her orthopedic surgeon in the next couple of weeks. She denies trauma. Denies constitutional symptoms. No other pedal complaints at this time. Objective Data Objective Data Vital Signs: Vital Signs Temp Pulse Resp BP 97.1 F L 97 18 147/64 H 07/26/23 15:02 07/26/23 15:02 07/26/23 15:02 07/26/23 15:02 Weight: 195 kg Body Mass Index (BMI) 65.3 Physical Exam Narrative Vascular: DP and PT pulses are palpable. CFT is brisk to all digits bilateral. Nonpitting edema appreciated to the bilateral lower extremity. Evidence of cobblestone distribution secondary to lymphedema to the bilateral lower extremity. Skin temperature gradient warm to warm from proximal ankle to distal digit. No focal increase is appreciated. Neurological: Light touch intact. Protective sensation is diminished. Patient does not respond to painful stimuli. Dermatological: Full-thickness ulceration to the plantar aspect of the right foot at the level of the subfirst metatarsal phalangeal joint. Full-thickness ulceration measures 0.2 x 0.4 x 0.1 cm. Periwound maceration malodor has improved. No drainage. No probe to bone. Excisional debridement down to and including subcutaneous tissue with a # 3 mm dermal curette to the plantar foot without incident. Predebridement measurement is 0.2 x 0.2 x 0.1 cm. Postdebridement measurement is 0.2 x 0.4 x 0.1 cm. Musculoskeletal: Muscle strength 5/5 in all quadrants bilateral. No pain to palpation of full-thickness ulceration to the subfirst metatarsal phalangeal joint the right foot. No pain with calf compression. Debridement Note Debridement Note Debridement Free Text: Excisional debridement down to and including subcutaneous tissue with a # 3 mm dermal curette to the plantar foot without incident. Predebridement measurement is 0.2 x 0.2 x 0.1 cm. Postdebridement measurement is 0.2 x 0.4 x 0.1 cm. Post-Debridement Measurements and Additional Note: Post-Debridement Measurements/Treatment MARQUEZ - Nurse 1 - General Ulcer Assessment Start: 07/26/23 15:00 Freq: Status: Active Protocol: JENSEN Activity Type Activity Date Activity User E-sign Co-sign Detail Recorded Client Recorded Date Recorded By Document 07/26/23 15:02 DL [id number] 07/26/23 15:10 DL 07/26/23 15:02 WC - Today's Visit Information Type of service Follow-up Visit (Physician/CONTENT PRODUCER ) Arrival Mode Ambulatory, Wheelchair Transfer Assistance None Patient Identification Verified (Name & Yes ) Patient Requires Transmission-Based No Precautions Finger Stick Blood Sugar(mg/dl) (if not checked indicated): Blood Sugar Stated by Patient Height and Weight Body Mass Index (BMI) 65.3 BMI Classification Obese Vital Signs Temperature (97.8 F-99.1 F) 97.1 F L Temperature Source Temporal Pulse Rate (60-100) 97 Pulse Location Apical Respiratory Rate (12-18) 18 Respiratory rate source Observation Blood Pressure (90/60-120/80) 147/64 H Blood Pressure Mean (mm Hg) 91 Source Monitor History Since Last Visit- (Skip if this is Patient's initial visit) Have you changed medications since your No last visit? Any new allergies or adverse reactions No Had a fall/change in ADL's that may No increase risk of falls Signs or symptoms of abuse and/or No neglect since last visit Has dressing in place as prescribed Yes Has compression in place as prescribed No Has offloadiing in place as prescribed N/A Experienced any changes in pain level or No management Right Footwear Regular Shoe Pain Scale: 0-10 Numeric Is Patient Pain Free? Yes MARQUEZ - Nurse 1 - General Ulcer Measurement Start: 07/26/23 15:00 Freq: Status: Active Protocol: Activity Type Activity Date Activity User E-sign Co-sign Detail Recorded Client Recorded Date Recorded By Document 07/26/23 15:02 DL ..[email or web address] 07/26/23 15:10 DL 07/26/23 15:02 Wound Center Nurse 1 #1 RT PLANTAR -Current Size (cm) - Length 0.1 -Current Size (cm) - Width 0.1 -Current Size (cm) - Depth 0.1 -Total Square Cm 0.01 -Exudate Amt None Present -Wound Margin Thickened -Granulation Amt Large (67-100%) -Granulation Quality Pale,[place] -Necrosis Amt None Present (0 %) -Structure Exposed N/A -Texture (Raegan-wound Skin Appearance) Callus -Moisture (Raegan-wound Skin Appearance) Dry/Scaly -Color (Raegan-wound Skin Appearance) No Abnormality -Temperature (Raegan-wound Skin No Abnormality Appearance) (Pt Warm) -Tenderness on Palpation (Raegan-wound No Skin Appearance) -Ulcer Cleansing Rinsed/ Irrigated with Saline -Foul Odor after Cleansing No Right Calf (cm) 47 Right Ankle (cm) 30.5 WC - Nurse 2 - General Ulcer CM Notes Start: 07/26/23 15:00 Freq: Status: Active Protocol: Activity Type Activity Date Activity User E-sign Co-sign Detail Recorded Client Recorded Date Recorded By Document 07/26/23 15:25 [id number] 07/26/23 15:29 07/26/23 15:25 Wound Center Nurse 2 #1 RT PLANTAR -Time 15:28 -Correct Patient Yes -Correct Side, Site, Position Yes -Correct Procedure Yes -Procedure Performed Yes -Type of Procedure Debridement -Clinical Debridement Subcutaneous -Tissue Removed Subcutaneous -Post Debridement (cm) - Length 0.2 -Post Debridement (cm) - Width 0.4 -Post Debridement (cm) - Depth 0.1 -Total Square (Post) (cm) 0.08 -Area of Debridement (cm) - Length 0.2 -Area of Debridement (cm) - Width 0.4 -Total Square (Area) (cm) 0.08 -Tunneling No -Undermining/Tunneling No -Circular Undermining No -Wound/Ulcer Outcome Not Healed -Ulcer Cleansing Rinsed/ Irrigated with Saline -Foul Odor after Cleansing No -Bioengineered Tissue No -Bleeding Controlled with Pressure -Treatment Response Procedure Tolerated Well -Offloading No -Type of Offloading Other -Other Type of Offloading offloading pad in shoe -Debridement - Subq, 1st 20sq cm Yes Pain Scale: 0-10 Numeric Is Patient Pain Free? Yes WC - Nurse 3 - General Ulcer D/C NN Start: 07/26/23 15:00 Freq: Status: Active Protocol: Activity Type Activity Date Activity User E-sign Co-sign Detail Recorded Client Recorded Date Recorded By Document 07/26/23 15:40 [id number] [id number] 07/26/23 15:42 JF 07/26/23 15:40 Wound Care Center Nurse 3 #1 RT PLANTAR -Ulcer Cleansing Rinsed/ Irrigated with Saline -Foul Odor after Cleansing No -Other Dressing betadine -Primary Dressing Covered/Secured with Dry Gauze, Secured with Tape Left -Stockings Yes Pain Scale: 0-10 Numeric Is Patient Pain Free? Yes WC - Visit Discharge Discharge Condition Stable Ambulatory Status Wheelchair Transportation Private Auto Accompanied by Medication Reconcilliation completed & Yes provided to patient/care provider Clinical Summary of Care Provided Yes Assessment/Plan Assessment/Plan (1) Non-pressure chronic ulcer of other part of right foot with fat layer exposed: CODE(S): L97.512 - Non-pressure chronic ulcer of other part of right foot with fat layer exposed PLAN: Patient was examined and evaluated. All findings were discussed with the patient. All questions were answered to the patient's satisfaction. Excisional debridement down to and including subcutaneous tissue with a # 3 mm dermal curette to the plantar foot without incident. Predebridement measurement is 0.2 x 0.2 x 0.1 cm. Postdebridement measurement is 0.2 x 0.4 x 0.1 cm. Right foot was white clean and patted dry. Betadine paint was applied to the ulceration followed by sterile Band-Aid. Patient will continue daily dressing changes and continue to offload with her new built-up orthotic. She will continue strict blood sugar control as she prepares for surgery in 3 weeks. Follow-up at the wound care center with Dr. Carrasco in 1 week. (2) Other specified peripheral vascular diseases: CODE(S): I73.89 - Other specified peripheral vascular diseases
== END 2023-07-28 23:59 | disposition home or self-care (01) ==
LOC: WC 14:53
PROVIDERS: PCP Internal Medicine; Referring Provider Internal Medicine; Visit Provider Podiatrist Foot & Ankle Surgery
DX: E11.621 Type 2 diabetes mellitus with foot ulcer (principal); L97.512 Non-pressure chronic ulcer of other part of right foot with fat layer exposed; E11.51 Type 2 diabetes mellitus with diabetic peripheral angiopathy without gangrene; I89.0 Lymphedema, not elsewhere classified; R60.0 Localized edema
CPT/HCPCS: 11042

== ENCOUNTER 2023-08-02 14:30 | Outpatient (RCR) | payer MEDICARE, OTHER, SELFPAY ==
[2023-07-29 01:58] VITALS: BP 157/70; PULSE 83; RESP 18; TEMP 36.8; BMI 65.3
[2023-08-02 14:38] VITALS: BP 148/56; PULSE 79; RESP 16; TEMP 37.2; BMI 65.3
--- NOTE | 2023-08-02 15:33 | PN.PCM_ITS ---
History of Present Illness Date of Service: 08/02/23 Chief Complaint: Full-thickness wound right foot History of Wound: Chronic full-thickness wound right foot Subjective Subjective Ms. Vail is a 73-year-old diabetic female presenting to wound care center today for follow-up evaluation of full-thickness ulceration plantar aspect of the right foot at the level of the first metatarsal phalangeal joint. She has been doing home dressing changes with Betadine paint and Band-Aid. She did get her orthotics adjusted from the antibiotic. She plans for surgical intervention with her orthopedic surgeon in 2 weeks. She denies trauma. Denies constitutional symptoms. No other pedal complaints at this time. Objective Data Objective Data Vital Signs: Vital Signs Temp Pulse Resp BP O2 Del Method 98.9 F 79 16 148/56 H Room Air 08/02/23 14:38 08/02/23 14:38 08/02/23 14:38 08/02/23 14:38 08/02/23 14:38 Oxygen Delivery Method Room Air Weight: 195 kg Body Mass Index (BMI) 65.3 Physical Exam Narrative Vascular: DP and PT pulses are palpable. CFT is brisk to all digits bilateral. Nonpitting edema appreciated to the bilateral lower extremity. Evidence of cobblestone distribution secondary to lymphedema to the bilateral lower extremity. Skin temperature gradient warm to warm from proximal ankle to distal digit. No focal increase is appreciated. Neurological: Light touch intact. Protective sensation is diminished. Patient does not respond to painful stimuli. Dermatological: Full-thickness ulceration to the plantar aspect of the right foot at the level of the subfirst metatarsal phalangeal joint. Full-thickness ulceration measures 0.1 x 0.2 x 0.1 cm. Periwound maceration malodor has improved. No drainage. No probe to bone. Excisional debridement down to and including subcutaneous tissue with a # 3 mm dermal curette to the plantar foot without incident. Predebridement measurement is callus. Postdebridement measurement is 0.1 x 0.2 x 0.1 cm. Musculoskeletal: Muscle strength 5/5 in all quadrants bilateral. No pain to palpation of full-thickness ulceration to the subfirst metatarsal phalangeal joint the right foot. No pain with calf compression. Debridement Note Debridement Note Debridement Free Text: Excisional debridement down to and including subcutaneous tissue with a # 3 mm dermal curette to the plantar foot without incident. Predebridement measurement is callus. Postdebridement measurement is 0.1 x 0.2 x 0.1 cm. Post-Debridement Measurements and Additional Note: Post-Debridement Measurements/Treatment - Nurse 1 - General Ulcer Assessment Start: 08/02/23 14:34 Freq: Status: Active Protocol: JENSEN Activity Type Activity Date Activity User E-sign Co-sign Detail Recorded Client Recorded Date Recorded By Document 08/02/23 14:38 [facility] [id number] 08/02/23 14:39 [facility] 08/02/23 14:38 - Today's Visit Information Type of service Follow-up Visit (Physician/HOSPITAL LABORATORY TECHNICIAN ) Arrival Mode Stretcher Transfer Assistance Other Transfer Assist (Other) 1 Accompanied by Patient Identification Verified (Name & Yes ) Patient Requires Transmission-Based No Precautions Height and Weight Body Mass Index (BMI) 65.3 BMI Classification Obese Vital Signs Temperature (97.8 F-99.1 F) 98.9 F Temperature Source Temporal Pulse Rate (60-100) 79 Pulse Location Monitor Respiratory Rate (12-18) 16 Respiratory rate source Observation Oxygen Delivery Method Room Air Blood Pressure (90/60-120/80) 148/56 H Blood Pressure Mean (mm Hg) 86 Source Monitor Position Sitting Blood Pressure Location Right Arm History Since Last Visit- (Skip if this is Patient's initial visit) Have you changed medications since your No last visit? Any new allergies or adverse reactions No Had a fall/change in ADL's that may No increase risk of falls Signs or symptoms of abuse and/or No neglect since last visit Have you been in the hospital since your No last visit? Has dressing in place as prescribed Yes Has offloadiing in place as prescribed N/A Experienced any changes in pain level or No management Left Footwear Custom Shoe Right Footwear Custom Shoe Pain Scale: 0-10 Numeric Is Patient Pain Free? Yes - Nurse 1 - General Ulcer Measurement Start: 08/02/23 14:34 Freq: Status: Active Protocol: Activity Type Activity Date Activity User E-sign Co-sign Detail Recorded Client Recorded Date Recorded By Document 08/02/23 14:39 [facility] [id number] 08/02/23 14:44 [facility] 08/02/23 14:39 Wound Center Nurse 1 #1 RT PLANTAR -Combined with other wound No -Current Size (cm) - Length 0.1 -Current Size (cm) - Width 0.2 -Current Size (cm) - Depth 0.2 -Total Square Cm 0.02 -Date of Last Picture (Recall this 08/02/23 field) -Photo Taken Yes -Exudate Amt Medium -Exudate Type Serosanguineous -Wound Margin Distinct, Outline Attached -Granulation Amt Large (67-100%) -Granulation Quality Nebo -Slough/Fibrin No -Necrosis Amt None Present (0 %) -Texture (Raegan-wound Skin Appearance) Assessed, Scarring -Moisture (Raegan-wound Skin Appearance) Assessed,Dry/ Scaly -Color (Raegan-wound Skin Appearance) Assessed -Temperature (Raegan-wound Skin No Abnormality Appearance) (Pt Warm) -Tenderness on Palpation (Raegan-wound No Skin Appearance) -Ulcer Cleansing Rinsed/ Irrigated with Saline -Foul Odor after Cleansing No -Anesthetic Used 5% Lidocaine Gel WC - Nurse 2 - General Ulcer CM Notes Start: 08/02/23 14:34 Freq: Status: Active Protocol: Activity Type Activity Date Activity User E-sign Co-sign Detail Recorded Client Recorded Date Recorded By Document 08/02/23 14:55 [id number] 08/02/23 15:01 08/02/23 14:55 Wound Center Nurse 2 -Time 14:55 -Correct Patient Yes -Correct Side, Site, Position Yes -Correct Procedure Yes -Procedure Performed Yes -Type of Procedure Debridement -Clinical Debridement Subcutaneous -Tissue Removed Subcutaneous -Post Debridement (cm) - Length 0.1 -Post Debridement (cm) - Width 0.2 -Post Debridement (cm) - Depth 0.1 -Total Square (Post) (cm) 0.02 -Area of Debridement (cm) - Length 0.1 -Area of Debridement (cm) - Width 0.2 -Total Square (Area) (cm) 0.02 -Tunneling No -Undermining/Tunneling No -Circular Undermining No -Wound/Ulcer Outcome Not Healed -Ulcer Cleansing Rinsed/ Irrigated with Saline -Foul Odor after Cleansing No -Bioengineered Tissue No -Bleeding Controlled with Pressure -Treatment Response Procedure Tolerated Well -Offloading No -Assistive Device(s) Wheelchair -Debridement - Subq, 1st 20sq cm Yes Pain Scale: 0-10 Numeric Is Patient Pain Free? Yes WC - Nurse 3 - General Ulcer D/C NN Start: 08/02/23 14:34 Freq: Status: Active Protocol: Activity Type Activity Date Activity User E-sign Co-sign Detail Recorded Client Recorded Date Recorded By Document 08/02/23 15:17 [facility] [id number] 08/02/23 15:17 [facility] 08/02/23 15:17 Wound Care Center Nurse 3 #1 RT PLANTAR -Ulcer Cleansing Rinsed/ Irrigated with Saline -Foul Odor after Cleansing No -Other Dressing BETADINE -Primary Dressing Covered/Secured with Dry Gauze, Secured with Tape Treatment Response Procedure Tolerated Well Pain Scale: 0-10 Numeric Is Patient Pain Free? Yes WC - Visit Discharge Discharge Condition Stable Ambulatory Status Wheelchair Transportation Private Auto Accompanied by Assessment/Plan Assessment/Plan (1) Non-pressure chronic ulcer of other part of right foot with fat layer exposed: CODE(S): L97.512 - Non-pressure chronic ulcer of other part of right foot with fat layer exposed PLAN: Patient was examined and evaluated. All findings were discussed with the patient. All questions were answered to the patient's satisfaction. Excisional debridement down to and including subcutaneous tissue with a # 3 mm dermal curette to the plantar foot without incident. Predebridement measurement is callus. Postdebridement measurement is 0.1 x 0.2 x 0.1 cm. Patient's ulceration was dressed with Betadine paint dry sterile dressing. Educated the patient to continue to ambulate with offloading orthotic which she was understanding of. Patient will plan for surgery with her orthopedic surgeon on the at [facility]. After that the patient will continue to follow-up with her surgeon. At this time the patient will be discharged to the wound care center but was educated to reach out with any questions or concerns prior to surgery. She left the office pleased with the visit. (2) Other specified peripheral vascular diseases: CODE(S): I73.89 - Other specified peripheral vascular diseases (3) Charcot's joint of right foot: CODE(S): M14.671 - Charcot's joint, right ankle and foot
--- NOTE | 2023-08-04 09:17 | WC ---
08/02/2023 RIGHT PLANTAR FOOT
== END 2023-08-03 15:02 | disposition home or self-care (01) ==
LOC: WC 14:30
PROVIDERS: PCP Internal Medicine; Referring Provider Internal Medicine; Visit Provider Podiatrist Foot & Ankle Surgery
DX: E11.621 Type 2 diabetes mellitus with foot ulcer (principal); L97.512 Non-pressure chronic ulcer of other part of right foot with fat layer exposed; E11.51 Type 2 diabetes mellitus with diabetic peripheral angiopathy without gangrene; E11.610 Type 2 diabetes mellitus with diabetic neuropathic arthropathy; I89.0 Lymphedema, not elsewhere classified; R60.0 Localized edema
CPT/HCPCS: 11042

== ENCOUNTER 2023-10-18 08:06 | Outpatient (RCR) | payer MEDICARE, OTHER, SELFPAY ==
[2023-10-18 13:22] VITALS: BP 167/58; PULSE 75; RESP 18; TEMP 36.2
--- NOTE | 2023-10-18 16:00 | PCM.WC.PN ---
History of Present Illness Date of Service: 10/18/23 Chief Complaint: Full-thickness wound right foot History of Wound: Chronic full-thickness wound right foot Subjective Subjective Mrs. Vail is a 73-year-old diabetic female presenting to wound care center today for follow-up evaluation of right foot plantar wound and concern for infected right great toenail. Patient was seen by an orthopedic surgeon that underwent elective surgery for removal of her plantar sesamoids of the right foot. Her wound has now healed. The patient is concern for infection to the left great toe and she is unsure how this happened. Patient admits that her blood sugars well-controlled. No treatment thus far to the great toenail. Denies trauma. Denies constitutional symptoms. No other pedal complaints at this time. Objective Data Objective Data Vital Signs: Vital Signs Temp Pulse Resp BP O2 Del Method 97.1 F L 75 18 167/58 H Room Air 10/18/23 13:22 10/18/23 13:22 10/18/23 13:22 10/18/23 13:22 10/18/23 13:22 Oxygen Delivery Method Room Air Physical Exam Narrative Neurovascular status is unchanged. Hyperkeratotic tissue appreciated plantar aspect first metatarsophalangeal joint with evidence of healed wound. Evidence of sanguinous crust at the distal aspect of the right hallux. Evidence of subungual hematoma to the nailbed of the right hallux. Loosed hallux toenail appreciated. Mild pain on palpation to the right hallux toenail. No pain with calf pressure. Debridement Note Debridement Note Post-Debridement Measurements and Additional Note: Post-Debridement Measurements/Treatment - Nurse 1 - General Ulcer Assessment Start: 10/18/23 13:22 Freq: Status: Active Protocol: [email or web address] Activity Type Activity Date Activity User E-sign Co-sign Detail Recorded Client Recorded Date Recorded By Document 10/18/23 13:22 KW [id number] 10/18/23 13:36 KW 10/18/23 13:22 - Today's Visit Information Type of service Initial Visit Arrival Mode Wheelchair Accompanied by Patient Identification Verified (Name & Yes ) Vital Signs Temperature (97.8 F-99.1 F) 97.1 F L Temperature Source Temporal Pulse Rate (60-100) 75 Pulse Location Monitor Respiratory Rate (12-18) 18 Respiratory rate source Monitor Oxygen Delivery Method Room Air Blood Pressure (90/60-120/80) 167/58 H Blood Pressure Mean (mm Hg) 94 Source Monitor Position Sitting Blood Pressure Location Right Arm History Since Last Visit- (Skip if this is Patient's initial visit) Have you changed medications since your No last visit? Any new allergies or adverse reactions No Had a fall/change in ADL's that may No increase risk of falls Signs or symptoms of abuse and/or No neglect since last visit Have you been in the hospital since your No last visit? Has dressing in place as prescribed Yes Has compression in place as prescribed Yes Has offloadiing in place as prescribed N/A Experienced any changes in pain level or No management Left Footwear Regular Shoe Right Footwear Regular Shoe Pain Scale: 0-10 Numeric Is Patient Pain Free? Yes WC - Nurse 1 - General Ulcer Measurement Start: 10/18/23 13:22 Freq: Status: Active Protocol: Activity Type Activity Date Activity User E-sign Co-sign Detail Recorded Client Recorded Date Recorded By Document 10/18/23 13:22 [id number] 10/18/23 13:36 10/18/23 13:22 Wound Center Nurse 1 #2 RT GREAT TOE -Current Size (cm) - Length 0.1 -Current Size (cm) - Width 0.1 -Current Size (cm) - Depth 0.1 -Total Square Cm 0.01 -Date of Last Picture (Recall this 10/18/23 field) -Texture (Raegan-wound Skin Appearance) Assessed -Moisture (Raegan-wound Skin Appearance) Assessed -Color (Raegan-wound Skin Appearance) Assessed -Temperature (Raegan-wound Skin No Abnormality Appearance) (Pt Warm) -Tenderness on Palpation (Raegan-wound No Skin Appearance) -Ulcer Cleansing Rinsed/ Irrigated with Saline -Foul Odor after Cleansing No -Anesthetic Used 5% Lidocaine Gel -Wound Comment(s) MAY BE A BLISTER UNDERNEATH TOENAIL #1 RT PLANTAR -Current Size (cm) - Length 0.1 -Current Size (cm) - Width 0.1 -Current Size (cm) - Depth 0.1 -Total Square Cm 0.01 -Date of Last Picture (Recall this 10/18/23 field) -Texture (Raegan-wound Skin Appearance) Assessed,Callus -Moisture (Raegan-wound Skin Appearance) Assessed -Color (Raegan-wound Skin Appearance) Assessed -Temperature (Raegan-wound Skin No Abnormality Appearance) (Pt Warm) -Tenderness on Palpation (Raegan-wound No Skin Appearance) -Ulcer Cleansing Rinsed/ Irrigated with Saline -Anesthetic Used 5% Lidocaine Gel Right Calf (cm) 54 Right Ankle (cm) 32 WC - Nurse 2 - General Ulcer CM Notes Start: 10/18/23 13:22 Freq: Status: Active Protocol: Activity Type Activity Date Activity User E-sign Co-sign Detail Recorded Client Recorded Date Recorded By Document 10/18/23 13:49 [id number] 10/18/23 13:50 10/18/23 13:49 Pain Scale: 0-10 Numeric Is Patient Pain Free? Yes WC - Nurse 3 - General Ulcer D/C NN Start: 10/18/23 13:22 Freq: Status: Active Protocol: Activity Type Activity Date Activity User E-sign Co-sign Detail Recorded Client Recorded Date Recorded By Document 10/18/23 13:59 KW [id number] 10/18/23 14:04 10/18/23 13:59 Wound Care Center Nurse 3 Right -Tubular Bandage Single Layer -Size of Tubigrip Used Size F -Size F ($) 1 Pain Scale: 0-10 Numeric Is Patient Pain Free? Yes Assessment/Plan Assessment/Plan (1) Onychogryphosis: CODE(S): L60.2 - Onychogryphosis PLAN: Patient was examined and evaluated. All findings were discussed with the patient. All questions were answered to the patient's satisfaction. The patient's right plantar wound is now healed. Educated the patient on conservative versus surgical treatment regarding the right hallux toenail. The patient showed evidence of a thickened and loose toenail that she may have bumped but is unsure how it became problematic. I educated the patient that we can perform a temporary nail avulsion in the wound care center today and she agreed. Topical anesthesia was applied to the right hallux toenail. After anesthesia was confirmed, the right hallux was prepped and draped in normal aseptic manner. Using a sterile double-action nail nipper the proximal nail border was freed followed by the nail plate. The nail was avulsed and removed without incident. No purulent drainage was noted. Sanguinous drainage was appreciated. Bleeding was controlled. The area was flushed with copious amounts of normal saline. The nailbed was dressed with triple ointment antibiotic, sterile Band-Aid, Coban compression bandage was donned. Patient was instructed on soaking instructions and educated on signs and symptoms of infection. Patient to call the office with any questions or concerns. Follow-up at the wound care center with Dr. Carrasco in 2 week. (2) Pain around toenail, right foot: CODE(S): M79.674 - Pain in right toe(s)
--- NOTE | 2023-10-19 13:58 | WC ---
PHOTO 10/18/23 RIGHT GREAT TOE(I)
--- NOTE | 2023-10-19 14:00 | WC ---
PHOTO 10/18/23 RIGHT PLANTAR FOOT
== END 2023-10-28 23:59 | disposition home or self-care (01) ==
LOC: WC 08:06
PROVIDERS: PCP Internal Medicine; Referring Provider Internal Medicine; Visit Provider Podiatrist Foot & Ankle Surgery
DX: L60.2 Onychogryphosis (principal); M79.674 Pain in right toe(s)
CPT/HCPCS: 99213; G0463

== ENCOUNTER 2023-11-15 15:00 | Outpatient (RCR) | payer MEDICARE, OTHER, SELFPAY ==
[2023-10-29 00:34] VITALS: BP 167/58; PULSE 75; RESP 18; TEMP 36.2
[2023-11-01 15:31] VITALS: BP 161/63; PULSE 84; RESP 16; TEMP 36.6
--- NOTE | 2023-11-01 16:31 | PCM.WC.PN ---
History of Present Illness Date of Service: 11/01/23 Chief Complaint: Full-thickness wound right foot History of Wound: Chronic full-thickness wound right foot Subjective Subjective Mrs. Vail is a 73-year-old diabetic female presented wound care center today for follow-up evaluation of nail avulsion to the right great hallux. Patient has followed her up post procedure instructions. She denies any redness drainage or concern for infection. She denies any pain to the right great toe. She is able to ambulate without pain. She denies any new onset of trauma. Denies constitutional symptoms. No other pedal complaints at this time. Objective Data Objective Data Vital Signs: Vital Signs Temp Pulse Resp BP 97.8 F 84 16 161/63 H 11/01/23 15:31 11/01/23 15:31 11/01/23 15:31 11/01/23 15:31 Physical Exam Narrative Vascular: DP and PT pulse are palpable. CFT is brisk to all digits to the right lower extremity. Nonpitting edema appreciated to the right lower extremity. Skin temperature great is warm to warm from proximal ankle to distal digit. Neurological: Light touch intact. Patient does not respond to painful stimuli. Protective sensation is diminished. Dermatological: Evidence of status post nail avulsion to right hallux with granular nailbed. Maceration is appreciated secondary to soaking. Webspaces 1 through 4 are clean dry and intact. Musculoskeletal: No pain on palpation to the right hallux. No pain with calf pressure. Debridement Note Debridement Note Post-Debridement Measurements and Additional Note: Post-Debridement Measurements/Treatment - Nurse 1 - General Ulcer Assessment Start: 11/01/23 15:23 Freq: Status: Active Protocol: JENSEN Activity Type Activity Date Activity User E-sign Co-sign Detail Recorded Client Recorded Date Recorded By Document 11/01/23 15:31 CP [id number] 11/01/23 15:33 CP 11/01/23 15:31 - Today's Visit Information Type of service Follow-up Visit (Physician/DETENTION DEPUTY ) Arrival Mode Ambulatory, Walker Patient Identification Verified (Name & Yes ) Vital Signs Temperature (97.8 F-99.1 F) 97.8 F Temperature Source Temporal Pulse Rate (60-100) 84 Pulse Location Monitor Respiratory Rate (12-18) 16 Respiratory rate source Observation Blood Pressure (90/60-120/80) 161/63 H Blood Pressure Mean (mm Hg) 95 Source Monitor Position Sitting Blood Pressure Location Right Forearm History Since Last Visit- (Skip if this is Patient's initial visit) Have you changed medications since your No last visit? Any new allergies or adverse reactions No Had a fall/change in ADL's that may No increase risk of falls Signs or symptoms of abuse and/or No neglect since last visit Have you been in the hospital since your No last visit? Has dressing in place as prescribed Yes Has compression in place as prescribed Yes Has offloadiing in place as prescribed N/A Experienced any changes in pain level or No management Pain Scale: 0-10 Numeric Is Patient Pain Free? Yes - Nurse 1 - General Ulcer Measurement Start: 11/01/23 15:23 Freq: Status: Active Protocol: Activity Type Activity Date Activity User E-sign Co-sign Detail Recorded Client Recorded Date Recorded By Document 11/01/23 15:31 CP [id number] 11/01/23 15:33 CP 11/01/23 15:31 Wound Center Nurse 1 Right Calf (cm) 52 Right Ankle (cm) 35 - Nurse 2 - General Ulcer CM Notes Start: 11/01/23 15:23 Freq: Status: Active Protocol: Activity Type Activity Date Activity User E-sign Co-sign Detail Recorded Client Recorded Date Recorded By Document 11/01/23 16:13 KW [id number] 11/01/23 16:13 KW 11/01/23 16:13 Pain Scale: 0-10 Numeric Is Patient Pain Free? Yes - Nurse 3 - General Ulcer D/C NN Start: 11/01/23 15:23 Freq: Status: Active Protocol: Activity Type Activity Date Activity User E-sign Co-sign Detail Recorded Client Recorded Date Recorded By Document 11/01/23 16:13 KW [id number] 11/01/23 16:14 KW 11/01/23 16:13 Is Patient Pain Free? Yes - Visit Discharge Discharge Condition Stable Ambulatory Status Ambulatory, Walker Transportation Private Auto Accompanied by Medication Reconcilliation completed & Yes provided to patient/care provider Clinical Summary of Care Provided Yes Notes: BETADINE AND BANDAID APPLIED . STOP SOAKING PER DR AFLK. 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 All findings were discussed with the patient. All questions were answered to the patient's satisfaction. Patient is 2-week status post nail avulsion to right hallux. She is doing well with no concern or sign of infection. Educated the patient that there is no need to continue to soak which she was understanding of. She will apply Betadine paint daily at night as well as donned a sterile Band-Aid when wearing her compression bandage to decrease any pain or from the compression branding sticking to her right hallux nail bed. Patient will continue strict blood sugar control. Follow-up at the wound care center with Dr. Falk in 2 week. (2) Pain around toenail, right foot: CODE(S): M79.674 - Pain in right toe(s)
[2023-11-15 15:31] VITALS: BP 153/53; PULSE 79; RESP 18; TEMP 36.5
--- NOTE | 2023-11-15 15:57 | PN.PCM_ITS ---
History of Present Illness Date of Service: 11/15/23 Chief Complaint: Full-thickness wound right foot History of Wound: Chronic full-thickness wound right foot Subjective Subjective Mrs. Vail is a 73-year-old diabetic female presenting to wound care center today for follow-up evaluation of nail avulsion to the right great toenail. Patient has been doing Betadine soaked baths for the past 2 weeks. She admits to some maceration. Overall her wound is healed. She denies any drainage or redness. Denies any new onset of trauma. Denies constitutional symptoms. No other pedal complaints at this time. Objective Data Objective Data Vital Signs: Vital Signs Temp Pulse Resp BP O2 Del Method 97.7 F L 79 18 153/53 H Room Air 11/15/23 15:31 11/15/23 15:31 11/15/23 15:31 11/15/23 15:31 11/15/23 15:31 Oxygen Delivery Method Room Air Physical Exam Narrative Vascular: DP and PT pulse are palpable. CFT is brisk to all digits to the right lower extremity. Nonpitting edema appreciated to the right lower extremity. Skin temperature great is warm to warm from proximal ankle to distal digit. Neurological: Light touch intact. Patient does not respond to painful stimuli. Protective sensation is diminished. Dermatological: Evidence of healed nailbed to the right hallux. No sign of infection. Musculoskeletal: No pain on palpation to the right hallux. No pain with calf pressure. Debridement Note Debridement Note Post-Debridement Measurements and Additional Note: Post-Debridement Measurements/Treatment - Nurse 1 - General Ulcer Assessment Start: 11/01/23 15:23 Freq: Status: Active Protocol: [email or web address] Activity Type Activity Date Activity User E-sign Co-sign Detail Recorded Client Recorded Date Recorded By Document 11/01/23 15:31 CP [id number] 11/01/23 15:33 CP Document 11/15/23 15:31 KW [id number] 11/15/23 15:41 KW 11/01/23 11/15/23 15:31 15:31 - Today's Visit Information Type of service Follow-up Visit Follow-up Visit (Physician/HEALTH PROMOTION EDUCATOR (Physician/HEALTH PROMOTION EDUCATOR ) ) Arrival Mode Ambulatory, Wheelchair Walker Accompanied by Patient Identification Verified (Name & Yes Yes ) Vital Signs Temperature (97.8 F-99.1 F) 97.8 F 97.7 F L Temperature Source Temporal Temporal Pulse Rate (60-100) 84 79 Pulse Location Monitor Monitor Respiratory Rate (12-18) 16 18 Respiratory rate source Observation Observation Oxygen Delivery Method Room Air Blood Pressure (90/60-120/80) 161/63 H 153/53 H Blood Pressure Mean (mm Hg) 95 86 Source Monitor Monitor Position Sitting Sitting Blood Pressure Location Right Forearm Right Arm History Since Last Visit- (Skip if this is Patient's initial visit) Have you changed medications since your No No last visit? Any new allergies or adverse reactions No No Had a fall/change in ADL's that may No No increase risk of falls Signs or symptoms of abuse and/or No No neglect since last visit Have you been in the hospital since your No No last visit? Has dressing in place as prescribed Yes Yes Has compression in place as prescribed Yes Yes Has offloadiing in place as prescribed N/A No Experienced any changes in pain level or No No management Left Footwear Regular Shoe Right Footwear Regular Shoe Pain Scale: 0-10 Numeric Is Patient Pain Free? Yes Yes - Nurse 1 - General Ulcer Measurement Start: 11/01/23 15:23 Freq: Status: Active Protocol: Activity Type Activity Date Activity User E-sign Co-sign Detail Recorded Client Recorded Date Recorded By Document 11/01/23 15:31 CP [id number] 11/01/23 15:33 CP 11/01/23 15:31 Wound Center Nurse 1 Right Calf (cm) 52 Right Ankle (cm) 35 - Nurse 2 - General Ulcer CM Notes Start: 11/01/23 15:23 Freq: Status: Active Protocol: Activity Type Activity Date Activity User E-sign Co-sign Detail Recorded Client Recorded Date Recorded By Document 11/01/23 16:13 KW [id number] 11/01/23 16:13 KW Document 11/15/23 15:47 JF [id number] 11/15/23 15:47 JF 11/01/23 11/15/23 16:13 15:47 Pain Scale: 0-10 Numeric Is Patient Pain Free? Yes Yes - Nurse 3 - General Ulcer D/C NN Start: 11/01/23 15:23 Freq: Status: Active Protocol: Activity Type Activity Date Activity User E-sign Co-sign Detail Recorded Client Recorded Date Recorded By Document 11/01/23 16:13 KW [id number] 11/01/23 16:14 KW Document 11/15/23 15:47 [id number] 11/15/23 15:48 11/01/23 11/15/23 16:13 15:47 Pain Scale: 0-10 Numeric Is Patient Pain Free? Yes Yes WC - Visit Discharge Discharge Condition Stable Stable Ambulatory Status Ambulatory, Wheelchair Walker Transportation Private Auto Private Auto Accompanied by Medication Reconcilliation completed & Yes provided to patient/care provider Clinical Summary of Care Provided Yes Notes: BETADINE AND betadine and BANDAID APPLIED bandaid today . STOP SOAKING PER DR FALK. 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 All findings were discussed with the patient. All questions were answered to the patient's satisfaction. Patient's right hallux nail avulsion is now healed. There is evidence of periwound maceration to the nailbed secondary to Betadine soaked baths. Educated the patient to stop soaking and Betadine water solution and just to apply Betadine paint and a Band-Aid during the day and to remove at night prior to bed show the great hallux on the right foot can air dry which she is understanding of. I educated the patient that if she still has evidence of maceration after 7 to 10 days she is to follow-up in private office for evaluation. Patient left the office pleased with the visit will be discharged from the wound care center at this time. (2) Pain around toenail, right foot: CODE(S): M79.674 - Pain in right toe(s)
== END 2023-11-15 16:12 | disposition home or self-care (01) ==
LOC: WC 15:00
PROVIDERS: PCP Internal Medicine; Referring Provider Internal Medicine; Visit Provider Podiatrist Foot & Ankle Surgery
DX: L60.2 Onychogryphosis (principal); E11.9 Type 2 diabetes mellitus without complications; M79.674 Pain in right toe(s)
CPT/HCPCS: 99213; G0463